=== PATIENT | male | born 1955 | race Caucasian/White ===

== ENCOUNTER 2017-01-03 21:49 | Inpatient (IN) | payer MEDICARE, OTHER, MEDICAID ==
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
[2017-01-04] MEDS ORDERED: Furosemide 20 MG/2 ML VIAL IVPUSH ONE ×3 (02:18→09:31)
[2017-01-04] MEDS ORDERED: LORazepam 2 MG/ML MDV IVPUSH ONE (02:43)
[2017-01-04] MEDS ORDERED: Lidocaine 2% Jelly 10 ML Urojet MUCMEM ONE (03:51)
[2017-01-04] MEDS ORDERED: Acetaminophen/oxyCODONE 325-5 MG Tab PO PRN ×2 (04:07→14:47)
[2017-01-04] MEDS ORDERED: Sodium Chloride 0.9% 250 ML ONE (05:12)
[2017-01-04] MEDS ORDERED: hydrALAZINE 20 MG/ML SDV IVPUSH PRN (06:26)
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
--- NOTE | 2017-01-04 09:15 | CT ---
CT abdomen and pelvis Technique: Multiple axial sections were obtained from above the kidneys inferiorly through the pubic symphysis. Intravenous and oral contrast was not utilized. Study has been performed as a ureteral stone protocol. Comparison: Previous CT abdomen and pelvis exam performed as a stone protocol dated 09/11/15. Findings: Visualized lung bases show nothing acute. Noncontrast appearance of the liver and spleen appears within normal limits. Adrenal glands show no nodule. Pancreas is within normal limits. Gallbladder shows no calcified gallstones. Mild atherosclerotic calcifications seen within the aorta. No retroperitoneal adenopathy is seen. Small normal-appearing lymph nodes are seen within the retroperitoneum which are stable from prior exam. Increased density seen within the bladder. Difficult to exclude a small amount of blood or high density sediment. Bladder wall is also thickened presumably due to change from bladder outlet obstruction. Bladder does not appear significantly dilated. No pelvic mass or adenopathy is seen. Increased density noted within the anterior abdominal wall fat compatible with change from previous subcutaneous injections. Appendix is seen and appears normal in size. Previous lumbar spine surgery is seen. Mild degenerative change also present within the spine. Small intrathecal catheter is seen within the spine believed to be disconnected. Kidneys show no abnormal calcifications. No ureteral stone or ureteral dilatation is seen. Impression: 1. Increased density within the bladder either due to small amount of blood or high density sediment. Bladder wall is mildly thickened. 2. Previous lumbar spine surgery which appears stable from prior study. Small intrathecal catheter is seen which appears to be disconnected. These findings are stable from prior exam. 3. Other incidental findings. No renal calculi, hydronephrosis or ureteral stone is seen. Agree with preliminary report issued by [employer] (preliminary report dictated on 01/04/17, 12:15 AM Central Time) Diagnostic code #2
[2017-01-04] MEDS ORDERED: Furosemide 20 MG/2 ML VIAL ONE (09:35)
[2017-01-04] MEDS: Famotidine 20 MG Tab PO SCH ×2 (09:41→20:43)
[2017-01-04] MEDS: Sodium Chloride 0.9% 1,000 ML IV SCH ×2 (09:44→19:25)
[2017-01-04] MEDS ORDERED: Oxybutynin 5 MG Tab PO PRN (10:51)
[2017-01-04] MEDS ORDERED: Magnesium Sulfate/Water 2 GM in Premix Bag 1 BAG IV ONE (10:53)
[2017-01-04] MEDS ORDERED: Metoprolol Succinate 50 MG Tab.ER PO SCH (11:00)
[2017-01-04] MEDS: Nicotine 14 MG/24 Hr Patch TRDERM SCH (11:15)
[2017-01-04] MEDS: Polyethylene Glycol 3350 Powder 17 GM Packet PO SCH (11:18)
[2017-01-04] MEDS: Lisinopril 20 MG Tab PO SCH (11:19)
[2017-01-04] MEDS: amLODIPine 5 MG Tab PO SCH (11:19)
[2017-01-04] MEDS ORDERED: Metoprolol Succinate 50 MG Tab.ER PO ONE (12:45)
[2017-01-04] MEDS ORDERED: CIPROFLOXACIN HCL 500 MG PO SCH (13:00)
[2017-01-04] MEDS ORDERED: Levofloxacin/Dextrose 5%-Water 750 MG in Premix Bag 1 BAG IV ONE (13:49)
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
[2017-01-04] MEDS: Levofloxacin/Dextrose 5%-Water 750 MG in Premix Bag 1 BAG IV SCH (15:37)
[2017-01-04] MEDS: Ferrous Sulfate 325 MG Tab PO SCH (20:43)
[2017-01-05] MEDS: Sodium Chloride 0.9% 1,000 ML IV SCH (05:30)
[2017-01-05] MEDS: Nicotine 14 MG/24 Hr Patch TRDERM SCH (08:21)
[2017-01-05] MEDS: amLODIPine 5 MG Tab PO SCH (08:23)
[2017-01-05] MEDS: Famotidine 20 MG Tab PO SCH (08:23)
[2017-01-05] MEDS: Ferrous Sulfate 325 MG Tab PO SCH (08:23)
[2017-01-05] MEDS: Lisinopril 20 MG Tab PO SCH (08:23)
[2017-01-05] MEDS: Polyethylene Glycol 3350 Powder 17 GM Packet PO SCH (08:25)
[2017-01-05] MEDS ORDERED: Metoprolol Succinate 50 MG Tab.ER PO SCH (09:00)
[2017-01-05] MEDS ORDERED: cloNIDine 0.1 MG Tab PO SCH (09:00)
[2017-01-05] MEDS ORDERED: Allopurinol 300 MG Tab PO SCH (10:51)
--- NOTE | 2017-01-05 15:09 | PCM.DCSUM1 ---
Discharge Summary - Hospital Course Free Text/Narrative:: Florencio is a 61yo male admitted through the ER with acute hematuria, large clots and urinary retention. Initially it was thought that he had rectal bleeding but further investigation reveals this to be urethral in nature and not rectal. He was unable to void in the ED. Andino cath was placed with becky hematuria. Andino was irrigated x 2 with large clots. UA was obtained but unable to be run as it was too bloody. Patient had lumbar back surgery 2 weeks ago, had andino catheter inserted at that time, without difficulty. Andino was removed without difficulty and he was voiding without difficulty after removal. He has had no problems with voiding, dysuria, urinary retention since that time. He has hx of prostate cancer with TURP one year ago in [facility]. He saw Dr. Jerome, Urologist yesterday for a checkup. He had no interventions but was told his PSA was elevated and "the doctor was concerned about that. Patient was admitted for anemia and hematuria. He was transfused one unit PRBC with improvement in hgb. Repeat UA was obtained the following morning with AUTI noted. He was started on Levaquin IV. Call was placed to Urology who recommended keep andino cath in place for at least 24 hours then dc. Urine became clear, without gross hematuria. The following day, catheter was discontinued. Patient was able to void on his own without evidence of hematuria or clots. He will be discharged on levaquin oral abx and with follow up with Urology for further eval and likely cystoscopy based on Dr. Crisostomo's recommendations over the telephone. PT /OT worked with patient, as well as social work who found him to be in need of many services. He will resume PT/OT, home and community based referral placed. Discussed [facility] placement with SW who discussed with patient. He may consider this option in the future. He will have f/up with his PCP, ONUR Low within 1 week of discharge for recheck. - Discharge Data Discharge Date: 01/05/17 (admit date 01/04/17) Discharge Disposition: Home, Self-Care 01 Condition: Good - Discharge Diagnosis/Problem(s) (1) Hematuria SNOMED Code(s): 73266741 ICD Code: R31.9 - HEMATURIA, UNSPECIFIED Status: Acute Priority: High (2) Anemia SNOMED Code(s): 154806946 ICD Code: D64.9 - ANEMIA, UNSPECIFIED Status: Acute Priority: High Qualifiers: Anemia type: unspecified type Qualified Code(s): D64.9 - Anemia, unspecified (3) UTI (urinary tract infection) SNOMED Code(s): 59001659 ICD Code: N39.0 - URINARY TRACT INFECTION, SITE NOT SPECIFIED Status: Acute Priority: High Qualifiers: Urinary tract infection type: acute cystitis Hematuria presence: with hematuria Qualified Code(s): N30.01 - Acute cystitis with hematuria (4) Status post lumbar surgery SNOMED Code(s): 092235084, 847204864 ICD Code: Z98.890 - OTHER SPECIFIED POSTPROCEDURAL STATES Status: Acute Priority: High Problem Details: s/p lumbar surgery 2 wks ago - Patient Summary/Data Operative Procedure(s) Performed: None Complications: None Consults: Consultations 01/04/17 06:24 Consult to Case Management [CONS] Routine Consult to Associate Professor Of Biblical Studies [CONS] Routine 01/04/17 09:08 Consult to Occupational Therapy [OT Evaluation and Treatment] [CONS] Routine Consult to Physical Therapy [PT Evaluation and Treatment] [CONS] Routine Labs Pending at D/C: None Recommended Follow-up Testing/Procedures: Follow up with Urology as soon as next appointment is available Follow up with ONUR Lara in 5-7 days for recheck Return to ER or clinic if unable to void or if blood noted in urine, fever, abdominal pain, other concerns Planned Operative Procedure(s) after DC: Likely cystoscopy with Urology at follow up per Dr. Loving recommendations Hospital Course: As above - Patient Instructions Diet: Heart Healthy Diet, Drink 8-10+ Glasses/Day Activity: As Tolerated Showering/Bathing: May Shower Notify Provider of: Fever, Increased Pain, Nausea and/or Vomiting - Discharge Plan Prescriptions/Med Rec: Levofloxacin [Levaquin] 500 mg PO DAILY #14 tablet Home Medications: Home Meds Allopurinol [Zyloprim] 150 mg PO MOWEFR 08/17/15 [History] Lisinopril 20 mg PO DAILY 08/17/15 [History] Oxybutynin 5 mg PO BID PRN MDD overactive bladder 08/17/15 [History] metFORMIN [Glucophage] 1,000 mg PO BID 08/17/15 [History] Ascorbate Calcium [Vitamin C] 500 mg PO BID 01/04/17 [History] Aspirin [Adult Low Dose Aspirin EC] 81 mg PO DAILY 01/04/17 [History] Calcium Carbonate/Vitamin D3 [Calcium 500-Vit D3 200 Caplet] 1 tab PO BID [History] Diazepam [Valium] 5 mg PO QID PRN 01/04/17 [History] Ferrous Sulfate 325 mg PO BID 01/04/17 [History] Hydrocodone/Acetaminophen [[place] 5-325] 1 - 2 tab PO Q4H PRN 01/04/17 [History] Indomethacin [Indocin] 25 mg PO DAILY PRN 01/04/17 [History] Leuprolide [Lupron Depot 4-Month] 30 mg SQ ASDIRECTED 01/04/17 [History] Metoprolol Succinate 100 mg PO DAILY 01/04/17 [History] Nicotine [Habitrol] 14 mg TRDERM DAILY 01/04/17 [History] Polyethylene Glycol 3350 [MiraLAX] 17 gm PO DAILY 01/04/17 [History] Sennosides/Docusate Sodium [Senna-Docusate Sodium] 1 tab PO BID 01/04/17 [ History] amLODIPine [Norvasc] 5 mg PO DAILY 01/04/17 [History] cloNIDine [Catapres] 0.1 mg PO DAILY 01/04/17 [History] Levofloxacin [Levaquin] 500 mg PO DAILY #14 tablet 01/05/17 [Rx] Patient Handouts: Anemia, Nonspecific, Blood Transfusion, Care After, Easy-to- Read, Hematuria, Adult Forms: ED Department Discharge Referrals: Charu Quintana NP [Primary Care Provider] - Greg Crisostomo MD [Consulting Physician] - 01/22/17 1:30 pm (See Dr Crisostomo at [facility] in [place] on January 22 at 1:30 Central time.) - Discharge Summary/Plan Comment DC Time >30 min.: Yes (40 min) - General Info Date of Service: 01/05/17 Admission Dx/Problem (Free Text: Admission Diagnosis/Problem Admission Diagnosis/Problem Anemia Florencio is seen late morning, doing well. Denies complaints of pain, discomfort. Afebrile. Andino dc'd this am, voided without difficulty. Functional Status: Reports: pain controlled, tolerating diet, ambulating, urinating. Denies: new symptoms - Review of Systems General: Reports: No Symptoms HEENT: Reports: no symptoms Pulmonary: Reports: no symptoms Cardiovascular: Reports: No Symptoms Gastrointestinal: Reports: No symptoms Genitourinary: Reports: other (andino cath dc'd this morning, voiding independently, clear yellow urine) Musculoskeletal: Reports: no symptoms Skin: Reports: no symptoms Neurological: Reports: No Symptoms Psychiatric: Reports: no symptoms - Patient Data Vitals - Most Recent: Last Vital Signs Temp 98.8 F 01/05/17 02:57 Pulse 80 01/05/17 08:24 Resp 12 01/05/17 02:57 BP 145/86 H 01/05/17 08:24 Pulse Ox 93 L 01/05/17 02:57 Weight - Most Recent: 252 lb 9.6 oz I&O - Last 24 hours: Intake & Output 01/05/17 01/05/17 01/05/17 06:59 14:59 22:59 Intake Total 2686 120 Output Total 2000 Balance 686 120 Lab Results - Last 24 hrs: Laboratory Results - last 24 hr 01/05/17 01/05/17 Range/Units 09:02 09:02 WBC 6.36 (4.23-9.07) K/mm3 RBC 3.38 L (4.63-6.08) M/mm3 Hgb 10.9 L (13.7-17.5) gm/L Hct 32.6 L (40.1-51.0) % MCV 96.4 H (79.0-92.2) fl MCH 32.2 (25.7-32.2) pg MCHC 33.4 (32.2-35.5) g/dl RDW Std Deviation 47.8 H (35.1-43.9) fL Plt Count 481 H (163-337) K/mm3 MPV 9.7 (9.4-12.3) fl Neut % (Auto) 65.8 (34.0-67.9) % Lymph % (Auto) 11.8 L (21.8-53.1) % Lee % (Auto) 9.3 (5.3-12.2) % Eos % (Auto) 11.5 H (0.8-7.0) Baso % (Auto) 1.3 H (0.1-1.2) % Neut # (Auto) 4.19 (1.78-5.38) K/mm3 Lymph # (Auto) 0.75 L (1.32-3.57) K/mm3 Lee # (Auto) 0.59 (0.30-0.82) K/mm3 Eos # (Auto) 0.73 H (0.04-0.54) K/mm3 Baso # (Auto) 0.08 (0.01-0.08) K/mm3 Sodium 140 (136-145) mEq/L Potassium 4.1 (3.5-5.1) mEq/L Chloride 106 (98-107) mEq/L Carbon Dioxide 23 (21-32) mEq/L Anion Gap 15.1 H (5-15) BUN 8 (7-18) mg/dL Creatinine 0.7 (0.7-1.3) mg/dL Est Cr Clr Drug Dosing 135.80 mL/min Estimated GFR (MDRD) > 60 (>60) mL/min BUN/Creatinine Ratio 11.4 L (14-18) Glucose 114 H (74-106) mg/dL Calcium 8.8 (8.5-10.1) mg/dL Magnesium 1.6 L (1.8-2.4) mg/dl C-Reactive Protein 3.2 H* (<1.0) mg/dL GREG Results - Last 24 hrs: Microbiology 01/04/17 10:01 Urine Culture - Preliminary Urine, Bladder NO GROWTH AFTER 1 DAY Med Orders - Current: Current Medications Allopurinol (Zyloprim) 150 mg PO MOWEFR [facility] Last Admin: 01/05/17 13:22 Dose: 150 mg Amlodipine Besylate (Norvasc) 5 mg PO DAILY [facility] Last Admin: 01/05/17 08:23 Dose: 5 mg Clonidine HCl (Catapres) 0.1 mg PO DAILY [facility] Last Admin: 01/05/17 08:24 Dose: 0.1 mg Famotidine (Pepcid) 20 mg PO BID [facility] Last Admin: 01/05/17 08:23 Dose: 20 mg Ferrous Sulfate (Ferrous Sulfate) 325 mg PO BID [facility] Last Admin: 01/05/17 08:23 Dose: 325 mg Hydralazine HCl (Apresoline) 20 mg IVPUSH Q4H PRN PRN Reason: sb/p >160 Levofloxacin/Dextrose 750 mg/ (Premix) 150 mls @ 100 mls/hr IV Q24H [facility] Last Admin: 01/04/17 15:37 Dose: 100 mls/hr Lisinopril (Prinivil) 20 mg PO DAILY [facility] Last Admin: 01/05/17 08:23 Dose: 20 mg Metoprolol Succinate (Toprol Xl) 100 mg PO DAILY [facility] Last Admin: 01/05/17 08:24 Dose: 100 mg Miscellaneous Information (Remove Patch) 0 ea TRDERM DAILY [facility] Last Admin: 01/05/17 08:49 Dose: 1 ea Nicotine (Habitrol) 14 mg TRDERM DAILY [facility] Last Admin: 01/05/17 08:21 Dose: 14 mg Oxybutynin Chloride (Oxybutynin) 5 mg PO BID PRN PRN Reason: OVERACTIVE BLADDER Last Admin: 01/04/17 11:15 Dose: 5 mg Oxycodone/Acetaminophen (Percocet 325-5 Mg) 2 tab PO Q6H PRN PRN Reason: Pain Last Admin: 01/04/17 20:43 Dose: 2 tab Polyethylene Glycol (Miralax) 17 gm PO DAILY [facility] Last Admin: 01/05/17 08:25 Dose: 17 gm Discontinued Medications Furosemide (Lasix) 20 mg IVPUSH ONETIME ONE Stop: 01/04/17 02:19 Last Admin: 01/04/17 02:26 Dose: 20 mg Furosemide (Lasix) 20 mg IVPUSH ONETIME ONE Stop: 01/04/17 07:01 Last Admin: 01/04/17 09:40 Dose: 20 mg Furosemide (Lasix) 20 mg IVPUSH NOW ONE Stop: 01/04/17 09:32 Last Admin: 01/04/17 09:46 Dose: Not Given Furosemide (Lasix) Confirm Administered Dose 20 mg .ROUTE .STK-MED ONE Stop: 01/04/17 09:36 Last Admin: 01/04/17 09:46 Dose: Not Given Sodium Chloride (Normal Saline) Confirm Administered Dose 250 mls @ as directed .ROUTE .STK-MED ONE Stop: 01/04/17 05:13 Last Admin: 01/04/17 05:40 Dose: 250 ml Sodium Chloride (Normal Saline) 1,000 mls @ 100 mls/hr IV ASDIRECTED [facility] Last Admin: 01/05/17 05:30 Dose: 100 mls/hr Magnesium Sulfate 2 gm/ Premix 50 mls @ 25 mls/hr IV ONETIME ONE Stop: 01/04/17 12:52 Last Admin: 01/04/17 11:14 Dose: 25 mls/hr Levofloxacin/Dextrose 750 mg/ (Premix) 150 mls @ 100 mls/hr IV ONETIME ONE Stop: 01/04/17 15:18 Last Admin: 01/04/17 14:21 Dose: Not Given Lidocaine HCl (Xylocaine 2% Jelly) 10 ml MUCMEM ONETIME ONE Stop: 01/04/17 03:52 Last Admin: 01/04/17 21:20 Dose: Not Given Lorazepam (Ativan) 0.5 mg IVPUSH ONETIME ONE Stop: 01/04/17 02:44 Last Admin: 01/04/17 02:49 Dose: 0.5 mg Metoprolol Succinate (Toprol Xl) 100 mg PO DAILY [facility] Last Admin: 01/04/17 12:04 Dose: Not Given Metoprolol Succinate (Toprol Xl) 50 mg PO ONETIME ONE Stop: 01/04/17 12:46 Last Admin: 01/04/17 12:20 Dose: 50 mg Oxycodone/Acetaminophen (Percocet 325-5 Mg) 2 tab PO Q6H PRN PRN Reason: Pain Last Admin: 01/04/17 04:50 Dose: 2 tab Ciprofloxacin Hcl (500 Mg) 0 each PO QID [facility] Last Admin: 01/04/17 12:09 Dose: Not Given - Exam Quality Assessment: Reports: DVT prophylaxis (Teds ordered- patient is refusing ; chemical dvt prophylaxis is contraindicated due to hematuria/anemia. SCD's ordered) General: Reports: alert, oriented, cooperative, no acute distress HEENT: Reports: Pupils equal, Pupils reactive, EOMI, Mucous membr. moist/pink Neck: Reports: supple Lungs: Reports: Clear to auscultation, Normal respiratory effort Cardiovascular: Reports: Regular Rate, Regular Rhythm Abdomen: Reports: bowel sounds present, soft, no tenderness, no distension (Male) Exam: Deferred Rectal (Males) Exam: Deferred Extremities: Reports: no calf tenderness Skin: Reports: warm, dry, intact Neurological: Reports: no new focal deficit Psy/Mental Status: Reports: alert, normal affect, normal mood *Q Meaningful Use (DIS) - VTE *Q VTE Criteria *Q: - Stroke *Q Stroke Criteria *Q: - AMI *Q AMI Criteria *Q:
[2017-01-05 15:18] VITALS: BP 123/80
[2017-01-05] MEDS: Levofloxacin/Dextrose 5%-Water 750 MG in Premix Bag 1 BAG IV SCH (15:26)
== END 2017-01-05 17:23 | disposition home or self-care (01) | DRG 812 ==
LOC: JD.ED 21:49 → JD.MS 01-04 02:16 → OBSVTOIN 01-04 02:16 → JD.MS 01-04 04:01
PROVIDERS: ADMIT Internal Medicine Cardiovascular Disease; ATTEND Internal Medicine Cardiovascular Disease
PROC: 30233N1 Transfusion of Nonautologous Red Blood Cells into Peripheral Vein, Percutaneous Approach (ICD-10-PCS; principal; 2017-01-04)
DX: D64.9 Anemia, unspecified (principal); N39.0 Urinary tract infection, site not specified; T81.4XXA Infection following a procedure, initial encounter; R31.9 Hematuria, unspecified; Z98.890 Other specified postprocedural states; Z85.46 Personal history of malignant neoplasm of prostate; I10 Essential (primary) hypertension; K21.9 Gastro-esophageal reflux disease without esophagitis; E11.9 Type 2 diabetes mellitus without complications; C61 Malignant neoplasm of prostate; Z79.84 Long term (current) use of oral hypoglycemic drugs; G89.29 Other chronic pain; M54.9 Dorsalgia, unspecified; Z79.899 Other long term (current) drug therapy; Z87.891 Personal history of nicotine dependence
CPT/HCPCS: 36415; 36430; 51700; 51702; 74176; 74176-26; 80048; 80053; 81001; 83690; 83735; 85025; 85610; 86140; 86850; 86900; 86901; 86922; 87086; 96374; 96375; 97116-GP; 97161-GP; 97166-GO; 97535-GO; 99232; 99239; 99284; 99285-25; A9270-GY; J1956; J2060; J3475; J7040; J7050; P9016

== ENCOUNTER 2017-03-16 17:09 | Emergency (ER) | payer MEDICARE, OTHER, MEDICAID ==
[2017-03-16 17:21] VITALS: BP 154/77
--- NOTE | 2017-03-16 18:16 | EDM.PDOC ---
ED HPI GENERAL MEDICAL PROBLEM - General Chief Complaint: Back Pain or Injury Stated Complaint: Back pain Time Seen by Provider: 03/16/17 17:40 Source of Information: Reports: Patient, RN Notes Reviewed History Limitations: Reports: No Limitations - History of Present Illness INITIAL COMMENTS - FREE TEXT/NARRATIVE: 61 year old male presents to the ED with complaints of left sided back and flank pain. He had a laminectomy of the lumbar spine with Dr. Delgado on . He has fallen twice since the surgery. After the first fall he had x-rays done and was told they were normal. He then fell again 1 week ago. He reports landing on his buttocks. He's had persistent left sided pain since the fall. He called his surgeon and they recommended he come to the ED if symptoms worsen. He reports a "grabbing" and tightening sensation to his low back. He denies numbness, tingling, weakness, paresthesias, saddle anesthesia, or loss of bowel/ bladder function. He uses a walker at home and is ambulating with steady gait per his baseline. He also has pain to his left flank. He reports hematuria earlier this week as well. He has a history of prostate cancer and has chronic difficulty starting his stream. He reports urinary frequency at night time. Lower Back Pain Score (Numeric/FACES): 4 - Related Data Allergies Allergy/AdvReac Type Severity Reaction Status Date / Time No Known Allergies Allergy Verified 09/19/16 22:16 Home Meds: Home Meds Allopurinol [Zyloprim] 150 mg PO MOWEFR 08/17/15 [History] Lisinopril 20 mg PO DAILY 08/17/15 [History] Oxybutynin 5 mg PO BID PRN MDD overactive bladder 08/17/15 [History] metFORMIN [Glucophage] 1,000 mg PO BID 08/17/15 [History] Ascorbate Calcium [Vitamin C] 500 mg PO BID 01/04/17 [History] Aspirin [Adult Low Dose Aspirin EC] 81 mg PO DAILY 01/04/17 [History] Calcium Carbonate/Vitamin D3 [Calcium 500-Vit D3 200 Caplet] 1 tab PO BID [History] Diazepam [Valium] 5 mg PO QID PRN 01/04/17 [History] Ferrous Sulfate 325 mg PO BID 01/04/17 [History] Hydrocodone/Acetaminophen [[place] 5-325] 1 - 2 tab PO Q4H PRN 01/04/17 [History] Indomethacin [Indocin] 25 mg PO DAILY PRN 01/04/17 [History] Leuprolide [Lupron Depot 4-Month] 30 mg SQ ASDIRECTED 01/04/17 [History] Metoprolol Succinate 100 mg PO DAILY 01/04/17 [History] Nicotine [Habitrol] 14 mg TRDERM DAILY 01/04/17 [History] Polyethylene Glycol 3350 [MiraLAX] 17 gm PO DAILY 01/04/17 [History] Sennosides/Docusate Sodium [Senna-Docusate Sodium] 1 tab PO BID 01/04/17 [ History] amLODIPine [Norvasc] 5 mg PO DAILY 01/04/17 [History] cloNIDine [Catapres] 0.1 mg PO DAILY 01/04/17 [History] Levofloxacin [Levaquin] 500 mg PO DAILY #14 tablet 01/05/17 [Rx] Past Medical History HEENT History: Reports: Impaired Vision Cardiovascular History: Reports: Hypertension Gastrointestinal History: Reports: GERD Genitourinary History: Reports: Other (See Below) Other Genitourinary History: prostate cancer Musculoskeletal History: Reports: Back Pain, Chronic, Fracture Neurological History: Reports: Brain Injury, Head Trauma Psychiatric History: Reports: None Endocrine/Metabolic History: Reports: Diabetes, Type II Hematologic History: Reports: None Immunologic History: Reports: None Oncologic (Cancer) History: Reports: Prostate Dermatologic History: Reports: None - Infectious Disease History Infectious Disease History: Reports: None - Past Surgical History Cardiovascular Surgical History: Reports: None Respiratory Surgical History: Reports: None GI Surgical History: Reports: Colonoscopy Male Surgical History: Reports: TURP-Transurethral Resection of Prostate Neurological Surgical History: Reports: Lumbar Spine Other Neurological Surgeries/Procedures: 12/2016 lumbar spine surgery Musculoskeletal Surgical History: Reports: Knee Replacement, Other (See Below) Other Musculoskeletal Surgeries/Procedures:: bilateral knee replacements Social & Family History - Family History Family Medical History: Unobtainable - Tobacco Use Smoking Status *Q: Current Every Day Smoker Years of Tobacco use: 25 Packs/Tins Daily: 0.5 Used Tobacco, but Quit: No Second Hand Smoke Exposure: No - Caffeine Use Caffeine Use: Reports: Soda - Alcohol Use Days Per Week of Alcohol Use: 4 Number of Drinks Per Day: 3 Total Drinks Per Week: 12 - Recreational Drug Use Recreational Drug Use: No - Living Situation & Occupation Living situation: Reports: Single Occupation: Disabled ED ROS GENERAL - Review of Systems Review Of Systems: See Below Constitutional: Reports: No Symptoms. Denies: Fever, Chills Respiratory: Reports: No Symptoms. Denies: Shortness of Breath Cardiovascular: Reports: No Symptoms. Denies: Chest Pain GI/Abdominal: Reports: No Symptoms. Denies: Abdominal Pain, Nausea, Vomiting : Reports: Flank Pain, Frequency, Hematuria Musculoskeletal: Reports: Back Pain, Muscle Pain Neurological: Reports: No Symptoms. Denies: Numbness, Paresthesia, Tingling, Difficulty Walking, Weakness ED EXAM,LOWER BACK PAIN/INJURY - Physical Exam Exam: See Below Exam Limited By: No Limitations General Appearance: Alert, WD/WN, No Apparent Distress Respiratory/Chest: No Respiratory Distress, Lungs Clear, Normal Breath Sounds Cardiovascular: Regular Rate, Rhythm GI/Abdominal: Normal Bowel Sounds, Soft, Non-Tender Back Exam: Normal Inspection, Full Range of Motion, CVA Tenderness (L), Muscle Spasm, Paraspinal Tenderness (left side ). No: CVA Tenderness (R), Vertebral Tenderness Neurological: Alert, Normal Mood/Affect, Normal Dorsiflexion, Normal Plantar Flexion, Normal Gait (with walker), No Motor/Sensory Deficits Skin Exam: Warm, Dry, Intact Course - Vital Signs Last Recorded V/S: Last Vital Signs Temp 97.5 F 03/16/17 17:16 Pulse 77 03/16/17 17:16 Resp 16 03/16/17 17:16 BP 154/77 H 03/16/17 17:16 Pulse Ox 97 03/16/17 17:16 - Orders/Labs/Meds Orders: Active Orders 24 hr Category Date Time Status Abdomen Pelvis wo Cont [CT] Stat Exams 03/16/17 19:01 Taken Labs: Laboratory Tests 03/16/17 Range/Units 18:25 Urine Color Yellow (Yellow) Urine Appearance Clear (Clear) Urine pH 6.0 (5.0-8.0) Ur Specific [place] 1.020 (1.005-1.030) Urine Protein 1+ H (Negative) Urine Glucose (UA) Negative (Negative) Urine Ketones Negative (Negative) Urine Occult Blood 2+ H (Negative) Urine Nitrite Negative (Negative) Urine Bilirubin Negative (Negative) Urine Urobilinogen 0.2 (0.2-1.0) Ur Leukocyte Esterase Negative (Negative) Urine RBC 20-30 H (0-5) /hpf Urine WBC 0-5 (0-5) /hpf Ur Epithelial Cells 0-5 (0-5) /hpf Urine Bacteria Occasional (FEW) /hpf Urine Mucus Not seen (FEW) /hpf - Re-Assessments/Exams Free Text/Narrative Re-Assessment/Exam: 03/16/17 19:01 Patient has 2+ blood and 20-30 RBCs on UA. No infection. CT of lumbar spine reviewed with Dr. Orellana. Awaiting radiologist read. There appears to be a possible kidney stone, however will need proper abdomen/pelvis CT to further evaluate. 03/16/17 19:08 CT of lumbar spine read by Dr. Christina, impression: 1. extensive lumbar spine surgery with degenerative change. Previous epidural electrode is seen. 2. Nothing acute appreciated. 03/16/171999 CT of abdomen/pelvis without contrast is negative for hydronephrosis or kidney stone. Patient will be discharged home. He is to f /u with his PCP next week. He has pain medication at home and declined any additional prescriptions. Educated on return precautions. Discharge instructions as documented. Departure - Departure Time of Disposition: 20:10 Disposition: Home, Self-Care 01 Condition: Good Clinical Impression: Hematuria Chronic back pain Qualifiers: Back pain location: low back pain Back pain laterality: left Sciatica presence : without sciatica Qualified Code(s): M54.5 - Low back pain - Discharge Information Instructions: Hematuria, Adult Referrals: Charu Quintana [employer] [Primary Care Provider] - Forms: ED Department Discharge Additional Instructions: Continue your current medications as prescribed Return to ER with any new or worsening symptoms Follow-up with your primary care provider next week for recheck - My Orders Last 24 Hours: My Active Orders 03/16/17 19:01 Abdomen Pelvis wo Cont [CT] Stat - Assessment/Plan Last 24 Hours: My Active Orders 03/16/17 19:01 Abdomen Pelvis wo Cont [CT] Stat
--- NOTE | 2017-03-16 18:57 | CT ---
CT lumbar spine Technique: Multiple axial sections were obtained from above the T11-T12 disc inferiorly to the L5-S1 disc. Reconstructed sagittal and coronal images were reviewed. Comparison: Previous MRI lumbar spine study of 02/17/16. Findings: Epidural electrode is identified within the central canal. The termination end is not seen on this exam and is above T11. Trans-pedicle screws are seen from L2-L5. Lucent defects within S1 compatible with previous screw placements with screws that have been removed. Posterior laminectomies are seen throughout the lumbar spine. Orthopedic hardware causes significant artifact and makes evaluation difficult. There is posterior spurring noted to the left of midline at L3-L4 indenting the left anterior thecal sac. Vacuum phenomena noted within the sacroiliac joints. Scattered degenerative change is seen. Nothing acute is appreciated. Impression: 1. Extensive lumbar spine surgery with degenerative change. Previous epidural electrode is seen. 2. Nothing acute is appreciated. Diagnostic code #3
--- NOTE | 2017-03-18 17:53 | CT ---
CT abdomen and pelvis Technique: Multiple axial sections were obtained from the top of the liver inferiorly through the pubic symphysis. Intravenous and oral contrast was not utilized. Study was performed as a ureteral stone protocol. Findings: Visualized lung bases show nothing acute. Noncontrast appearance of the liver and spleen appear within normal limits. No calcified gallstones are seen. Small soft tissue nodule is identified off the spleen compatible with incidental accessory splenic tissue. Adrenal glands show no nodule. Pancreas shows some fatty infiltration. Aorta shows no aneurysmal dilatation. No retroperitoneal adenopathy is seen. Appendix is seen and appears normal. No pelvic mass or adenopathy is seen. Bladder wall appears somewhat thickened. No ureteral dilatation or ureteral stone is seen. No renal calculi are identified. Cyst is identified within the mid to lower left kidney measuring approximately 1.2 cm. Degenerative change is noted throughout the spine with evidence of extensive prior surgery. No bowel dilatation is seen. Mild increased stool is noted within the colon. No free fluid or inflammatory change is seen. Impression: 1. Bladder wall thickening. Differential includes cystitis as well as bladder outlet obstruction. 2. No renal calculi, ureteral dilatation or ureteral stone is seen. 3. Other incidental findings as noted above. Diagnostic code #3 Agree with preliminary report issued by [employer] ([facility] preliminary report dictated on 03/16/17, 8:56 PM Central Time)
== END 2017-03-16 20:30 | disposition home or self-care (01) ==
LOC: JD.ED 17:09
DX: M54.5 Low back pain (principal); G89.29 Other chronic pain; R31.9 Hematuria, unspecified; F17.210 Nicotine dependence, cigarettes, uncomplicated; I10 Essential (primary) hypertension; K21.9 Gastro-esophageal reflux disease without esophagitis; E11.9 Type 2 diabetes mellitus without complications; Z98.890 Other specified postprocedural states; Z96.659 Presence of unspecified artificial knee joint; Z79.84 Long term (current) use of oral hypoglycemic drugs; Z79.899 Other long term (current) drug therapy
CPT/HCPCS: 72131; 72131-26; 74176; 74176-26; 81001; 99284; 99284-25

== ENCOUNTER 2017-07-11 19:17 | Emergency (ER) | payer MEDICARE, OTHER, MEDICAID ==
[2017-07-11 19:38] VITALS: BP 116/82
--- NOTE | 2017-07-11 19:41 | EDM.PDOC ---
ED HPI GENERAL MEDICAL PROBLEM - General Chief Complaint: Genitourinary Problem Stated Complaint: PEEingf BLOOD/SHOULDER PAIN Time Seen by Provider: 07/11/17 19:41 Source of Information: Reports: Patient History Limitations: Reports: No Limitations - History of Present Illness INITIAL COMMENTS - FREE TEXT/NARRATIVE: 62-year-old male presents to the ED with gross hematuria for about 20 days . There is blood with every voiding but over the last few days his become much worse and he has inability to void even though he has a constant feeling of need to void at times. Patient had previous prostatectomy and has been told that his PSAs thus far are negative. He did have chemotherapy and radiotherapy to the prostate bed after postoperatively. Dr. Tipton did the initial surgery. He is currently being followed by . Recently the urine is burning a dysuria with voiding. Some component of urgency and frequency. He has a feeling that he is not emptying his bladder completely. He states at times there is blood clots within his urine. Sometimes has to push very hard to expel urine and clot. He has not apparently seen a urologist for a couple of months. No cystoscopy hasn't been done to his knowledge for at least 2-3 months. Therefore the source of the bleeding remains unclear whether it's post radiation injury to the bladder versus bleeding in the prostatic fossa. He has no fever or chills. He does have pain between his shoulder blades but he states it's been there for a long period of time. Patient has chronic back pain with radicular pain to the left knee. Has chronic pain syndrome. Still receiving Lupron injection every 4 months. He is on indomethacin and aspirin daily.Also found out later that he is recievuing Rimsol-50--bladder infusions every Sunday for the last 8 weeks, which can induce a chemical cystitis and dysuria . Last infusion Jun 24 ? Onset: Gradual (Over the last several months he said blood with every void. It is started to burn and with a sense of urgency and frequency the last week or more. No fever or chills.) Duration: Week(s):, Chronic (Hematuria) Location: Reports: Other (Urinary bladder) Quality: Reports: Burning, Other Severity: Moderate (Urgency with frequency) Improves with: Reports: None Worsens with: Reports: None Context: Denies: Activity, Exercise, Lifting, Sick Contact, Trauma Associated Symptoms: Reports: No Other Symptoms, Other (His pain between his shoulder blades which is chronic. Chronic low back pain.) Treatments WHEEL FITTER: Reports: Other (see below) (None.) Upper Back Pain Score (Numeric/FACES): 4 - Related Data Allergies Allergy/AdvReac Type Severity Reaction Status Date / Time No Known Allergies Allergy Verified 07/11/17 19:34 Home Meds: Home Meds Allopurinol [Zyloprim] 150 mg PO MOWEFR 08/17/15 [History] Lisinopril 20 mg PO DAILY 08/17/15 [History] Oxybutynin 5 mg PO BID PRN MDD overactive bladder 08/17/15 [History] metFORMIN [Glucophage] 1,000 mg PO BID 08/17/15 [History] Ascorbate Calcium [Vitamin C] 500 mg PO BID 01/04/17 [History] Aspirin [Adult Low Dose Aspirin EC] 81 mg PO DAILY 01/04/17 [History] Calcium Carbonate/Vitamin D3 [Calcium 500-Vit D3 200 Caplet] 1 tab PO BID [History] Diazepam [Valium] 5 mg PO QID PRN 01/04/17 [History] Ferrous Sulfate 325 mg PO BID 01/04/17 [History] Hydrocodone/Acetaminophen [[place] 5-325] 1 - 2 tab PO Q4H PRN 01/04/17 [History] Indomethacin [Indocin] 25 mg PO DAILY PRN 01/04/17 [History] Leuprolide [Lupron Depot 4-Month] 30 mg SQ ASDIRECTED 01/04/17 [History] Metoprolol Succinate 100 mg PO DAILY 01/04/17 [History] Nicotine [Habitrol] 14 mg TRDERM DAILY 01/04/17 [History] Polyethylene Glycol 3350 [MiraLAX] 17 gm PO DAILY 01/04/17 [History] Sennosides/Docusate Sodium [Senna-Docusate Sodium] 1 tab PO BID 01/04/17 [ History] amLODIPine [Norvasc] 5 mg PO DAILY 01/04/17 [History] cloNIDine [Catapres] 0.1 mg PO DAILY 01/04/17 [History] Levofloxacin [Levaquin] 500 mg PO DAILY #14 tablet 01/05/17 [Rx] Past Medical History HEENT History: Reports: Impaired Vision Cardiovascular History: Reports: Hypertension Gastrointestinal History: Reports: GERD Genitourinary History: Reports: Other (See Below) (Currently receiving Rimsol- 50 bladder irrigations once weekly for the last 8 weeks.) Other Genitourinary History: prostate cancer Musculoskeletal History: Reports: Back Pain, Chronic, Fracture Neurological History: Reports: Brain Injury, Head Trauma Psychiatric History: Reports: None Endocrine/Metabolic History: Reports: Diabetes, Type II Hematologic History: Reports: None Immunologic History: Reports: None Oncologic (Cancer) History: Reports: Prostate (Have total prostatectomy carried out since May [address] Dumont at [facility] in [place]. This was followed by radiotherapy and chemotherapy.) Dermatologic History: Reports: None - Infectious Disease History Infectious Disease History: Reports: None - Past Surgical History Cardiovascular Surgical History: Reports: None Respiratory Surgical History: Reports: None GI Surgical History: Reports: Colonoscopy Male Surgical History: Reports: TURP-Transurethral Resection of Prostate Neurological Surgical History: Reports: Lumbar Spine Other Neurological Surgeries/Procedures: 12/2016 lumbar spine surgery Musculoskeletal Surgical History: Reports: Knee Replacement, Other (See Below) Other Musculoskeletal Surgeries/Procedures:: bilateral knee replacements Social & Family History - Family History Family Medical History: Unobtainable - Tobacco Use Smoking Status *Q: Never Smoker Years of Tobacco use: 25 Packs/Tins Daily: 0.5 Used Tobacco, but Quit: No Second Hand Smoke Exposure: No - Caffeine Use Caffeine Use: Reports: Soda - Alcohol Use Days Per Week of Alcohol Use: 4 Number of Drinks Per Day: 3 Total Drinks Per Week: 12 - Recreational Drug Use Recreational Drug Use: No - Living Situation & Occupation Living situation: Reports: Single Occupation: Disabled ED ROS GENERAL - Review of Systems Review Of Systems: See Below Constitutional: Reports: Weakness, Fatigue. Denies: Fever, Chills, Decreased Appetite, Weight Loss HEENT: Reports: No Symptoms Respiratory: Reports: No Symptoms Cardiovascular: Reports: No Symptoms Endocrine: Reports: Fatigue, High Glucose (Has diabetes is well-controlled with current use of oral hypoglycemic agents.) GI/Abdominal: Reports: Other (Suprapubic pressure pain and discomfort at times.) . Denies: Abdominal Pain : Reports: Frequency, Hematuria (Gross hematuria for several months. With clots at times), Urgency Musculoskeletal: Reports: Neck Pain, Back Pain, Other Skin: Reports: No Symptoms (Pain between the shoulder blades mid thoracic spine) Neurological: Reports: Other (Radicular pain from) Psychiatric: Reports: No Symptoms Hematologic/Lymphatic: Reports: No Symptoms Immunologic: Reports: No Symptoms ED EXAM, RENAL/ - Physical Exam Exam: See Below Exam Limited By: No Limitations General Appearance: Alert, WD/WN, No Apparent Distress Eye Exam: Bilateral Eye: Normal Inspection, Other (Blepharal margins are mildly pallid.) Throat/Mouth: Normal Inspection, Normal Lips, Normal Oropharynx Respiratory/Chest: No Respiratory Distress, Lungs Clear, Normal Breath Sounds, No Accessory Muscle Use Cardiovascular: No Edema, No Gallop, No Murmur, No Rub, Tachycardia (Resting tachycardia of 1 12/m.) GI/Abdominal: Normal Bowel Sounds, Soft, Non-Tender, No Organomegaly, No Abnormal Bruit, No Mass, Pelvis Stable Back Exam: Decreased Range of Motion, Other (Well healed midline surgical scar.) Extremities: Other Neurological: Alert (Has had bilateral knee replacements. Left knee has and a small effusion.), Oriented, CN II-XII Intact, Normal Cognition Psychiatric: Normal Affect, Normal Mood Skin Exam: Warm, Dry, Intact, Normal Color, No Rash Course - Vital Signs Last Recorded V/S: Last Vital Signs Temp 36.9 C 07/11/17 19:34 Pulse 112 H 07/11/17 19:34 Resp BP 116/82 07/11/17 19:34 Pulse Ox 97 07/11/17 19:34 - Orders/Labs/Meds Orders: Active Orders 24 hr Category Date Time Status Bladder Scan [RC] ONETIME Care 07/11/17 19:53 Active Andino Catheter Insertion [Insert Urinary Catheter] [OM. Care 07/11/17 22:15 Ordered PC] Q24H Peripheral IV Care [RC] . DIRECTED Care 07/11/17 22:09 Active Urinary Catheter Assessment [RC] ASDIRECTED Care 07/11/17 22:09 Active CULTURE URINE [RM] Stat Lab 07/11/17 20:30 Received Sodium Chloride 0.9% [Normal Saline] 1,000 ml Med 07/11/17 23:07 Ordered IV ONETIME Sodium Chloride 0.9% [Saline Flush] Med 07/11/17 22:09 Active 10 ml FLUSH ASDIRECTED PRN Peripheral IV Insertion Adult [OM.PC] Stat Oth 07/11/17 22:09 Ordered Medication Orders Sodium Chloride (Normal Saline) 1,000 mls @ 200 mls/hr IV ONETIME ONE Stop: 07/12/17 04:06 Last Admin: 07/11/17 23:19 Dose: 200 mls/hr Sodium Chloride (Saline Flush) 10 ml FLUSH ASDIRECTED PRN PRN Reason: Keep Vein Open Last Admin: 07/11/17 22:21 Dose: 10 ml Labs: Laboratory Tests 07/11/17 07/11/17 07/11/17 Range/Units 20:30 22:05 22:05 WBC 9.18 H (4.23-9.07) K/mm3 RBC 3.63 L (4.63-6.08) M/mm3 Hgb 12.1 L (13.7-17.5) gm/L Hct 35.6 L (40.1-51.0) % MCV 98.1 H (79.0-92.2) fl MCH 33.3 H (25.7-32.2) pg MCHC 34.0 (32.2-35.5) g/dl RDW Std Deviation 45.2 H (35.1-43.9) fL Plt Count 303 (163-337) K/mm3 MPV 9.8 (9.4-12.3) fl Neutrophils % (Manual) 78 H (40-60) % Band Neutrophils % 0 (0-10) % Lymphocytes % (Manual) 10 L (20-40) % Atypical Lymphs % 0 % Monocytes % (Manual) 9 (2-10) % Eosinophils % (Manual) 3 (0.8-7.0) % Basophils % (Manual) 0 L (0.2-1.2) Platelet Estimate Adequate Plt Morphology Comment Normal RBC Morph Comment Normal PT (8.0-13.0) SECONDS INR APTT (22-36) SECONDS Sodium 136 (136-145) mEq/L Potassium 3.9 (3.5-5.1) mEq/L Chloride 98 (98-107) mEq/L Carbon Dioxide 27 (21-32) mEq/L Anion Gap 14.9 (5-15) BUN 15 (7-18) mg/dL Creatinine 1.0 (0.7-1.3) mg/dL Est Cr Clr Drug Dosing 93.89 mL/min Estimated GFR (MDRD) > 60 (>60) mL/min BUN/Creatinine Ratio 15.0 (14-18) Glucose 251 H (74-106) mg/dL Calcium 8.8 (8.5-10.1) mg/dL Total Bilirubin 0.4 (0.2-1.0) mg/dL AST 38 H (15-37) U/L ALT 33 (16-63) U/L Alkaline Phosphatase 191 H (46-116) U/L C-Reactive Protein 4.5 H* (<1.0) mg/dL Total Protein 6.6 (6.4-8.2) g/dl Albumin 3.0 L (3.4-5.0) g/dl Globulin 3.6 gm/dL Albumin/Globulin Ratio 0.8 L (1-2) Prostate Specific Ag (0.1-4.0) ng/mL Urine Color Red H (Yellow) Urine Appearance Turbid H (Clear) Urine pH 6.0 (5.0-8.0) Ur Specific [place] 1.020 (1.005-1.030) Urine Protein 3+ H (Negative) Urine Glucose (UA) Negative (Negative) Urine Ketones Negative (Negative) Urine Occult Blood 3+ H (Negative) Urine Nitrite Negative (Negative) Urine Bilirubin 1+ H (Negative) Urine Urobilinogen 0.2 (0.2-1.0) Ur Leukocyte Esterase Trace H (Negative) Urine RBC Too numerous to cnt H (0-5) /hpf Urine WBC 0-5 (0-5) /hpf Ur Epithelial Cells Not seen (0-5) /hpf Urine Bacteria Rare (FEW) /hpf Urine Mucus Not seen (FEW) /hpf 07/11/17 07/11/17 Range/Units 22:05 22:05 WBC (4.23-9.07) K/mm3 RBC (4.63-6.08) M/mm3 Hgb (13.7-17.5) gm/L Hct (40.1-51.0) % MCV (79.0-92.2) fl MCH (25.7-32.2) pg MCHC (32.2-35.5) g/dl RDW Std Deviation (35.1-43.9) fL Plt Count (163-337) K/mm3 MPV (9.4-12.3) fl Neutrophils % (Manual) (40-60) % Band Neutrophils % (0-10) % Lymphocytes % (Manual) (20-40) % Atypical Lymphs % % Monocytes % (Manual) (2-10) % Eosinophils % (Manual) (0.8-7.0) % Basophils % (Manual) (0.2-1.2) Platelet Estimate Plt Morphology Comment RBC Morph Comment PT 10.7 (8.0-13.0) SECONDS INR 0.98 APTT 19 L (22-36) SECONDS Sodium (136-145) mEq/L Potassium (3.5-5.1) mEq/L Chloride (98-107) mEq/L Carbon Dioxide (21-32) mEq/L Anion Gap (5-15) BUN (7-18) mg/dL Creatinine (0.7-1.3) mg/dL Est Cr Clr Drug Dosing mL/min Estimated GFR (MDRD) (>60) mL/min BUN/Creatinine Ratio (14-18) Glucose (74-106) mg/dL Calcium (8.5-10.1) mg/dL Total Bilirubin (0.2-1.0) mg/dL AST (15-37) U/L ALT (16-63) U/L Alkaline Phosphatase (46-116) U/L C-Reactive Protein (<1.0) mg/dL Total Protein (6.4-8.2) g/dl Albumin (3.4-5.0) g/dl Globulin gm/dL Albumin/Globulin Ratio (1-2) Prostate Specific Ag 11.7 H (0.1-4.0) ng/mL Urine Color (Yellow) Urine Appearance (Clear) Urine pH (5.0-8.0) Ur Specific [place] (1.005-1.030) Urine Protein (Negative) Urine Glucose (UA) (Negative) Urine Ketones (Negative) Urine Occult Blood (Negative) Urine Nitrite (Negative) Urine Bilirubin (Negative) Urine Urobilinogen (0.2-1.0) Ur Leukocyte Esterase (Negative) Urine RBC (0-5) /hpf Urine WBC (0-5) /hpf Ur Epithelial Cells (0-5) /hpf Urine Bacteria (FEW) /hpf Urine Mucus (FEW) /hpf Meds: Medications Generic Name Dose Route Start Last Admin Trade Name Freq PRN Reason Stop Dose Admin Sodium Chloride 1,000 mls @ 200 mls/hr 07/11/17 23:07 07/11/17 23:19 Normal Saline IV 07/12/17 04:06 200 mls/hr ONETIME ONE Administration Sodium Chloride 10 ml 07/11/17 22:09 07/11/17 22:21 Saline Flush FLUSH 10 ml ASDIRECTED PRN Administration Keep Vein Open Discontinued Medications Generic Name Dose Route Start Last Admin Trade Name Dora PRN Reason Stop Dose Admin Levofloxacin/Dextrose 500 mg/ 100 mls @ 100 mls/hr 07/11/17 22:11 07/11/17 22 :21 Premix IV 07/11/17 23:10 100 mls/hr ONETIME ONE Administration Lidocaine HCl Confirm 07/11/17 22:50 Xylocaine 2% Jelly Administered 07/11/17 22:51 Dose 10 ml .ROUTE .[facility] ONE - Radiology Interpretation Free Text/Narrative:: 62-year-old male presents to the ED with history of gross hematuria for better than a month or more. He's had previous prostate surgery for cancer about a year ago. His PSA values apparently have stayed within the normal range. He did have chemotherapy and radiotherapy to the prostatic fossa postoperatively. The source of bleeding is not been sorted out by urology. Questioning whether it's coming from his urinary bladder or urethra. Bleeding is daily and often contains clot suggesting lower urinary tract involvement. He comes tonight because of burning dysuria and a component of frequency suggesting that he may have thickened infection as well. He has a strong sense that he doesn't empty his bladder completely. Plan urinalysis. We'll have a post residual bladder scan done as well. Will need urology follow-up with cystoscopy to sort out the source of his continuous bleeding per urethra. - Re-Assessments/Exams Free Text/Narrative Re-Assessment/Exam: 07/11/17 20:43 Was able to void 20 mils of obviously very bloody urine. Bladder scan reveals 120 mils of urine within the bladder indicating moderate retention. Since he has no prostate this is most likely neurogenic in origin. He has had previous L-spine surgery in December of this year. He is also on oxybutynin for bladder spasms. This may be contributing to bladder dysfunction and incomplete emptying. He's also had radiation to the prostatic fossa and bladder after surgery on his prostate. The source of bleeding which is been going on for a couple of months needs to be at identified and carefully cauterized. He indicates that his PSA values apparently have been normal. Urology consult will be indicated. I will await the urinalysis to see if there is an infective process involved by history the burning with voiding suggest an infective process. 07/11/17 21:45: Urine shows too numerous to count red blood cells and 0-5 WBCs with trace leukocyte esterase. His dysuria suggest there is an infective component. He has the urge to void but is unable to do so. That his past is dark blood. Will therefore place a 3-way Andino catheter for boot irrigation. He is going to need cystoscopy to identify source of bleeding and therefore he wishes to be transferred to [facility] in [place]. I will give him a dose of Levaquin 500 mg IV until we see the results of urine culture. Labs will be done as well. I will make arrangements for transfer. 07/11/17 22:55 nurses report unable to get a large 3-way Andino catheter into the bladder because of a urethral stricture approximately 2 cm into the penis. 18-gauge Andino catheter placed in irrigation done the old-fashioned way with in and out saline.Labs are back. White count is 9.18 with differential pending. Hemoglobin is 12.1 with hematocrit of 35.6. Platelets are normal at 303,000. PT is 10.7 INR 0.98 PTT is 19 oh within normal limits. Serum sodium is 136 potassium 3.9. Chloride 98 bicarbonate 27. Anion gap normal at 14.9. BUN is 15 creatinine is 1.0. EGFR is greater than 60. Glucose is 251. Calcium 8.8 bili 0.4 AST 38. ALT 33. Alkaline phosphatase mildly elevated at 191. This is somewhat concerning for possible metastatic bone disease. C-reactive protein is elevated at 4.5. Total protein is normal at 6.6 albumin fraction slightly low at 3.0. The urine was 3+ protein 3+ occult blood trace leukocyte esterase and too numerous to count red cells urine WBCs 0-5. Rare bacteria mentioned. Culture ordered. 07/11/17 23:[address] Stephens--hospitalist at [facility] in [facility] and he has accepted care. Patient to be transported per ground ambulance. [address] Departure - Departure Time of Disposition: 23:26 Disposition: DC/Tfer to Acute Hospital 02 Condition: Fair Clinical Impression: Gross hematuria, Urinary retention with incomplete bladder emptying, Dysuria- frequency syndrome, Prostate cancer Uncontrolled type 2 diabetes mellitus Qualifiers: Diabetes mellitus complication status: with neurologic complications - Discharge Information Referrals: Charu Quintana, HEADRIG SAWYER [Primary Care Provider] - Forms: ED Department Discharge Additional Instructions: Patient transferred to [facility] in [facility] for urology consultation. He has been seen by Dr. Carmen and Dr Patel in the past. Dr Tipton did his prostatectomy. It is the patient's understanding that his PSA values have been normal postop. Currently receiving intravesical chemotherapy Rimso-50. Transferred due to severe hemorrhagic cystitis with dysuria and mild urinary retention. Potential multifactorial etiology of gross hematuria. - My Orders Last 24 Hours: My Active Orders 07/11/17 19:53 Bladder Scan [RC] ONETIME 07/11/17 20:30 CULTURE URINE [RM] Stat 07/11/17 22:09 Peripheral IV Care [RC] . DIRECTED Urinary Catheter Assessment [RC] ASDIRECTED Sodium Chloride 0.9% [Saline Flush] 10 ml FLUSH ASDIRECTED PRN Peripheral IV Insertion Adult [OM.PC] Stat 07/11/17 22:15 Andino Catheter Insertion [Insert Urinary Catheter] [OM.PC] Q24H 07/11/17 23:07 Sodium Chloride 0.9% [Normal Saline] 1,000 ml IV ONETIME - Assessment/Plan Last 24 Hours: My Active Orders 07/11/17 19:53 Bladder Scan [RC] ONETIME 07/11/17 20:30 CULTURE URINE [RM] Stat 07/11/17 22:09 Peripheral IV Care [RC] . DIRECTED Urinary Catheter Assessment [RC] ASDIRECTED Sodium Chloride 0.9% [Saline Flush] 10 ml FLUSH ASDIRECTED PRN Peripheral IV Insertion Adult [OM.PC] Stat 07/11/17 22:15 Andino Catheter Insertion [Insert Urinary Catheter] [OM.PC] Q24H 07/11/17 23:07 Sodium Chloride 0.9% [Normal Saline] 1,000 ml IV ONETIME
[2017-07-11] MEDS ORDERED: Sodium Chloride 0.9% 10 ML Syringe FLUSH PRN (22:09)
[2017-07-11] MEDS ORDERED: Levofloxacin/Dextrose 5%-Water 500 MG in Premix Bag 1 BAG IV ONE (22:11)
[2017-07-11] MEDS ORDERED: Lidocaine 2% Jelly 10 ML Urojet ONE (22:50)
[2017-07-11] MEDS ORDERED: Sodium Chloride 0.9% 1,000 ML IV ONE (23:07)
[2017-07-11] MEDS ORDERED: Lidocaine 2% Jelly 10 ML Urojet MUCMEM ONE (23:41)
== END 2017-07-11 23:35 ==
LOC: JD.ED 19:17
DX: N39.8 Other specified disorders of urinary system (principal); R31.0 Gross hematuria; C61 Malignant neoplasm of prostate; I10 Essential (primary) hypertension; K21.9 Gastro-esophageal reflux disease without esophagitis; E11.49 Type 2 diabetes mellitus with other diabetic neurological complication; Z87.820 Personal history of traumatic brain injury; Z79.899 Other long term (current) drug therapy; Z79.84 Long term (current) use of oral hypoglycemic drugs; Z90.79 Acquired absence of other genital organ(s)
CPT/HCPCS: 36415; 51700; 80053; 81001; 84153; 85025; 85610; 85730; 86140; 87086; 96365; 99284; J1956; J7040; J7050; 51702; 99285

== ENCOUNTER 2017-07-18 01:35 | Emergency (ER) | payer MEDICARE, OTHER, MEDICAID ==
[2017-07-18] MEDS ORDERED: Lactated Ringers 500 ML IV ONE (03:25)
[2017-07-18] MEDS ORDERED: Lactated Ringers 1,000 ML IV SCH (03:30)
[2017-07-18 04:06] VITALS: BP 154/78
--- NOTE | 2017-07-18 04:20 | EDM.PDOC ---
<Allen Mosqueda - Last Filed: 07/18/17 05:11> ED HPI GENERAL MEDICAL PROBLEM - General Chief Complaint: Genitourinary Problem Stated Complaint: [facility] Time Seen by Provider: 07/18/17 01:40 - History of Present Illness INITIAL COMMENTS - FREE TEXT/NARRATIVE: 62-year-old male presents emergency room brought in by EMS with frequency with urination hematuria low back pain. He also complains of arm pain. The patient was recently discharged from the hospital 2 days ago now. The patient was at [facility] in [place] for significant hematuria. This seems to be much better. The patient's last significant burning and frequency and back pain he ambulates with a walker and has developed some arm discomfort associated with this. Patient has dizziness this is a long standing problem does not seem to be getting better he's been seen by audiology for this. Patient denies any chest pain chest pressure breathing difficulties however he does have a little bit of a cough this is a long-standing ongoing cough mostly nonproductive. We have some old records from [facility] and his most recent admission he is currently taking Levaquin. Left Lower Arm Pain Score (Numeric/FACES): 12 - Related Data Allergies Allergy/AdvReac Type Severity Reaction Status Date / Time No Known Allergies Allergy Verified 07/18/17 01:48 Home Meds: Home Meds Allopurinol [Zyloprim] 150 mg PO MOWEFR 08/17/15 [History] Lisinopril 20 mg PO DAILY 08/17/15 [History] Oxybutynin 5 mg PO BID PRN MDD overactive bladder 08/17/15 [History] metFORMIN [Glucophage] 1,000 mg PO BID 08/17/15 [History] Ascorbate Calcium [Vitamin C] 500 mg PO BID 01/04/17 [History] Aspirin [Adult Low Dose Aspirin EC] 81 mg PO DAILY 01/04/17 [History] Calcium Carbonate/Vitamin D3 [Calcium 500-Vit D3 200 Caplet] 1 tab PO BID [History] Diazepam [Valium] 5 mg PO QID PRN 01/04/17 [History] Ferrous Sulfate 325 mg PO BID 01/04/17 [History] Hydrocodone/Acetaminophen [[place] 5-325] 1 - 2 tab PO Q4H PRN 01/04/17 [History] Indomethacin [Indocin] 25 mg PO DAILY PRN 01/04/17 [History] Leuprolide [Lupron Depot 4-Month] 30 mg SQ ASDIRECTED 01/04/17 [History] Metoprolol Succinate 100 mg PO DAILY 01/04/17 [History] Nicotine [Habitrol] 14 mg TRDERM DAILY 01/04/17 [History] Polyethylene Glycol 3350 [MiraLAX] 17 gm PO DAILY 01/04/17 [History] Sennosides/Docusate Sodium [Senna-Docusate Sodium] 1 tab PO BID 01/04/17 [ History] amLODIPine [Norvasc] 5 mg PO DAILY 01/04/17 [History] cloNIDine [Catapres] 0.1 mg PO DAILY 01/04/17 [History] Levofloxacin [Levaquin] 500 mg PO DAILY #14 tablet 01/05/17 [Rx] Phenazopyridine HCl [Pyridium] 200 mg PO Q8H #6 tablet 07/18/17 [Rx] Past Medical History HEENT History: Reports: Impaired Vision Cardiovascular History: Reports: Hypertension Gastrointestinal History: Reports: GERD Genitourinary History: Reports: Other (See Below) Other Genitourinary History: prostate cancer Musculoskeletal History: Reports: Back Pain, Chronic, Fracture Neurological History: Reports: Brain Injury, Head Trauma Psychiatric History: Reports: None Endocrine/Metabolic History: Reports: Diabetes, Type II Hematologic History: Reports: None Immunologic History: Reports: None Oncologic (Cancer) History: Reports: Prostate Dermatologic History: Reports: None - Infectious Disease History Infectious Disease History: Reports: None - Past Surgical History Cardiovascular Surgical History: Reports: None Respiratory Surgical History: Reports: None GI Surgical History: Reports: Colonoscopy Male Surgical History: Reports: TURP-Transurethral Resection of Prostate Neurological Surgical History: Reports: Lumbar Spine Other Neurological Surgeries/Procedures: 12/2016 lumbar spine surgery Musculoskeletal Surgical History: Reports: Knee Replacement, Other (See Below) Other Musculoskeletal Surgeries/Procedures:: bilateral knee replacements Social & Family History - Family History Family Medical History: Unobtainable - Tobacco Use Smoking Status *Q: Current Every Day Smoker Years of Tobacco use: 45 Packs/Tins Daily: 0.2 Used Tobacco, but Quit: No Second Hand Smoke Exposure: No - Caffeine Use Caffeine Use: Reports: Coffee, Soda - Alcohol Use Days Per Week of Alcohol Use: 4 Number of Drinks Per Day: 3 Total Drinks Per Week: 12 - Recreational Drug Use Recreational Drug Use: No - Living Situation & Occupation Living situation: Reports: Single Occupation: Disabled ED ROS GENERAL - Review of Systems Review Of Systems: See Below Constitutional: Reports: No Symptoms. Denies: Fever, Chills HEENT: Reports: No Symptoms Respiratory: Reports: Cough. Denies: Shortness of Breath, Sputum, Hemoptysis Cardiovascular: Reports: No Symptoms. Denies: Chest Pain, Palpitations Endocrine: Reports: No Symptoms GI/Abdominal: Reports: No Symptoms : Reports: Dysuria, Frequency, Hematuria, Urgency. Denies: Flank Pain Neurological: Reports: No Symptoms Immunologic: Reports: No Symptoms Course - Vital Signs Last Recorded V/S: Last Vital Signs Temp 35.9 C 07/18/17 04:06 Pulse 108 H 07/18/17 04:06 Resp 18 07/18/17 04:06 BP 154/78 H 07/18/17 04:06 Pulse Ox 96 07/18/17 04:06 - Orders/Labs/Meds Labs: Laboratory Tests 07/18/17 07/18/17 07/18/17 Range/Units 02:10 02:10 02:10 WBC 9.48 H (4.23-9.07) K/mm3 RBC 3.30 L (4.63-6.08) M/mm3 Hgb 10.6 L (13.7-17.5) gm/L Hct 32.1 L (40.1-51.0) % MCV 97.3 H (79.0-92.2) fl MCH 32.1 (25.7-32.2) pg MCHC 33.0 (32.2-35.5) g/dl RDW Std Deviation 43.3 (35.1-43.9) fL Plt Count 446 H (163-337) K/mm3 MPV 9.6 (9.4-12.3) fl Neutrophils % (Manual) 86 H (40-60) % Band Neutrophils % 0 (0-10) % Lymphocytes % (Manual) 5 L (20-40) % Atypical Lymphs % 2 % Monocytes % (Manual) 6 (2-10) % Eosinophils % (Manual) 1 (0.8-7.0) % Basophils % (Manual) 0 L (0.2-1.2) Platelet Estimate Increased Plt Morphology Comment Normal RBC Morph Comment Normal PT 10.9 (8.0-13.0) SECONDS INR 1.00 APTT 31 (22-36) SECONDS Sodium 136 (136-145) mEq/L Potassium 3.6 (3.5-5.1) mEq/L Chloride 98 (98-107) mEq/L Carbon Dioxide 26 (21-32) mEq/L Anion Gap 15.6 H (5-15) BUN 8 (7-18) mg/dL Creatinine 0.8 (0.7-1.3) mg/dL Est Cr Clr Drug Dosing 79.03 mL/min Estimated GFR (MDRD) > 60 (>60) mL/min BUN/Creatinine Ratio 10.0 L (14-18) Glucose 199 H (74-106) mg/dL Lactic Acid (0.4-2.0) mmol/L Calcium 9.4 (8.5-10.1) mg/dL Total Bilirubin 0.3 (0.2-1.0) mg/dL AST 30 (15-37) U/L ALT 36 (16-63) U/L Alkaline Phosphatase 234 H (46-116) U/L C-Reactive Protein 18.0 H* (<1.0) mg/dL Total Protein 7.1 (6.4-8.2) g/dl Albumin 2.6 L (3.4-5.0) g/dl Globulin 4.5 gm/dL Albumin/Globulin Ratio 0.6 L (1-2) Urine Color (Yellow) Urine Appearance (Clear) Urine pH (5.0-8.0) Ur Specific [place] (1.005-1.030) Urine Protein (Negative) Urine Glucose (UA) (Negative) Urine Ketones (Negative) Urine Occult Blood (Negative) Urine Nitrite (Negative) Urine Bilirubin (Negative) Urine Urobilinogen (0.2-1.0) Ur Leukocyte Esterase (Negative) Urine RBC (0-5) /hpf Urine WBC (0-5) /hpf Ur Epithelial Cells (0-5) /hpf Urine Bacteria (FEW) /hpf Hyaline Casts (0-5) /lpf Urine Mucus (FEW) /hpf 07/18/17 07/18/17 Range/Units 02:10 02:25 WBC (4.23-9.07) K/mm3 RBC (4.63-6.08) M/mm3 Hgb (13.7-17.5) gm/L Hct (40.1-51.0) % MCV (79.0-92.2) fl MCH (25.7-32.2) pg MCHC (32.2-35.5) g/dl RDW Std Deviation (35.1-43.9) fL Plt Count (163-337) K/mm3 MPV (9.4-12.3) fl Neutrophils % (Manual) (40-60) % Band Neutrophils % (0-10) % Lymphocytes % (Manual) (20-40) % Atypical Lymphs % % Monocytes % (Manual) (2-10) % Eosinophils % (Manual) (0.8-7.0) % Basophils % (Manual) (0.2-1.2) Platelet Estimate Plt Morphology Comment RBC Morph Comment PT (8.0-13.0) SECONDS INR APTT (22-36) SECONDS Sodium (136-145) mEq/L Potassium (3.5-5.1) mEq/L Chloride (98-107) mEq/L Carbon Dioxide (21-32) mEq/L Anion Gap (5-15) BUN (7-18) mg/dL Creatinine (0.7-1.3) mg/dL Est Cr Clr Drug Dosing mL/min Estimated GFR (MDRD) (>60) mL/min BUN/Creatinine Ratio (14-18) Glucose (74-106) mg/dL Lactic Acid 2.0 (0.4-2.0) mmol/L Calcium (8.5-10.1) mg/dL Total Bilirubin (0.2-1.0) mg/dL AST (15-37) U/L ALT (16-63) U/L Alkaline Phosphatase (46-116) U/L C-Reactive Protein (<1.0) mg/dL Total Protein (6.4-8.2) g/dl Albumin (3.4-5.0) g/dl Globulin gm/dL Albumin/Globulin Ratio (1-2) Urine Color Katerina H (Yellow) Urine Appearance Slt cloudy H (Clear) Urine pH 6.0 (5.0-8.0) Ur Specific [place] > or = 1.030 (1.005-1.030) Urine Protein 3+ H (Negative) Urine Glucose (UA) Negative (Negative) Urine Ketones Trace H (Negative) Urine Occult Blood 3+ H (Negative) Urine Nitrite Negative (Negative) Urine Bilirubin Negative (Negative) Urine Urobilinogen 0.2 (0.2-1.0) Ur Leukocyte Esterase Negative (Negative) Urine RBC >100 H (0-5) /hpf Urine WBC 10-20 H (0-5) /hpf Ur Epithelial Cells 0-5 (0-5) /hpf Urine Bacteria Rare (FEW) /hpf Hyaline Casts 0-5 (0-5) /lpf Urine Mucus Many H (FEW) /hpf Meds: Medications Discontinued Medications Generic Name Dose Route Start Last Admin Trade Name Sarathq PRN Reason Stop Dose Admin Lactated Ringer's 500 mls @ 999 mls/hr 07/18/17 03:25 07/18/17 03:29 Ringers, Lactated IV 07/18/17 03:55 999 mls/hr .BOLUS ONE Administration Lactated Ringer's 1,000 mls @ 125 mls/hr 07/18/17 03:30 Ringers, Lactated IV ASDIRECTED [facility] Phenazopyridine HCl 190 mg 07/18/17 04:45 07/18/17 04:45 Urinary Pain Relief PO 190 mg TIDPC MEL Administration - Re-Assessments/Exams Free Text/Narrative Re-Assessment/Exam: 07/18/17 04:47 Chest x-rays unrevealing for any acute changes he might have some mild atelectasis is basis. Case discussed with Dr. Crisostomo, the patient's urologist who thinks the patient ultimately needs to have a bladder resection entirely. In the meantime we'll start the patient on Pyridium the patient is to follow-up with his urologist on . The patient received 500 mL bolus here his pulse went from 121-99. Also of note is when he voided after this his urine was much clear we did discuss with the patient the importance of staying well hydrated. At this point we are trying to figure out a way to get him home EMS brought him in he did not bring his walker and he is walker dependent because of his bad knees. Departure - Departure Time of Disposition: 04:49 Disposition: Home, Self-Care 01 Clinical Impression: Dysuria, Arm pain, Low back pain, Hematuria - Discharge Information Prescriptions: Phenazopyridine HCl [Pyridium] 200 mg PO Q8H #6 tablet Instructions: Dysuria, Back Pain, Adult, [id number] Referrals: Charu Quintana, [facility] [Primary Care Provider] - Forms: ED Department Discharge Additional Instructions: Return to the emergency room with any questions problems worsening symptoms. He been started on Pyridium take 200 mg 3 times a day. On when you visit your urologist discuss perhaps taking this longer. You are taking Levaquin this is an antibiotic continue this. A urine culture has been set up on your urine in case the Levaquin is not covering it. <Tito Orellana - Last Filed: 07/20/17 17:44> ED ROS GENERAL - Review of Systems Review Of Systems: See Below ED EXAM, GENERAL - Physical Exam Exam: See Below Departure - Departure Time of Disposition: 08:00
[2017-07-18] MEDS ORDERED: Phenazopyridine 95 MG Tab PO SCH (04:45)
--- NOTE | 2017-07-18 14:47 | CR ---
Chest: Two views of the chest were obtained. Comparison: Previous chest x-ray of 08/11/16. Heart size and mediastinum are within normal limits. Lungs are clear. Previous lumbar spine surgery is noted. Mild degenerative change is seen within the spine. Impression: 1. Nothing acute is seen on two-view chest x-ray. No significant change is seen from prior study. Diagnostic code #1
== END 2017-07-18 08:10 | disposition home or self-care (01) ==
LOC: JD.ED 01:35
DX: R31.9 Hematuria, unspecified (principal); R30.0 Dysuria; M54.5 Low back pain; M79.602 Pain in left arm; E11.9 Type 2 diabetes mellitus without complications; I10 Essential (primary) hypertension; K21.9 Gastro-esophageal reflux disease without esophagitis; F17.210 Nicotine dependence, cigarettes, uncomplicated; Z79.82 Long term (current) use of aspirin; Z79.84 Long term (current) use of oral hypoglycemic drugs; Z79.2 Long term (current) use of antibiotics; Z79.899 Other long term (current) drug therapy
CPT/HCPCS: 36415; 51798; 71020; 80053; 81001; 83605; 85025; 85610; 85730; 86140; 87040; 87086; 93005; 99285; A9270; J7120; 99283

== ENCOUNTER 2017-07-24 23:55 | Emergency (ER) | payer MEDICARE, OTHER, MEDICAID ==
--- NOTE | 2017-07-25 01:00 | EDM.PDOC ---
<García Cochran - Last Filed: 07/25/17 14:51> ED HPI GENERAL MEDICAL PROBLEM - General Chief Complaint: Genitourinary Problem Stated Complaint: [facility] Time Seen by Provider: 07/25/17 00:50 - Related Data Allergies Allergy/AdvReac Type Severity Reaction Status Date / Time No Known Allergies Allergy Verified 07/29/17 00:51 Home Meds: Home Meds Allopurinol [Zyloprim] 150 mg PO MOWEFR 08/17/15 [History] Oxybutynin 5 mg PO BID PRN MDD overactive bladder 08/17/15 [History] metFORMIN [Glucophage] 1,000 mg PO BID 08/17/15 [History] Ascorbate Calcium [Vitamin C] 500 mg PO BID 01/04/17 [History] Aspirin [Adult Low Dose Aspirin EC] 81 mg PO DAILY 01/04/17 [History] Calcium Carbonate/Vitamin D3 [Calcium 500-Vit D3 200 Caplet] 1 tab PO BID [History] Ferrous Sulfate 325 mg PO BID 01/04/17 [History] Polyethylene Glycol 3350 [MiraLAX] 17 gm PO DAILY 01/04/17 [History] Sennosides/Docusate Sodium [Senna-Docusate Sodium] 1 tab PO BID 01/04/17 [ History] amLODIPine [Norvasc] 5 mg PO DAILY 01/04/17 [History] cloNIDine [Catapres] 0.1 mg TOP DAILY 01/04/17 [History] Phenazopyridine HCl [Pyridium] 200 mg PO Q8H #6 tablet 07/18/17 [Rx] Benzonatate 200 mg PO TID PRN 07/28/17 [History] Cyclobenzaprine [Flexeril] 5 mg PO TID 07/28/17 [History] Losartan [Cozaar] 50 mg PO DAILY 07/28/17 [History] Metoprolol Succinate [Toprol XL] 100 mg PO DAILY 07/28/17 [History] Mirtazapine 15 mg PO BEDTIME 07/28/17 [History] Tamsulosin [Flomax] 0.4 mg PO DAILY 07/28/17 [History] Ferrous Sulfate 1 mg PO DAILY 07/29/17 [History] Indomethacin [Indocin] 25 mg PO DAILY PRN 07/29/17 [History] Nicotine [Nicoderm CQ] 1 TRDERM DAILY 07/29/17 [History] Non-Formulary Medication [NF Drug] 07/29/17 [History] Triamcinolone Acetonide [Kenalog-40] 40 mg INJECT ONETIME 07/29/17 [History] Course - Vital Signs Last Recorded V/S: Last Vital Signs Temp 36.4 C 07/25/17 15:19 Pulse 86 07/25/17 15:19 Resp 18 07/25/17 15:19 BP 128/75 07/25/17 15:19 Pulse Ox 99 07/25/17 15:19 - Orders/Labs/Meds Labs: Laboratory Tests 07/25/17 07/25/17 07/25/17 Range/Units 07:20 07:30 07:30 WBC 8.46 (4.23-9.07) K/mm3 RBC 3.01 L (4.63-6.08) M/mm3 Hgb 9.6 L (13.7-17.5) gm/L Hct 29.5 L (40.1-51.0) % MCV 98.0 H (79.0-92.2) fl MCH 31.9 (25.7-32.2) pg MCHC 32.5 (32.2-35.5) g/dl RDW Std Deviation 44.2 H (35.1-43.9) fL Plt Count 454 H (163-337) K/mm3 MPV 8.9 L (9.4-12.3) fl Neutrophils % (Manual) 75 H (40-60) % Band Neutrophils % 1 (0-10) % Lymphocytes % (Manual) 14 L (20-40) % Atypical Lymphs % 0 % Monocytes % (Manual) 5 (2-10) % Eosinophils % (Manual) 5 (0.8-7.0) % Basophils % (Manual) 0 L (0.2-1.2) Platelet Estimate See note Polychromasia 1+ slight Anisocytosis 1+ slight RBC Morph Comment Not Reportable Sodium 138 (136-145) mEq/L Potassium 3.8 (3.5-5.1) mEq/L Chloride 101 (98-107) mEq/L Carbon Dioxide 28 (21-32) mEq/L Anion Gap 12.8 (5-15) BUN 10 (7-18) mg/dL Creatinine 0.7 (0.7-1.3) mg/dL Est Cr Clr Drug Dosing 134.13 mL/min Estimated GFR (MDRD) > 60 (>60) mL/min BUN/Creatinine Ratio 14.3 (14-18) Glucose 140 H (74-106) mg/dL Calcium 8.6 (8.5-10.1) mg/dL Total Bilirubin 0.3 (0.2-1.0) mg/dL AST 19 (15-37) U/L ALT 18 (16-63) U/L Alkaline Phosphatase 205 H (46-116) U/L C-Reactive Protein 10.3 H* (<1.0) mg/dL Total Protein 6.6 (6.4-8.2) g/dl Albumin 2.6 L (3.4-5.0) g/dl Globulin 4.0 gm/dL Albumin/Globulin Ratio 0.7 L (1-2) Urine Color Red H (Yellow) Urine Appearance Turbid H (Clear) Urine pH 6.0 (5.0-8.0) Ur Specific [place] 1.010 (1.005-1.030) Urine Protein 3+ H (Negative) Urine Glucose (UA) Negative (Negative) Urine Ketones Trace H (Negative) Urine Occult Blood 3+ H (Negative) Urine Nitrite Positive H (Negative) Urine Bilirubin 2+ H (Negative) Urine Urobilinogen 1.0 (0.2-1.0) Ur Leukocyte Esterase 3+ H (Negative) Urine RBC Too numerous to cnt H (0-5) /hpf Urine WBC 10-20 H (0-5) /hpf Ur Epithelial Cells Not seen (0-5) /hpf Urine Bacteria Not seen (FEW) /hpf Urine Mucus Not seen (FEW) /hpf Meds: Medications Discontinued Medications Generic Name Dose Route Start Last Admin Trade Name Freq PRN Reason Stop Dose Admin Clonazepam 2 mg 07/25/17 02:55 07/25/17 03:23 Klonopin PO 07/25/17 02:56 2 mg ONETIME ONE Administration Oxycodone/Acetaminophen 2 tab 07/25/17 02:08 07/25/17 02:12 Percocet 325-5 Mg PO 07/25/17 02:09 2 tab ONETIME ONE Administration Oxycodone/Acetaminophen 2 tab 07/25/17 12:01 07/25/17 12:56 Percocet 325-5 Mg PO 07/25/17 12:02 2 tab ONETIME ONE Administration Sodium Chloride 10 ml 07/25/17 14:47 07/25/17 15:25 Saline Flush FLUSH 10 ml ASDIRECTED PRN Administration Keep Vein Open - Re-Assessments/Exams Free Text/Narrative Re-Assessment/Exam: 07/25/17 14:52 I took over for Dr Orellana. Dr Orellana did order some labs. His Hgb was low at 9.6. Last week he was 10.6. His glucose was 140. His alk phos was elevated at 205. His CRP was elevated at 10.3. His UA shows a UTI. His is on levaquin. I will order a culture. The patient is still having bleeding. Dr Orellana tried to get him transferred to [facility] early this morning but they would not accept him. They advised he go to [facility]. His primary care provider Charu Quintana is trying to set that up. The patient has been having bleeding after radiation in May for prostate cancer. He was transferred to [facility] for this a couple of times. He is still having bleeding so I called [facility] again and they still would not take him. They recommended he go to [facility]. I called Charu Quintana and she is trying to set that up. I called [facility] and talked with Dr Carpenter the urologist video presentation operator and he would not accept the patient something emergently needed to be done at [facility] in [place] and then have the urologist call him and then they will talk about transferring. I called back to [facility] in [place] and they still would not accept him. The patient continued to bleed and had some clots that needed to be irrigated. He has more bladder spasms and I ordered some more percocet. That helped last night. I called [facility] in [place] and Dr Choi agreed to see the patient. He is the urologist video presentation operator. I also talked with my hospitalist here and she did not feel comfortable taking care of him here for the night. Dr Choi said to transfer him in the morning because he is not going to do any procedure until tomorrow. I called [facility] back and Dr Huerta the hospitalist accepted the patient. He will be going by ambulance. Departure - Departure Time of Disposition: 15:05 Disposition: DC/Tfer to Acute Hospital 02 Condition: Fair Clinical Impression: UTI, Urinary tract infectious disease, Prostate cancer Hematuria Qualifiers: Hematuria type: gross Qualified Code(s): R31.0 - Gross hematuria Problem with Sierra catheter Qualifiers: Encounter type: initial encounter Qualified Code(s): T83.9XXA - Unspecified complication of genitourinary prosthetic device, implant and graft, initial encounter Anemia Qualifiers: Anemia type: unspecified type Qualified Code(s): D64.9 - Anemia, unspecified - Discharge Information Referrals: Charu Quintana NP [Primary Care Provider] - Forms: ED Department Discharge <Tito Orellana - Last Filed: 07/31/17 07:07> ED HPI GENERAL MEDICAL PROBLEM - General Source of Information: Reports: Patient History Limitations: Reports: No Limitations - History of Present Illness INITIAL COMMENTS - FREE TEXT/NARRATIVE: 62-year-old male attends the ED due to bladder spasms expelling blood around his Sierra catheter site. He did soaking his underwear. 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 Said persistent intermittent bleeding per urethra for several weeks now. But now Berry on several occasions to have his bladder irrigated of clots. 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 This was apparently dilated and a three-way Sierra catheter is currently in place. He presented to the ED yesterday and had bladder irrigation performed and felt improved and was discharged home. He states tonight once again is experiencing severe spasms and urine bag is complaining is completely full of dark bloody urine. When he sat up blood shot out of the penis around the Sierra catheter about 18 inches up onto his abdomen and onto the sheets. Onset: Other (Chronic problem intermittent occlusion of catheter due to persistent bleeding from bladder wall.) Duration: Week(s): Location: Reports: Abdomen (Suprapubic pressure discomfort) Quality: Reports: Ache, Pressure Severity: Moderate (Intermittent severe bladder spasms.) Improves with: Reports: None Worsens with: Reports: None Context: Reports: Other (Has said history of prostate cancer treated with primary high beam radiation which we believed caused radiation-induced cystitis which is causing chronic bleeding per urethra.). Denies: Activity, Exercise, Lifting, Sick Contact, Trauma Treatments ICE GUARD SKATING RINK: Reports: Other (see below) (Takes oxybutynin 5 mg twice a day when necessary for bladder spasms.) Past Medical History HEENT History: Reports: Impaired Vision Cardiovascular History: Reports: Hypertension Gastrointestinal History: Reports: GERD Genitourinary History: Reports: Other (See Below) Other Genitourinary History: prostate cancer Musculoskeletal History: Reports: Back Pain, Chronic, Fracture, Gout Neurological History: Reports: Brain Injury Psychiatric History: Reports: None Endocrine/Metabolic History: Reports: Diabetes, Type II Hematologic History: Reports: None Immunologic History: Reports: None Oncologic (Cancer) History: Reports: Prostate Dermatologic History: Reports: None - Infectious Disease History Infectious Disease History: Reports: None - Past Surgical History Respiratory Surgical History: Reports: None GI Surgical History: Reports: Colonoscopy Male Surgical History: Reports: TURP-Transurethral Resection of Prostate Neurological Surgical History: Reports: Lumbar Spine Musculoskeletal Surgical History: Reports: Knee Replacement, ORIF, Other (See Below) Social & Family History - Family History Family Medical History: Unobtainable - Tobacco Use Smoking Status *Q: Never Smoker Years of Tobacco use: 45 Packs/Tins Daily: 0.2 Used Tobacco, but Quit: No Second Hand Smoke Exposure: No - Caffeine Use Caffeine Use: Reports: Coffee - Alcohol Use Days Per Week of Alcohol Use: 4 Number of Drinks Per Day: 3 Total Drinks Per Week: 12 - Recreational Drug Use Recreational Drug Use: No - Living Situation & Occupation Living situation: Reports: , Alone Occupation: Unemployed ED [facility] - Review of Systems Review Of Systems: See Below Constitutional: Reports: Malaise, Weakness, Fatigue, Other (Sleep is often interrupted due to the bladder spasms. Feels he didn't sleep at all last night.) . Denies: Fever, Chills, Weight Loss HEENT: Reports: No Symptoms Respiratory: Reports: No Symptoms Cardiovascular: Reports: Blood Pressure Problem, Other (Currently has a mild cough and dry throat.) Endocrine: Reports: Fatigue (Controlled with medications) GI/Abdominal: Reports: Abdominal Pain (Intermittent suprapubic abdominal pain due to bladder spasms.), Decreased Appetite : Reports: Hematuria (. recurrence hematuria with occlusion of catheter by clot. ), Other (Currently has a 3-way Sierra catheter in place intermittent severe bladder spasms.) Musculoskeletal: Reports: Back Pain, Joint Pain (Chronically. Knees and hips.) Skin: Reports: No Symptoms Neurological: Reports: Difficulty Walking, Weakness Psychiatric: Reports: No Symptoms ED EXAM, RENAL/ - Physical Exam Exam: See Below Exam Limited By: No Limitations General Appearance: Alert, WD/WN, No Apparent Distress, Other (Color is good.) Eye Exam: Bilateral Eye: Normal Inspection (No pallor of the conjunctiva) Throat/Mouth: Normal Inspection, Normal Lips, Normal Oropharynx Head: Atraumatic, Normocephalic Neck: Normal Inspection, Supple, Non-Tender, Full Range of Motion. No: Lymphadenopathy (L), Lymphadenopathy (R) Respiratory/Chest: No Respiratory Distress, Lungs Clear, Normal Breath Sounds, Chest Non-Tender Cardiovascular: Normal Peripheral Pulses, Regular Rate, Rhythm, No Edema, No Gallop, No Murmur, Tachycardia (Resting tachycardia of 10 6/m I think due to pain response.) GI/Abdominal: Abnormal Bowel Sounds (Hypoactive bowel sounds.), Other (When I sat him up blood shot out of the penis up onto the abdomen about 18 inches. This was around the three-way Sierra catheter the abdominal wall is firm to palpation with no obvious organomegaly palpable. I believe I can palpate his urinary bladder 5 cm above the pubic symphysis. There is also tender to touch.) Back Exam: Decreased Range of Motion, Other (Previous spine surgery.) Extremities: Pedal Edema, Other (Evidence of arthritic changes in knees and hips.). No: Normal Range of Motion Neurological: Alert, Oriented (1+ bilaterally.), CN II-XII Intact, Normal Cognition. No: Normal Gait Psychiatric: Normal Affect, Anxious Skin Exam: Warm (Mildly anxious due to the persistent bleeding from his bladder. ), Dry, Intact, Normal Color, No Rash Course - Orders/Labs/Meds Labs: Laboratory Tests 07/25/17 07/25/17 07/25/17 Range/Units 07:20 07:30 07:30 WBC 8.46 (4.23-9.07) K/mm3 RBC 3.01 L (4.63-6.08) M/mm3 Hgb 9.6 L (13.7-17.5) gm/L Hct 29.5 L (40.1-51.0) % MCV 98.0 H (79.0-92.2) fl MCH 31.9 (25.7-32.2) pg MCHC 32.5 (32.2-35.5) g/dl RDW Std Deviation 44.2 H (35.1-43.9) fL Plt Count 454 H (163-337) K/mm3 MPV 8.9 L (9.4-12.3) fl Neutrophils % (Manual) 75 H (40-60) % Band Neutrophils % 1 (0-10) % Lymphocytes % (Manual) 14 L (20-40) % Atypical Lymphs % 0 % Monocytes % (Manual) 5 (2-10) % Eosinophils % (Manual) 5 (0.8-7.0) % Basophils % (Manual) 0 L (0.2-1.2) Platelet Estimate See note Polychromasia 1+ slight Anisocytosis 1+ slight RBC Morph Comment Not Reportable Sodium 138 (136-145) mEq/L Potassium 3.8 (3.5-5.1) mEq/L Chloride 101 (98-107) mEq/L Carbon Dioxide 28 (21-32) mEq/L Anion Gap 12.8 (5-15) BUN 10 (7-18) mg/dL Creatinine 0.7 (0.7-1.3) mg/dL Est Cr Clr Drug Dosing 134.13 mL/min Estimated GFR (MDRD) > 60 (>60) mL/min BUN/Creatinine Ratio 14.3 (14-18) Glucose 140 H (74-106) mg/dL Calcium 8.6 (8.5-10.1) mg/dL Total Bilirubin 0.3 (0.2-1.0) mg/dL AST 19 (15-37) U/L ALT 18 (16-63) U/L Alkaline Phosphatase 205 H (46-116) U/L C-Reactive Protein 10.3 H* (<1.0) mg/dL Total Protein 6.6 (6.4-8.2) g/dl Albumin 2.6 L (3.4-5.0) g/dl Globulin 4.0 gm/dL Albumin/Globulin Ratio 0.7 L (1-2) Urine Color Red H (Yellow) Urine Appearance Turbid H (Clear) Urine pH 6.0 (5.0-8.0) Ur Specific [place] 1.010 (1.005-1.030) Urine Protein 3+ H (Negative) Urine Glucose (UA) Negative (Negative) Urine Ketones Trace H (Negative) Urine Occult Blood 3+ H (Negative) Urine Nitrite Positive H (Negative) Urine Bilirubin 2+ H (Negative) Urine Urobilinogen 1.0 (0.2-1.0) Ur Leukocyte Esterase 3+ H (Negative) Urine RBC Too numerous to cnt H (0-5) /hpf Urine WBC 10-20 H (0-5) /hpf Ur Epithelial Cells Not seen (0-5) /hpf Urine Bacteria Not seen (FEW) /hpf Urine Mucus Not seen (FEW) /hpf Meds: Medications Discontinued Medications Generic Name Dose Route Start Last Admin Trade Name Freq PRN Reason Stop Dose Admin Clonazepam 2 mg 07/25/17 02:55 07/25/17 03:23 Klonopin PO 07/25/17 02:56 2 mg ONETIME ONE Administration Oxycodone/Acetaminophen 2 tab 07/25/17 02:08 07/25/17 02:12 Percocet 325-5 Mg PO 07/25/17 02:09 2 tab ONETIME ONE Administration Oxycodone/Acetaminophen 2 tab 07/25/17 12:01 07/25/17 12:56 Percocet 325-5 Mg PO 07/25/17 12:02 2 tab ONETIME ONE Administration Sodium Chloride 10 ml 07/25/17 14:47 07/25/17 15:25 Saline Flush FLUSH 10 ml ASDIRECTED PRN Administration Keep Vein Open - Radiology Interpretation Free Text/Narrative:: 62-year-old male presents to the ED once again with suspect occluded three-way Sierra catheter from blood clots. 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 He's had prostate cancer treated with high beam radiation over a year and a half ago. Is currently being worked up to make sure that there is no metastatic disc disease. The only treatment being offered to him would be to go to [facility] to have a total cystectomy prostatectomy and an ileo-conduit formation in order to stop the persistent bleeding from the bladder. There really is no other options for him. Tonight he feels increased bladder spasms and blood coming around the catheter particularly when he sits up or gets a spasm. The urine drainage bag does contain cranberry urine. No clots are noted in in the bag. The tubing is brownish in color near not able to visualize clots. Ultrasound performed reveals a 75-80 mils of urine in the bladder a lot of thickness of the bladder wall appreciated likely due to clot. Plan since he has a three-way Sierra catheter in place we will put up a BOOT irrigation for continuous bladder irrigation to wash out the clots as much as possible. - Re-Assessments/Exams Free Text/Narrative Re-Assessment/Exam: 07/25/17 02:09 patient is having increased pain since bladder irrigation has been performed. Is requesting analgesia. Given 2 Percocet 5/25 milligram tablets by mouth. 07/25/17 02:56 first 3 L of irrigation of been completed and urine remains fairly bloody. Also having a second liter to run a little bit slower. No clots came out but obviously the catheter is functioning now. Getting quite a bit of bladder spasms. Percocet is starting to work. I would've preferred of the boot irrigation for over the next 3 hours ago liter an hour and see how he does. I will give him Klonopin 2 mg by mouth to help sleep. 07/25/17 06:58 CBI or continuous bladder irrigation is been running about 1 L an hour and is quite bloody stool. I therefore spoke with Dr. Mackenzie kaplan on-call urologist to his seen Florencio in the past and he indicates that the catheter itself may be one of the major irritants but the patient was insistent upon having reinserted. His recommendation was take the Sierra catheter out and see if the bleeding stopped. Also could offer him or be suppositories from her skilled pharmacy which would help a lot with his bladder spasms. However long- term it was certainly expressed that he is to go to the [facility] to have his bladder and prostate removed. I'm not sure that he is a candidate with evidence of metastatic spread to the pubic ramus with an elevated CRP and alk phosphatase.. It seems that no one has [facility] and made arrangements for consultation at the [facility] and also is very unclear as to how the patient would travel to that institution. He is currently sleeping very soundly after receiving the Klonopin 2 mg by mouth. 11/08/17 06:45: Spoke to 1 call system at [facility] in [place] with Dr. Patel and also video presentation operator hospitalist Dr. Seth and after consultation with each other and ourselves they decided they did not have anything to offer this patient. Dr. Patel strongly feels the only option for this patient is to have his bladder prostate completely removed surgically at the [facility]. Unfortunately his primary care physician has to make this referral whom is Mckenna Quintana. Jesse who is Dr. Ptael`s nurse states he would certainly help facilitate [facility] visit and apparently the patient already has a [facility] registration number. Jesse can be reached at . The [facility] number I have for intake is . Possibility of taking the catheter out and seeing if the bleeding resolves. Using old be suppositories to see if bladder spasms would be better controlled. These are options until the patient can get down to the [facility]. I think a major barrier is also going to be trying to find transportation for this fellow to get to the [facility] for definitive management. At this time his catheter is functioning it may well plug up again with clot and he may have to return to the ED over the next several days to have his catheter irrigated until he can get down to the [facility]. Is likely going to take several days to facilitate this process. Care will be turned over to Dr. Tom at change of shift and he will try and get a hold of Mckenna Quintana when she comes into clinic this morning so that we can decide on a disposition for this patient.
[2017-07-25] MEDS ORDERED: Acetaminophen/oxyCODONE 325-5 MG Tab PO ONE ×2 (02:08→12:01)
[2017-07-25] MEDS ORDERED: ClonazePAM 0.5 MG Tab PO ONE (02:55)
[2017-07-25] MEDS ORDERED: Sodium Chloride 0.9% 10 ML Syringe FLUSH PRN (14:47)
[2017-07-25 15:26] VITALS: BP 128/75
== END 2017-07-25 15:19 ==
LOC: JD.ED 23:55
DX: T83.9XXA Unspecified complication of genitourinary prosthetic device, implant and graft, initial encounter (principal); N39.0 Urinary tract infection, site not specified; R31.0 Gross hematuria; D64.9 Anemia, unspecified; C61 Malignant neoplasm of prostate; I10 Essential (primary) hypertension; K21.9 Gastro-esophageal reflux disease without esophagitis; E11.9 Type 2 diabetes mellitus without complications; Z79.82 Long term (current) use of aspirin; Z79.2 Long term (current) use of antibiotics; Z79.84 Long term (current) use of oral hypoglycemic drugs; Z79.899 Other long term (current) drug therapy; Z98.890 Other specified postprocedural states
CPT/HCPCS: 36415; 51700; 51702; 80053; 81001; 85025; 86140; 87086; 87088; 87186; 99283; 99285; A9270; J7050; 99284

== ENCOUNTER 2017-07-28 21:33 | Inpatient (IN) | payer MEDICARE, OTHER, MEDICAID ==
--- NOTE | 2017-07-28 22:33 | EDM.PDOC ---
ED HPI GENERAL MEDICAL PROBLEM - General Chief Complaint: Genitourinary Problem Stated Complaint: AMBULANCE Time Seen by Provider: 07/28/17 22:00 Source of Information: Reports: Patient History Limitations: Reports: No Limitations - History of Present Illness INITIAL COMMENTS - FREE TEXT/NARRATIVE: This is a 62-year-old male. He was in [facility] this last week and just released from [place] due to chronic hematuria. He is kind of uncertain as to what the cause is and his urologist it [place] can do nothing for him at this time. He was in the hospital last week and he had catheter irrigation and it seemed to clear up the bleeding but as soon as they stopped the irrigation then the bleeding seems to return. He does have a history of prostate cancer and supposedly they burn some blood vessels too much. He is being referred to the [facility] by his family physician but this has not occurred at this time. The bleeding seemed to get worse today so he comes to the ER for evaluation. He is certainly set up with the system and being bounced around for his hematuria but this been going on for more than 6 months now. I explained to him that we can irrigate his catheter and we can check to make sure he is not getting into trouble with his blood count but he needs to go to [facility] and it's his family doctor this going to have to make that arrangement that we cannot. He's had no fever no chills no nausea vomiting no cough or congestion Perineal Area Pain Score (Numeric/FACES): 5 - Related Data Allergies Allergy/AdvReac Type Severity Reaction Status Date / Time No Known Allergies Allergy Verified 07/29/17 00:51 Home Meds: Home Meds Allopurinol [Zyloprim] 150 mg PO MOWEFR 08/17/15 [History] Oxybutynin 5 mg PO BID PRN MDD overactive bladder 08/17/15 [History] metFORMIN [Glucophage] 1,000 mg PO BID 08/17/15 [History] Ascorbate Calcium [Vitamin C] 500 mg PO BID 01/04/17 [History] Aspirin [Adult Low Dose Aspirin EC] 81 mg PO DAILY 01/04/17 [History] Calcium Carbonate/Vitamin D3 [Calcium 500-Vit D3 200 Caplet] 1 tab PO BID [History] Ferrous Sulfate 325 mg PO BID 01/04/17 [History] Polyethylene Glycol 3350 [MiraLAX] 17 gm PO DAILY 01/04/17 [History] Sennosides/Docusate Sodium [Senna-Docusate Sodium] 1 tab PO BID 01/04/17 [ History] amLODIPine [Norvasc] 5 mg PO DAILY 01/04/17 [History] cloNIDine [Catapres] 0.1 mg PO DAILY 01/04/17 [History] Phenazopyridine HCl [Pyridium] 200 mg PO Q8H #6 tablet 07/18/17 [Rx] Benzonatate 200 mg PO TID PRN 07/28/17 [History] Cyclobenzaprine [Flexeril] 5 mg PO TID 07/28/17 [History] Losartan [Cozaar] 50 mg PO DAILY 07/28/17 [History] Metoprolol Succinate [Toprol XL] 100 mg PO DAILY 07/28/17 [History] Mirtazapine 15 mg PO BEDTIME 07/28/17 [History] Tamsulosin [Flomax] 0.4 mg PO DAILY 07/28/17 [History] Past Medical History HEENT History: Reports: Impaired Vision Cardiovascular History: Reports: Hypertension Gastrointestinal History: Reports: GERD Genitourinary History: Reports: Other (See Below) Other Genitourinary History: prostate cancer Musculoskeletal History: Reports: Back Pain, Chronic, Fracture, Gout Neurological History: Reports: Brain Injury Psychiatric History: Reports: None Endocrine/Metabolic History: Reports: Diabetes, Type II Hematologic History: Reports: None Immunologic History: Reports: None Oncologic (Cancer) History: Reports: Prostate Dermatologic History: Reports: None - Infectious Disease History Infectious Disease History: Reports: None - Past Surgical History Respiratory Surgical History: Reports: None GI Surgical History: Reports: Colonoscopy Male Surgical History: Reports: TURP-Transurethral Resection of Prostate Neurological Surgical History: Reports: Lumbar Spine Musculoskeletal Surgical History: Reports: Knee Replacement, ORIF, Other (See Below) Social & Family History - Family History Family Medical History: Unobtainable - Tobacco Use Smoking Status *Q: Never Smoker Years of Tobacco use: 45 Packs/Tins Daily: 0.2 Used Tobacco, but Quit: No Second Hand Smoke Exposure: No - Caffeine Use Caffeine Use: Reports: Tea - Alcohol Use Days Per Week of Alcohol Use: 4 Number of Drinks Per Day: 3 Total Drinks Per Week: 12 - Recreational Drug Use Recreational Drug Use: No - Living Situation & Occupation Living situation: Reports: , Alone Occupation: Unemployed ED ROS GENERAL - Review of Systems Review Of Systems: See Below Constitutional: Denies: Fever, Chills HEENT: Reports: No Symptoms Respiratory: Reports: No Symptoms Cardiovascular: Reports: No Symptoms Endocrine: Reports: No Symptoms GI/Abdominal: Reports: Abdominal Pain, Other (Lower abdominal soreness over his bladder) : Reports: Hematuria, Other (Chronic [place] catheter) Musculoskeletal: Reports: No Symptoms Skin: Reports: No Symptoms Neurological: Reports: No Symptoms Psychiatric: Reports: No Symptoms Hematologic/Lymphatic: Reports: No Symptoms ED EXAM, RENAL/ - Physical Exam Exam: See Below Exam Limited By: No Limitations General Appearance: Alert, WD/WN, No Apparent Distress Eye Exam: Bilateral Eye: Normal Inspection Ears: Normal External Exam Nose: Normal Inspection Throat/Mouth: Normal Inspection, Normal Lips, Normal Voice Head: Normocephalic Neck: Supple Respiratory/Chest: No Respiratory Distress, Lungs Clear, Normal Breath Sounds Cardiovascular: Regular Rate, Rhythm, No Murmur GI/Abdominal: Soft, Other (Enlarged abdomen mild suprapubic soreness on palpation no masses noted no rebound no tenderness) Back Exam: Full Range of Motion Extremities: Normal Inspection, Normal Range of Motion, Non-Tender Neurological: Alert, Oriented Psychiatric: Normal Affect, Normal Mood Skin Exam: Warm, Dry Course - Vital Signs Last Recorded V/S: Last Vital Signs Temp 97.5 F 07/28/17 21:36 Pulse 105 H 07/28/17 21:36 Resp 16 07/28/17 21:36 BP 140/82 07/28/17 21:36 Pulse Ox 95 07/28/17 21:36 - Orders/Labs/Meds Orders: Active Orders 24 hr Category Date Time Status Communication Order [RC] STAT Care 07/28/17 22:29 Active Labs: Laboratory Tests 07/28/17 07/28/17 07/28/17 Range/Units 23:16 23:16 23:16 WBC 7.72 (4.23-9.07) K/mm3 RBC 2.93 L (4.63-6.08) M/mm3 Hgb 9.3 L (13.7-17.5) gm/L Hct 28.0 L (40.1-51.0) % MCV 95.6 H (79.0-92.2) fl MCH 31.7 (25.7-32.2) pg MCHC 33.2 (32.2-35.5) g/dl RDW Std Deviation 42.1 (35.1-43.9) fL Plt Count 446 H (163-337) K/mm3 MPV 9.4 (9.4-12.3) fl Neut % (Auto) 75.2 H (34.0-67.9) % Lymph % (Auto) 8.0 L (21.8-53.1) % [place] % (Auto) 9.5 (5.3-12.2) % Eos % (Auto) 5.4 (0.8-7.0) Baso % (Auto) 0.9 (0.1-1.2) % Neut # (Auto) 5.80 H (1.78-5.38) K/mm3 Lymph # (Auto) 0.62 L (1.32-3.57) K/mm3 [place] # (Auto) 0.73 (0.30-0.82) K/mm3 Eos # (Auto) 0.42 (0.04-0.54) K/mm3 Baso # (Auto) 0.07 (0.01-0.08) K/mm3 Manual Slide Review Abnormal smear Sodium 135 L (136-145) mEq/L Potassium 3.7 (3.5-5.1) mEq/L Chloride 100 (98-107) mEq/L Carbon Dioxide 27 (21-32) mEq/L Anion Gap 11.7 (5-15) BUN 11 (7-18) mg/dL Creatinine 0.8 (0.7-1.3) mg/dL Est Cr Clr Drug Dosing 117.36 mL/min Estimated GFR (MDRD) > 60 (>60) mL/min BUN/Creatinine Ratio 13.8 L (14-18) Glucose 259 H (74-106) mg/dL Calcium 9.3 (8.5-10.1) mg/dL Total Bilirubin 0.3 (0.2-1.0) mg/dL AST 23 (15-37) U/L ALT 18 (16-63) U/L Alkaline Phosphatase 190 H (46-116) U/L Total Protein 6.9 (6.4-8.2) g/dl Albumin 2.5 L (3.4-5.0) g/dl Globulin 4.4 gm/dL Albumin/Globulin Ratio 0.6 L (1-2) Prostate Specific Ag 13.2 H (0.1-4.0) ng/mL - Re-Assessments/Exams Free Text/Narrative Re-Assessment/Exam: 07/29/17 02:14 I spoke to the patient. The lab results suggest some anemia he is PSA is also elevated. I spoke to Dr. Virgen and he'll admit the patient for further evaluation and treatment as well as bladder irrigation. The patient needs to go to [facility] and this needs to be arranged by his family physician which I understand correctly she is doing presently. In the meantime we will monitor his gross hematuria to make sure he doesn't get into trouble. Departure - Departure Time of Disposition: 02:15 Disposition: Refer to Observation Condition: Fair Clinical Impression: Prostate cancer, Gross hematuria, Anemia due to chronic blood loss - Discharge Information ED Communication - ED Communication Date/Time Date: 07/29/17 Time Called: 02:16 - Discussed Case With (1) Discussed Case With (1): Admitting Provider Person/s Notified (1): Bala Virgen (He will admitted to observation) - My Orders Last 24 Hours: My Active Orders 07/28/17 22:29 Communication Order [RC] STAT - Assessment/Plan Last 24 Hours: My Active Orders 07/28/17 22:29 Communication Order [RC] STAT
[2017-07-29] MEDS ORDERED: HYDROmorphone 0.5 MG/0.5 ML Syringe IVPUSH PRN (02:47)
[2017-07-29] MEDS: Sodium Chloride 0.9% 1,000 ML IV SCH ×3 (03:05→21:25)
[2017-07-29] MEDS: Benzonatate 100 MG Cap PO PRN ×3 (03:06→18:34)
[2017-07-29] MEDS: guaiFENesin/Dextromethorphan 100-10 MG/5 ML Soln 5 ML Cup PO PRN ×3 (03:06→21:25)
--- NOTE | 2017-07-29 06:22 | PCM.HP ---
H&P History of Present Illness - General Date of Service: 07/29/17 Admit Problem/Dx: Admission Diagnosis/Problem Admission Diagnosis/Problem Hematuria Source of Information: Patient, Old Records, Provider, RN Notes Reviewed History Limitations: Reports: No Limitations Perineal Area Pain Score (Numeric/FACES): 5 - Related Data Allergies/Adverse Reactions: Allergies Allergy/AdvReac Type Severity Reaction Status Date / Time No Known Allergies Allergy Verified 07/29/17 00:51 Home Medications: Home Meds Allopurinol [Zyloprim] 150 mg PO MOWEFR 08/17/15 [History] Oxybutynin 5 mg PO BID PRN MDD overactive bladder 08/17/15 [History] metFORMIN [Glucophage] 1,000 mg PO BID 08/17/15 [History] Ascorbate Calcium [Vitamin C] 500 mg PO BID 01/04/17 [History] Aspirin [Adult Low Dose Aspirin EC] 81 mg PO DAILY 01/04/17 [History] Calcium Carbonate/Vitamin D3 [Calcium 500-Vit D3 200 Caplet] 1 tab PO BID [History] Ferrous Sulfate 325 mg PO BID 01/04/17 [History] Polyethylene Glycol 3350 [MiraLAX] 17 gm PO DAILY 01/04/17 [History] Sennosides/Docusate Sodium [Senna-Docusate Sodium] 1 tab PO BID 01/04/17 [ History] amLODIPine [Norvasc] 5 mg PO DAILY 01/04/17 [History] cloNIDine [Catapres] 0.1 mg PO DAILY 01/04/17 [History] Phenazopyridine HCl [Pyridium] 200 mg PO Q8H #6 tablet 07/18/17 [Rx] Benzonatate 200 mg PO TID PRN 07/28/17 [History] Cyclobenzaprine [Flexeril] 5 mg PO TID 07/28/17 [History] Losartan [Cozaar] 50 mg PO DAILY 07/28/17 [History] Metoprolol Succinate [Toprol XL] 100 mg PO DAILY 07/28/17 [History] Mirtazapine 15 mg PO BEDTIME 07/28/17 [History] Tamsulosin [Flomax] 0.4 mg PO DAILY 07/28/17 [History] Past Medical History HEENT History: Reports: Impaired Vision Cardiovascular History: Reports: Hypertension Gastrointestinal History: Reports: GERD Genitourinary History: Reports: Other (See Below) Other Genitourinary History: prostate cancer Musculoskeletal History: Reports: Back Pain, Chronic, Fracture, Gout Neurological History: Reports: Brain Injury Psychiatric History: Reports: None Endocrine/Metabolic History: Reports: Diabetes, Type II Hematologic History: Reports: None Immunologic History: Reports: None Oncologic (Cancer) History: Reports: Prostate Dermatologic History: Reports: None - Infectious Disease History Infectious Disease History: Reports: None - Past Surgical History Respiratory Surgical History: Reports: None GI Surgical History: Reports: Colonoscopy Male Surgical History: Reports: TURP-Transurethral Resection of Prostate Neurological Surgical History: Reports: Lumbar Spine Musculoskeletal Surgical History: Reports: Knee Replacement, ORIF, Other (See Below) Social & Family History - Family History Family Medical History: Unobtainable - Tobacco Use Smoking Status *Q: Never Smoker Years of Tobacco use: 45 Packs/Tins Daily: 0.2 Used Tobacco, but Quit: No Second Hand Smoke Exposure: No - Caffeine Use Caffeine Use: Reports: Tea - Alcohol Use Days Per Week of Alcohol Use: 4 Number of Drinks Per Day: 3 Total Drinks Per Week: 12 - Recreational Drug Use Recreational Drug Use: No - Living Situation & Occupation Living situation: Reports: , Alone Occupation: Unemployed H&P Review of Systems - Review of Systems: Review Of Systems: See Below Exam - Exam Exam: See Below - Vital Signs Vital Signs: Last Vital Signs Temp 36.6 C 07/29/17 01:40 Pulse 97 07/29/17 01:40 Resp 18 07/29/17 01:40 BP 143/81 H 07/29/17 01:40 Pulse Ox 97 07/29/17 01:40 Weight: 111.674 kg - Patient Data Result Diagrams: 07/28/17 23:16 07/28/17 23:16 *Q Meaningful Use (ADM) - VTE *Q VTE Criteria *Q: - Stroke *Q Stroke Criteria *Q: - AMI *Q AMI Criteria *Q: Problem List Initiated/Reviewed/Updated: Yes Orders Last 24hrs: Active Orders 24 hr Category Date Time Status Patient Status [ADT] Routine ADT 07/29/17 02:57 Active Bladder Irrigation [RC] INTERMITTENT Care 07/29/17 02:54 Active Up ad [place] [RC] ASDIRECTED Care 07/29/17 02:52 Active Vital Signs [RC] Q6H Care 07/29/17 02:56 Active Regular Diet [DIET] Diet 07/29/17 Breakfast Active BASIC METABOLIC PANEL,BMP [CHEM] Routine Lab 07/29/17 05:53 Received CBC W/O DIFF,HEMOGRAM [HEME] Routine Lab 07/29/17 05:53 Received Benzonatate [Tessalon Perles] Med 07/29/17 02:47 Active 100 mg PO TID PRN Dextromethorphan/guaiFENesin [Robitussin DM] Med 07/29/17 02:49 Active 10 ml PO Q4H PRN HYDROmorphone [Dilaudid] Med 07/29/17 02:47 Active 0.5 mg IVPUSH Q2H PRN Sodium Chloride 0.9% [Normal Saline] 1,000 ml Med 07/29/17 03:00 Active IV ASDIRECTED Code Status [Resuscitation Status] Routine Resus Stat 07/29/17 02:51 Ordered Medication Orders Benzonatate (Tessalon Perles) 100 mg PO TID PRN PRN Reason: Cough Last Admin: 07/29/17 03:06 Dose: 100 mg Guaifenesin/Phenylephrine HCl (Robitussin Dm) 10 ml PO Q4H PRN PRN Reason: Cough Last Admin: 07/29/17 03:06 Dose: 10 ml Hydromorphone HCl (Dilaudid) 0.5 mg IVPUSH Q2H PRN PRN Reason: Pain Last Admin: 07/29/17 03:06 Dose: 0.5 mg Sodium Chloride (Normal Saline) 1,000 mls @ 125 mls/hr IV ASDIRECTED MEL Last Admin: 07/29/17 03:05 Dose: 125 mls/hr
[2017-07-29] MEDS ORDERED: Oxybutynin 5 MG Tab PO PRN (06:25)
[2017-07-29] MEDS ORDERED: PHENAZOPYRIDINE HCL 200 MG PO SCH (06:30)
[2017-07-29] MEDS ORDERED: Bisacodyl 5 MG Tab PO PRN (06:57)
[2017-07-29] MEDS ORDERED: Acetaminophen 325 MG Tab PO PRN (06:57)
[2017-07-29] MEDS ORDERED: Ondansetron 4 MG/2 ML SDV IV PRN (06:57)
[2017-07-29] MEDS ORDERED: Albuterol/Ipratropium 3.0-0.5 MG/3 ML Neb Soln NEB PRN (06:57)
[2017-07-29] MEDS ORDERED: Promethazine 12.5 MG in Sodium Chloride 0.9% 50 ML IV PRN (06:57)
[2017-07-29] MEDS ORDERED: Metoprolol Tartrate 5 MG/5 ML SDV IVPUSH PRN (07:05)
[2017-07-29] MEDS ORDERED: Temazepam 30 MG Cap PO PRN (07:09)
--- NOTE | 2017-07-29 07:27 | PCM.HP ---
H&P History of Present Illness - General Date of Service: 07/29/17 Admit Problem/Dx: Admission Diagnosis/Problem Admission Diagnosis/Problem Hematuria Source of Information: Patient, Old Records, Provider, RN Notes Reviewed History Limitations: Reports: No Limitations - History of Present Illness Initial Comments - Free Text/Narative: This is a 62 yo white male with past medical hx/o Impaired Vision, HTN, GERD, Chronic Back Pain, Gout, Hx/o Brain Injury, and DM2 who comes for worsening hematuria that has been going for more than 6 months now. Patient carries a hx/o prostate cancer s/p TURP. He used to follow Dr. Tipton but now Dr. Crisostomo at [facility]. He was recently hospitalized in [facility] and [place] both in [place]. According to him, he went in to [facility], stayed there for a few days but they could not do much about him so he was transferred to [place]. Over at [place], he was seen and evaluated by Dr. Crisostomo. He underwent some urologic procedures to include bladder irrigation but not cauterization due to recent radiotherapy. He was discharged last week with recommendation's to go to [facility] for further evaluation. Unfortunately, after discharge his bleeding seemed to have returned. It is unclear however if his appointment has been set up for [facility] but he was told this will be arranged through his PCP. Patient lives alone and he has no support system at home. At that time of my interview, he complaints of sore/itchy throat and non- productive cough. He denies any fever or chills. No GI issues but admits to bladder discomfort. Patient is on ASA per home medication list but no other blood thinners. His initial workup in the emergency department shows a CBC remarkable for RBC of 2.93, hemoglobin of 9.3, hematocrit of 28, MCV of 95.6, platelet of 446, neutrophils of 75.2% and lymphocytes of 8%. His chemistry is remarkable for sodium of 135, glucose of 259, alkaline phosphatase of 190, albumin of 2.5, and PSA of 13.2. He is negative for influenza and rapid strep screening. Patient is being admitted for acute on chronic hematuria and acute pharyngitis. He is full code. Perineal Area Pain Score (Numeric/FACES): 5 Neck Pain Score (Numeric/FACES): 4 - Related Data Allergies/Adverse Reactions: Allergies Allergy/AdvReac Type Severity Reaction Status Date / Time No Known Allergies Allergy Verified 07/29/17 00:51 Home Medications: Home Meds Allopurinol [Zyloprim] 150 mg PO MOWEFR 08/17/15 [History] Oxybutynin 5 mg PO BID PRN MDD overactive bladder 08/17/15 [History] metFORMIN [Glucophage] 1,000 mg PO BID 08/17/15 [History] Ascorbate Calcium [Vitamin C] 500 mg PO BID 01/04/17 [History] Aspirin [Adult Low Dose Aspirin EC] 81 mg PO DAILY 01/04/17 [History] Calcium Carbonate/Vitamin D3 [Calcium 500-Vit D3 200 Caplet] 1 tab PO BID [History] Ferrous Sulfate 325 mg PO BID 01/04/17 [History] Polyethylene Glycol 3350 [MiraLAX] 17 gm PO DAILY 01/04/17 [History] Sennosides/Docusate Sodium [Senna-Docusate Sodium] 1 tab PO BID 01/04/17 [ History] amLODIPine [Norvasc] 5 mg PO DAILY 01/04/17 [History] cloNIDine [Catapres] 0.1 mg TOP DAILY 01/04/17 [History] Phenazopyridine HCl [Pyridium] 200 mg PO Q8H #6 tablet 07/18/17 [Rx] Benzonatate 200 mg PO TID PRN 07/28/17 [History] Cyclobenzaprine [Flexeril] 5 mg PO TID 07/28/17 [History] Losartan [Cozaar] 50 mg PO DAILY 07/28/17 [History] Metoprolol Succinate [Toprol XL] 100 mg PO DAILY 07/28/17 [History] Mirtazapine 15 mg PO BEDTIME 07/28/17 [History] Tamsulosin [Flomax] 0.4 mg PO DAILY 07/28/17 [History] Ferrous Sulfate 1 mg PO DAILY 07/29/17 [History] Indomethacin [Indocin] 25 mg PO DAILY PRN 07/29/17 [History] Nicotine [Nicoderm CQ] 1 TRDERM DAILY 07/29/17 [History] Non-Formulary Medication [NF Drug] 07/29/17 [History] Triamcinolone Acetonide [Kenalog-40] 40 mg INJECT ONETIME 07/29/17 [History] Past Medical History HEENT History: Reports: Impaired Vision Cardiovascular History: Reports: Hypertension Gastrointestinal History: Reports: GERD Genitourinary History: Reports: Other (See Below) Other Genitourinary History: prostate cancer Musculoskeletal History: Reports: Back Pain, Chronic, Fracture, Gout Neurological History: Reports: Brain Injury Psychiatric History: Reports: None Endocrine/Metabolic History: Reports: Diabetes, Type II Hematologic History: Reports: None Immunologic History: Reports: None Oncologic (Cancer) History: Reports: Prostate Dermatologic History: Reports: None - Infectious Disease History Infectious Disease History: Reports: None - Past Surgical History Respiratory Surgical History: Reports: None GI Surgical History: Reports: Colonoscopy Male Surgical History: Reports: TURP-Transurethral Resection of Prostate Neurological Surgical History: Reports: Lumbar Spine Musculoskeletal Surgical History: Reports: Knee Replacement, ORIF, Other (See Below) Social & Family History - Family History Family Medical History: Unobtainable - Tobacco Use Smoking Status *Q: Never Smoker Years of Tobacco use: 45 Packs/Tins Daily: 0.2 Used Tobacco, but Quit: No Second Hand Smoke Exposure: No - Caffeine Use Caffeine Use: Reports: Tea - Alcohol Use Days Per Week of Alcohol Use: 4 Number of Drinks Per Day: 3 Total Drinks Per Week: 12 - Recreational Drug Use Recreational Drug Use: No - Living Situation & Occupation Living situation: Reports: , Alone Occupation: Unemployed H&P Review of Systems - Review of Systems: Review Of Systems: See Below General: Denies: Fever, Weakness, Fatigue, Decreased Appetite HEENT: Reports: Sore Throat. Denies: Dysphasia, Ear Pain, Hearing Changes, Post Nasal Drip, Sinus Congestion Pulmonary: Reports: Cough. Denies: Shortness of Breath, Wheezing, Pleuritic Chest Pain, Sputum Cardiovascular: Denies: Chest Pain, Dyspnea on Exertion, Edema Gastrointestinal: Denies: Abdominal Pain, Decreased Appetite, Nausea, Vomiting Genitourinary: Reports: Burning, Hematuria, Other (Bladder Discomfort) Musculoskeletal: Reports: No Symptoms Skin: Reports: No Symptoms Psychiatric: Denies: Depression, Anxiety, Agitation, Hallucinations Neurological: Denies: Confusion, Pre-Existing Deficit, Difficulty Walking, Weakness, Gait Disturbance Hematologic/Lymphatic: Reports: No Symptoms Immunologic: Reports: No Symptoms Exam - Exam Exam: See Below - Vital Signs Vital Signs: Last Vital Signs Temp 36.6 C 07/29/17 01:40 Pulse 97 07/29/17 01:40 Resp 18 07/29/17 01:40 BP 143/81 H 07/29/17 01:40 Pulse Ox 97 07/29/17 01:40 Weight: 111.674 kg - Exam General: Alert, Oriented, Cooperative, Mild Distress, Other (Obese) HEENT: Conjunctiva Clear, EACs Clear, EOMI, Hearing Intact, Mucosa Moist & [place] , Nares Patent, Normal Nasal Septum, Posterior Pharynx Clear, Pupils Equal, Pupils Reactive Neck: Supple, Trachea Midline, +2 Carotid Pulse wo Bruit Lungs: Clear to Auscultation, Normal Respiratory Effort Cardiovascular: Regular Rate, Regular Rhythm GI/Abdominal Exam: Normal Bowel Sounds, Soft, Non-Tender, No Organomegaly, No Distention, No Abnormal Bruit (Male) Exam: Suprapubic Fullness, Other (Indwelling catheter) Rectal (Males) Exam: Deferred Back Exam: Normal Inspection, Decreased Range of Motion Extremities: Normal Inspection, Normal Range of Motion, Non-Tender, No Pedal Edema, Normal Capillary Refill, Other (bilateral knee scar) Peripheral Pulses: 2+: Posterior Tibial (L), Posterior Tibial (R), Dorsalis Pedis (L), Dorsalis Pedis (R) Skin: Warm, Dry, Intact, Other (mottled on bilateral lower extremity) Neuro Extensive - Mental Status: Oriented x3, Normal Cognition, Memory Intact Neuro Extensive - Motor, Sensory, Reflexes: CN II-XII Intact (grossly intact), Abnormal Gait Psychiatric: Alert, Normal Affect, Normal Mood - Patient Data Lab Results Last 24 hrs: Laboratory Results - last 24 hr 07/29/17 07/29/17 Range/Units 05:53 05:53 WBC 6.88 (4.23-9.07) K/mm3 RBC 2.75 L (4.63-6.08) M/mm3 Hgb 8.6 L (13.7-17.5) gm/L Hct 26.3 L (40.1-51.0) % MCV 95.6 H (79.0-92.2) fl MCH 31.3 (25.7-32.2) pg MCHC 32.7 (32.2-35.5) g/dl RDW Std Deviation 41.1 (35.1-43.9) fL Plt Count 418 H (163-337) K/mm3 MPV 9.3 L (9.4-12.3) fl Sodium 137 (136-145) mEq/L Potassium 3.5 (3.5-5.1) mEq/L Chloride 101 (98-107) mEq/L Carbon Dioxide 26 (21-32) mEq/L Anion Gap 13.5 (5-15) BUN 10 (7-18) mg/dL Creatinine 0.7 (0.7-1.3) mg/dL Est Cr Clr Drug Dosing 134.13 mL/min Estimated GFR (MDRD) > 60 (>60) mL/min BUN/Creatinine Ratio 14.3 (14-18) Glucose 191 H (74-106) mg/dL Calcium 8.6 (8.5-10.1) mg/dL Result Diagrams: 07/30/17 05:23 07/30/17 05:23 *Q Meaningful Use (ADM) - VTE *Q VTE Criteria *Q: - Stroke *Q Stroke Criteria *Q: - AMI *Q AMI Criteria *Q: Problem List Initiated/Reviewed/Updated: Yes Orders Last 24hrs: Active Orders 24 hr Category Date Time Status Patient Status [ADT] Routine ADT 07/29/17 02:57 Active Antiembolic Devices [RC] PER UNIT ROUTINE Care 07/29/17 06:59 Active Bladder Irrigation [RC] BID Care 07/29/17 07:01 Active Bladder Irrigation [RC] QSHIFT Care 07/29/17 02:54 Active Height and Weight [RC] DAILY Care 07/29/17 06:57 Active Intake and Output [RC] QSHIFT Care 07/29/17 06:57 Active Oxygen Therapy [RC] PRN Care 07/29/17 06:57 Active Oxygen Therapy [RC] PRN Care 07/29/17 06:59 Active RT Aerosol Therapy [RC] ASDIRECTED Care 07/29/17 06:59 Active Up With Assistance [RC] ASDIRECTED Care 07/29/17 06:57 Active Up ad Anusha [RC] ASDIRECTED Care 07/29/17 02:52 Active Up ad Anusha [RC] ASDIRECTED Care 07/29/17 06:57 Active VTE/DVT Education [RC] PER UNIT ROUTINE Care 07/29/17 06:57 Active VTE/DVT Education [RC] PER UNIT ROUTINE Care 07/29/17 06:59 Active Vital Signs [RC] Q4H Care 07/29/17 06:57 Active Vital Signs [RC] Q4H Care 07/29/17 06:59 Active Vital Signs [RC] Q6H Care 07/29/17 02:56 Active Consult to Case Management [CONS] Routine Cons 07/29/17 07:00 Active Consult to Film Spooler [CONS] Routine Cons 07/29/17 07:00 Active Consult to Spiritual Care [CONS] Routine Cons 07/29/17 07:00 Active OT Evaluation and Treatment [CONS] Routine Cons 07/29/17 07:00 Active PT Evaluation and Treatment [CONS] Routine Cons 07/29/17 07:00 Active Regular Diet [DIET] Diet 07/29/17 Breakfast Active BASIC METABOLIC PANEL,BMP [CHEM] AM Lab 07/30/17 05:11 Ordered BASIC METABOLIC PANEL,BMP [CHEM] AM Lab 07/31/17 05:11 Ordered BASIC METABOLIC PANEL,BMP [CHEM] AM Lab 08/01/17 05:11 Ordered BASIC METABOLIC PANEL,BMP [CHEM] AM Lab 08/02/17 05:11 Ordered BASIC METABOLIC PANEL,BMP [CHEM] AM Lab 08/03/17 05:11 Ordered CBC WITH AUTO DIFF [HEME] AM Lab 07/30/17 05:11 Ordered CBC WITH AUTO DIFF [HEME] AM Lab 07/31/17 05:11 Ordered CBC WITH AUTO DIFF [HEME] AM Lab 08/01/17 05:11 Ordered CBC WITH AUTO DIFF [HEME] AM Lab 08/02/17 05:11 Ordered HEMOGLOBIN/HEMATOCRIT,HH [HEME] Routine Lab 07/29/17 16:00 Ordered INFLUENZA A+B AG SCREEN [RM] Routine Lab 07/29/17 06:39 Received MAGNESIUM [CHEM] AM Lab 07/30/17 05:11 Ordered MAGNESIUM [CHEM] AM Lab 07/31/17 05:11 Ordered MAGNESIUM [CHEM] AM Lab 08/01/17 05:11 Ordered MAGNESIUM [CHEM] AM Lab 08/02/17 05:11 Ordered METH-RESIST S.AUR,MRSA BY PCR [MOLEC] Routine Lab 07/29/17 06:45 Received Rapid Strep w/culture conf [STREP SCRN A RAPID W CULT Lab 07/29/17 06:45 Received CONF] [RM] Routine Acetaminophen [Tylenol] Med 07/29/17 06:57 Active 650 mg PO Q4H PRN Albuterol/Ipratropium [DuoNeb 3.0-0.5 MG/3 ML] Med 07/29/17 06:57 Active 3 ml NEB Q4H PRN Allopurinol [Zyloprim] Med 07/30/17 09:00 Active 150 mg PO MoWeFr@0900 Ascorbic Acid [Vitamin C] Med 07/29/17 09:00 Active 500 mg PO BID Benzocaine [Hurricaine 20% [place]] Med 07/29/17 07:06 Active 15 ml MUCMEM Q4HR PRN Benzocaine/Cetylpyrd/Menthol [Cepacol Sore Throat] Med 07/29/17 07:06 Active 1 lozenge MUCMEM Q4HR PRN Benzonatate [Tessalon Perles] Med 07/29/17 02:47 Active 100 mg PO TID PRN Bisacodyl [Dulcolax] Med 07/29/17 06:57 Active 5 mg PO DAILY PRN Calcium Carbonate/Vitamin D3 Med 07/29/17 09:00 Pending 1 tab PO BID Cyclobenzaprine [Flexeril] Med 07/29/17 09:00 Active 5 mg PO TID Dextromethorphan/guaiFENesin [Robitussin DM] Med 07/29/17 02:49 Active 10 ml PO Q4H PRN Docusate Sodium [Colace] Med 07/29/17 06:57 Active 100 mg PO BID PRN Docusate Sodium/Sennosides [Senna Plus] Med 07/29/17 09:00 Active 1 tab PO BID Ferrous Sulfate Med 07/29/17 09:00 Active 325 mg PO BID HYDROmorphone [Dilaudid] Med 07/29/17 02:47 Active 0.5 mg IVPUSH Q2H PRN LORazepam [Ativan] Med 07/29/17 07:10 Active 0.5 mg IVPUSH Q4H PRN Losartan [Cozaar] Med 07/29/17 09:00 Active 50 mg PO DAILY Magnesium Rep Pharmacy to Dose [Pharmacy to Dose - Med 07/29/17 07:15 Pending Magnesium Replacement] 1 dose .XX ASDIRECTED Metoprolol Succinate [Toprol XL] Med 07/29/17 09:00 Active 100 mg PO DAILY Metoprolol Tartrate [Lopressor] Med 07/29/17 07:05 Active 5 mg IVPUSH Q4H PRN Mirtazapine [Remeron] Med 07/29/17 21:00 Active 15 mg PO BEDTIME Ondansetron [Zofran] Med 07/29/17 06:57 Active 4 mg IV Q6H PRN Oxybutynin Med 07/29/17 06:25 Active 5 mg PO BID PRN Phenazopyridine HCl Med 07/29/17 06:30 Pending 200 mg PO Q8H Polyethylene Glycol 3350 [MiraLAX] Med 07/29/17 09:00 Active 17 gm PO DAILY Potassium Chloride [Klor-Con M20] Med 07/29/17 08:00 Active 20 meq PO Q3H Potassium Rep Pharmacy to Dose [Pharmacy to Dose - Med 07/29/17 07:15 Pending Potassium Replacement] 1 dose .XX ASDIRECTED Promethazine [Phenergan] 12.5 mg Med 07/29/17 06:57 Active Sodium Chloride 0.9% [Normal Saline] 50 ml IV Q6H Sodium Chloride 0.9% [Normal Saline] 1,000 ml Med 07/29/17 03:00 Active IV ASDIRECTED Tamsulosin [Flomax] Med 07/29/17 09:00 Active 0.4 mg PO DAILY Temazepam [Restoril] Med 07/29/17 07:09 Active 30 mg PO BEDTIME PRN amLODIPine [Norvasc] Med 07/29/17 09:00 Active 5 mg PO DAILY cloNIDine [Catapres] Med 07/29/17 09:00 Active 0.1 mg PO DAILY hydrALAZINE [Apresoline] Med 07/29/17 07:05 Active 20 mg IVPUSH Q4H PRN metFORMIN [Glucophage] Med 07/29/17 06:45 Active 1,000 mg PO BIDMEALS oxyCODONE Med 07/29/17 06:57 Active 5 mg PO Q4H PRN Sequential Compression Device [OM.PC] Per Unit Routine Oth 07/29/17 06:58 Ordered Code Status [Resuscitation Status] Routine Resus Stat 07/29/17 02:51 Ordered Medication Orders Acetaminophen (Tylenol) 650 mg PO Q4H PRN PRN Reason: Pain (Mild 1-3)/fever Albuterol/Ipratropium (Duoneb 3.0-0.5 Mg/3 Ml) 3 ml NEB Q4H PRN PRN Reason: Shortness Of Breath/wheezing Allopurinol (Zyloprim) 150 mg PO MoWeFr@0900 [facility] Amlodipine Besylate (Norvasc) 5 mg PO DAILY [facility] Ascorbic Acid (Vitamin C) 500 mg PO BID [facility] Benzocaine (Hurricaine 20% [place]) 15 ml MUCMEM Q4HR PRN PRN Reason: Sore Throat Benzocaine/Menthol (Cepacol Sore Throat) 1 lozenge MUCMEM Q4HR PRN PRN Reason: Sore Throat Benzonatate (Tessalon Perles) 100 mg PO TID PRN PRN Reason: Cough Last Admin: 07/29/17 03:06 Dose: 100 mg Bisacodyl (Dulcolax) 5 mg PO DAILY PRN PRN Reason: Constipation Clonidine HCl (Catapres) 0.1 mg PO DAILY [facility] Cyclobenzaprine HCl (Flexeril) 5 mg PO TID [facility] Docusate Sodium (Colace) 100 mg PO BID PRN PRN Reason: Constipation Ferrous Sulfate (Ferrous Sulfate) 325 mg PO BID [facility] Guaifenesin/Phenylephrine HCl (Robitussin Dm) 10 ml PO Q4H PRN PRN Reason: Cough Last Admin: 07/29/17 03:06 Dose: 10 ml Hydralazine HCl (Apresoline) 20 mg IVPUSH Q4H PRN PRN Reason: Hypertension Hydromorphone HCl (Dilaudid) 0.5 mg IVPUSH Q2H PRN PRN Reason: Pain Last Admin: 07/29/17 03:06 Dose: 0.5 mg Sodium Chloride (Normal Saline) 1,000 mls @ 125 mls/hr IV ASDIRECTED MEL Last Admin: 07/29/17 03:05 Dose: 125 mls/hr Promethazine HCl 12.5 mg/ (Sodium Chloride) 50.5 mls @ 100 mls/hr IV Q6H PRN PRN Reason: Nausea/Vomiting Lorazepam (Ativan) 0.5 mg IVPUSH Q4H PRN PRN Reason: Anxiety Losartan Potassium (Cozaar) 50 mg PO DAILY [facility] Magnesium Sulfate (Pharmacy To Dose - Magnesium Replacement) 1 dose .XX ASDIRECTED [facility] Metformin HCl (Glucophage) 1,000 mg PO BIDMEALS [facility] Metoprolol Succinate (Toprol Xl) 100 mg PO DAILY [facility] Metoprolol Tartrate (Lopressor) 5 mg IVPUSH Q4H PRN PRN Reason: Tachycardia Mirtazapine (Remeron) 15 mg PO BEDTIME [facility] Non-Formulary Medication (Calcium Carbonate/Vitamin D3) 1 tab PO BID [facility] Non-Formulary Medication (Phenazopyridine Hcl) 200 mg PO Q8H [facility] Ondansetron HCl (Zofran) 4 mg IV Q6H PRN PRN Reason: Nausea/Vomiting Oxybutynin Chloride (Oxybutynin) 5 mg PO BID PRN PRN Reason: Other Oxycodone HCl (Oxycodone) 5 mg PO Q4H PRN PRN Reason: Pain (moderate 4-6) Polyethylene Glycol (Miralax) 17 gm PO DAILY [facility] Potassium Chloride (Pharmacy To Dose - Potassium Replacement) 1 dose .XX ASDIRECTED [facility] Potassium Chloride (Klor-Con M20) 20 meq PO Q3H [facility] Stop: 07/29/17 11:01 Senna/Docusate Sodium (Senna Plus) 1 tab PO BID [facility] Tamsulosin HCl (Flomax) 0.4 mg PO DAILY [facility] Temazepam (Restoril) 30 mg PO BEDTIME PRN PRN Reason: Insomnia Assessment/Plan Comment:: Assessment/Plan: Acute: Hemorrhagic Cystitis - Has hematuria, dysuria and cystitis - Likely post radiation; has completed [address] session [address] Peralta - Risk factors: hx/o prostate cancer s/p turp, chronic hematuria - No hx/o cyclophosphamide/ifosphamide use - UA positive for E. faecalis and coli - He had bladder irrigation but not cauterization last week in [place] - He continues to have hematuria with clots - He is only on ASA - He follows Dr. Crisostomo and was told to go to [facility] - Plan: Set up appointment to [facility], Avoid ASA and any anticogs, Monitor H/H and Bladder Irrigation Q shift Complicated Cystitis - Has hematuria with hx/o prostate cancer s/p turp and radiation therapy - UA on 07/25/2017 pos for E, coli and faecalis sensitive - Will start IV Rocephin daily Anemia - Acute on Chronic - 2/2 Hematuria - Hgb this am is 8.6 - He is hemodynamically stable - Follow up H/H this afternoon - Continue oral iron pills Pharyngitis - Likely Viral - He is negative for influenza and rapid strep - He mild erythema but w/o exudate or edema - Q4 PRN Cepacol and Benzocaine spray Chronic: Impaired Vision HTN, Stable DM2, Accu-check AM/HS with ISS GERD, H2B Back Pain, PRN pain meds Gout, Allopurinol and Indomethacin Nicotine Dependence, Nicotine Patch Hx/o Brain Injury Hx/o Prostate cancer S/p TURP and Radiation Therapy Plan: Admit to Med-Surg Routine AM Labs Resume Home Meds except ASA PT/OT consult Bladder Irrigation Q shift Will try to obtain charts from [facility] DVT/GI PPx: H2B and SCDs; anticoags contraindicated due to hematuria SW/CM for d/c planning and to help to set up [facility] appointment Additional orders as above Code status: 1
[2017-07-29] MEDS: Ferrous Sulfate 325 MG Tab PO SCH ×2 (09:03→20:23)
[2017-07-29] MEDS: Ascorbic Acid 500 MG Tab PO SCH ×2 (09:03→20:25)
[2017-07-29] MEDS: metFORMIN 500 MG Tab PO SCH ×3 (09:03→16:49)
[2017-07-29] MEDS: Tamsulosin 0.4 MG Cap.ER PO SCH (09:03)
[2017-07-29] MEDS: Calcium Carbonate/Vitamin D3 1500 MG-200 Units Tab PO SCH ×2 (09:04→20:25)
[2017-07-29] MEDS: Potassium Chloride 20 MEQ Tab.ER PO SCH ×2 (09:04→10:57)
[2017-07-29] MEDS: Polyethylene Glycol 3350 Powder 17 GM Packet PO SCH (09:07)
[2017-07-29] MEDS: Metoprolol Succinate 50 MG Tab.ER PO SCH (09:12)
[2017-07-29] MEDS: Cyclobenzaprine 10 MG Tab PO SCH ×3 (09:13→20:24)
[2017-07-29] MEDS: Losartan 25 MG Tab PO SCH (09:13)
[2017-07-29] MEDS: cloNIDine 0.1 MG Tab PO SCH (09:13)
[2017-07-29] MEDS: amLODIPine 5 MG Tab PO SCH (09:16)
[2017-07-29] MEDS: Benzocaine 20% Oral Spray 59.2 ML Canister MUCMEM PRN ×3 (10:57→20:40)
[2017-07-29] MEDS: Benzocaine/Cetylpyridinium/Menthol Lozenge MUCMEM PRN (10:57)
[2017-07-29] MEDS: oxyCODONE 5 MG Tab PO PRN ×2 (11:33→22:44)
[2017-07-29] MEDS ORDERED: cefTRIAXone 2 GM in Sodium Chloride 0.9% 100 ML IV ONE (12:07)
[2017-07-29] MEDS ORDERED: Indomethacin 25 MG Cap PO PRN (12:09)
[2017-07-29] MEDS: Mirtazapine 15 MG Tab PO SCH (20:24)
[2017-07-29] MEDS ORDERED: 50% Dextrose in Water 50 ML Syringe IVPUSH PRN (22:50)
[2017-07-29] MEDS ORDERED: Insulin Aspart 100 Units/ML 3 ML Pen SUBCUT SCH (23:00)
[2017-07-30] MEDS: Benzocaine 20% Oral Spray 59.2 ML Canister MUCMEM PRN ×3 (00:20→16:07)
[2017-07-30] MEDS: Benzonatate 100 MG Cap PO PRN ×2 (00:38→09:14)
[2017-07-30] MEDS: hydrALAZINE 20 MG/ML SDV IVPUSH PRN (00:39)
[2017-07-30] MEDS: Benzocaine/Cetylpyridinium/Menthol Lozenge MUCMEM PRN ×3 (00:43→22:37)
[2017-07-30] MEDS: Sodium Chloride 0.9% 1,000 ML IV SCH ×3 (04:36→20:56)
[2017-07-30] MEDS: guaiFENesin/Dextromethorphan 100-10 MG/5 ML Soln 5 ML Cup PO PRN ×2 (05:43→12:20)
[2017-07-30] MEDS: Docusate Sodium 100 MG Cap PO PRN (05:43)
--- NOTE | 2017-07-30 07:50 | PCM.PN ---
- General Info Date of Service: 07/30/17 Admission Dx/Problem (Free Text): Admission Diagnosis/Problem Admission Diagnosis/Problem Hematuria Subjective Update: Follow Up Functional Status: Reports: Pain Controlled, Tolerating Diet, Urinating. Denies : New Symptoms - Review of Systems General: Denies: Fever, Weakness, Chills HEENT: Denies: No Symptoms Pulmonary: Denies: Shortness of Breath Cardiovascular: Denies: Chest Pain Gastrointestinal: Denies: Abdominal Pain, Nausea, Vomiting Genitourinary: Reports: Hematuria Musculoskeletal: Reports: No Symptoms Skin: Denies: Cyanosis, Jaundice, Pallor, Diaphoresis, Rash Neurological: Reports: Gait Disturbance. Denies: Confusion, Difficulty Walking , Weakness Psychiatric: Denies: Depression, Anxiety, Agitation, Hallucinations Systems Review Comment:: No significant overnight or acute issues. He slept good and feels pretty good. He still has mild hematuria. His Hgb this am is at 9.0. He is afebrile w/o leukocytosis. He denies any new complaints. - Patient Data Vitals - Most Recent: Last Vital Signs Temp 37.1 C 07/30/17 04:34 Pulse 113 H 07/30/17 04:34 Resp 20 07/30/17 04:34 BP 152/81 H 07/30/17 04:34 Pulse Ox 95 07/30/17 04:34 Weight - Most Recent: 111.674 kg I&O - Last 24 Hours: Intake & Output 07/29/17 07/30/17 07/30/17 22:59 06:59 14:59 Intake Total [id number] [id number] Output Total 7016 60227 Balance 42690 4893 Lab Results Last 24 Hours: Laboratory Results - last 24 hr 07/29/17 07/29/17 07/30/17 Range/Units 06:45 16:10 05:23 WBC 8.25 (4.23-9.07) K/mm3 RBC 2.86 L (4.63-6.08) M/mm3 Hgb 9.2 L 9.0 L (13.7-17.5) gm/L Hct 27.9 L 27.6 L (40.1-51.0) % MCV 96.5 H (79.0-92.2) fl MCH 31.5 (25.7-32.2) pg MCHC 32.6 (32.2-35.5) g/dl RDW Std Deviation 43.0 (35.1-43.9) fL Plt Count 455 H (163-337) K/mm3 MPV 9.7 (9.4-12.3) fl Neut % (Auto) 80.7 H (34.0-67.9) % Lymph % (Auto) 6.4 L (21.8-53.1) % Placer % (Auto) 8.1 (5.3-12.2) % Eos % (Auto) 3.4 (0.8-7.0) Baso % (Auto) 0.4 (0.1-1.2) % Neut # (Auto) 6.66 H (1.78-5.38) K/mm3 Lymph # (Auto) 0.53 L (1.32-3.57) K/mm3 Placer # (Auto) 0.67 (0.30-0.82) K/mm3 Eos # (Auto) 0.28 (0.04-0.54) K/mm3 Baso # (Auto) 0.03 (0.01-0.08) K/mm3 Manual Slide Review Abnormal smear Sodium (136-145) mEq/L Potassium (3.5-5.1) mEq/L Chloride (98-107) mEq/L Carbon Dioxide (21-32) mEq/L Anion Gap (5-15) BUN (7-18) mg/dL Creatinine (0.7-1.3) mg/dL Est Cr Clr Drug Dosing mL/min Estimated GFR (MDRD) (>60) mL/min BUN/Creatinine Ratio (14-18) Glucose (74-106) mg/dL Calcium (8.5-10.1) mg/dL Magnesium (1.8-2.4) mg/dl MRSA (PCR) Negative 07/30/17 Range/Units 05:23 WBC (4.23-9.07) K/mm3 RBC (4.63-6.08) M/mm3 Hgb (13.7-17.5) gm/L Hct (40.1-51.0) % MCV (79.0-92.2) fl MCH (25.7-32.2) pg MCHC (32.2-35.5) g/dl RDW Std Deviation (35.1-43.9) fL Plt Count (163-337) K/mm3 MPV (9.4-12.3) fl Neut % (Auto) (34.0-67.9) % Lymph % (Auto) (21.8-53.1) % Placer % (Auto) (5.3-12.2) % Eos % (Auto) (0.8-7.0) Baso % (Auto) (0.1-1.2) % Neut # (Auto) (1.78-5.38) K/mm3 Lymph # (Auto) (1.32-3.57) K/mm3 Placer # (Auto) (0.30-0.82) K/mm3 Eos # (Auto) (0.04-0.54) K/mm3 Baso # (Auto) (0.01-0.08) K/mm3 Manual Slide Review Sodium 137 (136-145) mEq/L Potassium 3.7 (3.5-5.1) mEq/L Chloride 101 (98-107) mEq/L Carbon Dioxide 25 (21-32) mEq/L Anion Gap 14.7 (5-15) BUN 9 (7-18) mg/dL Creatinine 0.7 (0.7-1.3) mg/dL Est Cr Clr Drug Dosing 134.13 mL/min Estimated GFR (MDRD) > 60 (>60) mL/min BUN/Creatinine Ratio 12.9 L (14-18) Glucose 213 H (74-106) mg/dL Calcium 9.2 (8.5-10.1) mg/dL Magnesium 1.2 L (1.8-2.4) mg/dl MRSA (PCR) Jeramie Results Last 24 Hours: Microbiology 07/29/17 06:45 Quick Strep Confirmation Culture - Final Throat NEGATIVE FOR BETA STREP Group A Streptococcus Rapid Screen - Final NEGATIVE STREP A SCREEN 07/29/17 06:39 Influenza Type A Antigen Screen - Final Nasopharyngeal Swab - Nare, Unspecified NEGATIVE INFLUENZA A VIRUS AG Influenza Type B Antigen Screen - Final NEGATIVE INFLUENZA B VIRUS AG Med Orders - Current: Current Medications Acetaminophen (Tylenol) 650 mg PO Q4H PRN PRN Reason: Pain (Mild 1-3)/fever Albuterol/Ipratropium (Duoneb 3.0-0.5 Mg/3 Ml) 3 ml NEB Q4H PRN PRN Reason: Shortness Of Breath/wheezing Allopurinol (Zyloprim) 150 mg PO MoWeFr@0900 [facility] Amlodipine Besylate (Norvasc) 5 mg PO DAILY [facility] Last Admin: 07/29/17 09:16 Dose: 5 mg Ascorbic Acid (Vitamin C) 500 mg PO BID [facility] Last Admin: 07/29/17 20:25 Dose: 500 mg Benzocaine (Hurricaine 20% [place]) 15 ml MUCMEM Q4HR PRN PRN Reason: Sore Throat Last Admin: 07/30/17 00:20 Dose: 1 dose Benzocaine/Menthol (Cepacol Sore Throat) 1 lozenge MUCMEM Q4HR PRN PRN Reason: Sore Throat Last Admin: 07/30/17 05:43 Dose: 1 lozenge Benzonatate (Tessalon Perles) 200 mg PO TID PRN PRN Reason: Cough Last Admin: 07/30/17 00:38 Dose: 200 mg Bisacodyl (Dulcolax) 5 mg PO DAILY PRN PRN Reason: Constipation Calcium Carbonate (Calcium Carbonate/Vitamin D 1500 Mg-200 Unit) 1 tab PO BID [facility] Last Admin: 07/29/17 20:25 Dose: 1 tab Clonidine HCl (Catapres) 0.1 mg PO DAILY [facility] Last Admin: 07/29/17 09:13 Dose: 0.1 mg Cyclobenzaprine HCl (Flexeril) 5 mg PO TID [facility] Last Admin: 07/29/17 20:24 Dose: 5 mg Dextrose/Water (Dextrose 50% In Water) 50 ml IVPUSH ASDIRECTED PRN PRN Reason: Hypoglycemia Docusate Sodium (Colace) 100 mg PO BID PRN PRN Reason: Constipation Last Admin: 07/30/17 05:43 Dose: 100 mg Famotidine (Pepcid) 20 mg PO BID [facility] Ferrous Sulfate (Ferrous Sulfate) 325 mg PO BID [facility] Last Admin: 07/29/17 20:23 Dose: 325 mg Ferrous Sulfate (Ferrous Sulfate) 325 mg PO DAILY [facility] Guaifenesin/Phenylephrine HCl (Robitussin Dm) 10 ml PO Q4H PRN PRN Reason: Cough Last Admin: 07/30/17 05:43 Dose: 10 ml Hydralazine HCl (Apresoline) 20 mg IVPUSH Q4H PRN PRN Reason: Hypertension Last Admin: 07/30/17 00:39 Dose: 20 mg Hydromorphone HCl (Dilaudid) 0.5 mg IVPUSH Q2H PRN PRN Reason: Pain Last Admin: 07/29/17 03:06 Dose: 0.5 mg Sodium Chloride (Normal Saline) 1,000 mls @ 125 mls/hr IV ASDIRECTED [facility] Last Admin: 07/30/17 04:36 Dose: 125 mls/hr Promethazine HCl 12.5 mg/ (Sodium Chloride) 50.5 mls @ 100 mls/hr IV Q6H PRN PRN Reason: Nausea/Vomiting Ceftriaxone Sodium 1 gm/ (Sodium Chloride) 100 mls @ 200 mls/hr IV Q24H [facility] Indomethacin (Indocin) 25 mg PO DAILY PRN PRN Reason: Pain (moderate 4-6) Insulin Aspart (Novolog) 0 unit SUBCUT [facility] PRN Reason: Protocol Lorazepam (Ativan) 0.5 mg IVPUSH Q4H PRN PRN Reason: Anxiety Losartan Potassium (Cozaar) 50 mg PO DAILY [facility] Last Admin: 07/29/17 09:13 Dose: 50 mg Magnesium Sulfate (Pharmacy To Dose - Magnesium Replacement) 0 dose .XX ASDIRECTED PRN PRN Reason: RX TO WATCH MAG LEVELS Metformin HCl (Glucophage) 1,000 mg PO BIDMEALS [facility] Last Admin: 07/29/17 16:49 Dose: 1,000 mg Metoprolol Succinate (Toprol Xl) 100 mg PO DAILY [facility] Last Admin: 07/29/17 09:12 Dose: 100 mg Metoprolol Tartrate (Lopressor) 5 mg IVPUSH Q4H PRN PRN Reason: Tachycardia Mirtazapine (Remeron) 15 mg PO BEDTIME [facility] Last Admin: 07/29/17 20:24 Dose: 15 mg Ondansetron HCl (Zofran) 4 mg IV Q6H PRN PRN Reason: Nausea/Vomiting Oxybutynin Chloride (Oxybutynin) 5 mg PO BID PRN PRN Reason: Other Last Admin: 07/29/17 11:34 Dose: 5 mg Oxycodone HCl (Oxycodone) 5 mg PO Q4H PRN PRN Reason: Pain (moderate 4-6) Last Admin: 07/29/17 22:44 Dose: 5 mg Polyethylene Glycol (Miralax) 17 gm PO DAILY [facility] Last Admin: 07/29/17 09:07 Dose: Not Given Potassium Chloride (Pharmacy To Dose - Potassium Replacement) 0 dose .XX ASDIRECTED PRN PRN Reason: RX TO WATCH K LEVELS Senna/Docusate Sodium (Senna Plus) 1 tab PO BID [facility] Last Admin: 07/29/17 20:25 Dose: 1 tab Tamsulosin HCl (Flomax) 0.4 mg PO DAILY [facility] Last Admin: 07/29/17 09:03 Dose: 0.4 mg Temazepam (Restoril) 30 mg PO BEDTIME PRN PRN Reason: Insomnia Discontinued Medications Benzonatate (Tessalon Perles) 100 mg PO TID PRN PRN Reason: Cough Last Admin: 07/29/17 11:33 Dose: 100 mg Ceftriaxone Sodium 2 gm/ (Sodium Chloride) 100 mls @ 200 mls/hr IV ONETIME ONE Stop: 07/29/17 12:36 Last Admin: 07/29/17 12:47 Dose: 200 mls/hr Insulin Aspart (Novolog) 0 unit SUBCUT ASDIRECTED MEL PRN Reason: Protocol Non-Formulary Medication (Phenazopyridine Hcl) 200 mg PO Q8H [facility] Potassium Chloride (Klor-Con M20) 20 meq PO Q3H [facility] Stop: 07/29/17 11:01 Last Admin: 07/29/17 10:57 Dose: 20 meq - Exam General: Alert, Oriented, Cooperative, No Acute Distress HEENT: Pupils Equal, Pupils Reactive, EOMI, Mucous Membr. Moist/[place] Neck: Supple, Trachea Midline, No JVD, No Thyromegaly Lungs: Clear to Auscultation, Normal Respiratory Effort Cardiovascular: Regular Rate, Regular Rhythm GI/Abdominal Exam: Normal Bowel Sounds, Soft, Non-Tender, No Organomegaly, No Distention, No Abnormal Bruit, No Mass, Pelvis Stable (Male) Exam: Other (indwelling andino catheter with pinkish colored urine in bag) Back Exam: Normal Inspection, Decreased Range of Motion Extremities: Normal Inspection, Normal Range of Motion, Non-Tender, No Pedal Edema, Normal Capillary Refill Peripheral Pulses: 2+: Dorsalis Pedis (L), Dorsalis Pedis (R) Skin: Warm, Dry, Intact Neurological: No New Focal Deficit Psy/Mental Status: Alert, Normal Affect, Normal Mood - Problem List Review Problem List Initiated/Reviewed/Updated: Yes - My Orders Last 24 Hours: My Active Orders 07/29/17 06:57 Height and Weight [RC] 04 Intake and Output [RC] Q4HR Up With Assistance [RC] ASDIRECTED Up ad [place] [RC] ASDIRECTED VTE/DVT Education [RC] PER UNIT ROUTINE Acetaminophen [Tylenol] 650 mg PO Q4H PRN Albuterol/Ipratropium [DuoNeb 3.0-0.5 MG/3 ML] 3 ml NEB Q4H PRN Bisacodyl [Dulcolax] 5 mg PO DAILY PRN Docusate Sodium [Colace] 100 mg PO BID PRN Ondansetron [Zofran] 4 mg IV Q6H PRN Promethazine [Phenergan] 12.5 mg Sodium Chloride 0.9% [Normal Saline] 50 ml IV Q6H oxyCODONE 5 mg PO Q4H PRN 07/29/17 06:58 Sequential Compression Device [OM.PC] Per Unit Routine 07/29/17 06:59 Antiembolic Devices [RC] 10,22 Vital Signs [RC] Q4HR 07/29/17 07:00 Consult to Case Management [CONS] Routine Consult to Complaint Investigator [CONS] Routine Consult to Spiritual Care [CONS] Routine OT Evaluation and Treatment [CONS] Routine PT Evaluation and Treatment [CONS] Routine 07/29/17 07:01 Bladder Irrigation [RC] Q4HR 07/29/17 07:05 Metoprolol Tartrate [Lopressor] 5 mg IVPUSH Q4H PRN hydrALAZINE [Apresoline] 20 mg IVPUSH Q4H PRN 07/29/17 07:06 Benzocaine [Hurricaine 20% [place]] 15 ml MUCMEM Q4HR PRN Benzocaine/Cetylpyrd/Menthol [Cepacol Sore Throat] 1 lozenge MUCMEM Q4HR PRN 07/29/17 07:09 Temazepam [Restoril] 30 mg PO BEDTIME PRN 07/29/17 07:10 LORazepam [Ativan] 0.5 mg IVPUSH Q4H PRN 07/29/17 07:15 Magnesium Rep Pharmacy to Dose [Pharmacy to Dose - Magnesium Replacement] 0 dose .XX ASDIRECTED PRN Potassium Rep Pharmacy to Dose [Pharmacy to Dose - Potassium Replacement] 0 dose .XX ASDIRECTED PRN 07/29/17 09:00 Ascorbic Acid [Vitamin C] 500 mg PO BID Calcium Carbonate/Vitamin D3 [Calcium Carbonate/Vitamin D 1500 MG-200 Unit] 1 tab PO BID Cyclobenzaprine [Flexeril] 5 mg PO TID Docusate Sodium/Sennosides [Senna Plus] 1 tab PO BID Ferrous Sulfate 325 mg PO BID Losartan [Cozaar] 50 mg PO DAILY Metoprolol Succinate [Toprol XL] 100 mg PO DAILY Polyethylene Glycol 3350 [MiraLAX] 17 gm PO DAILY Tamsulosin [Flomax] 0.4 mg PO DAILY amLODIPine [Norvasc] 5 mg PO DAILY cloNIDine [Catapres] 0.1 mg PO DAILY 07/29/17 12:08 Benzonatate [Tessalon Perles] 200 mg PO TID PRN 07/29/17 12:09 Indomethacin [Indocin] 25 mg PO DAILY PRN 07/29/17 21:00 Mirtazapine [Remeron] 15 mg PO BEDTIME 07/29/17 22:50 Blood Glucose Check, Bedside [RC] Dextrose 50% in Water 50 ml IVPUSH ASDIRECTED PRN 07/29/17 Breakfast Regular Diet [DIET] 07/30/17 07:00 Insulin Aspart [NovoLOG] See Protocol SUBCUT 07/30/17 09:00 Allopurinol [Zyloprim] 150 mg PO MoWeFr@0900 Famotidine [Pepcid] 20 mg PO BID Ferrous Sulfate 325 mg PO DAILY Nicotine [Habitrol] DOSE UNIT RTE FREQ cefTRIAXone [Rocephin] 1 gm Sodium Chloride 0.9% [Normal Saline] 100 ml IV Q24H 07/31/17 05:11 BASIC METABOLIC PANEL,BMP [CHEM] AM CBC WITH AUTO DIFF [HEME] AM MAGNESIUM [CHEM] AM 08/01/17 05:11 BASIC METABOLIC PANEL,BMP [CHEM] AM CBC WITH AUTO DIFF [HEME] AM MAGNESIUM [CHEM] AM 08/02/17 05:11 BASIC METABOLIC PANEL,BMP [CHEM] AM CBC WITH AUTO DIFF [HEME] AM MAGNESIUM [CHEM] AM 08/03/17 05:11 BASIC METABOLIC PANEL,BMP [CHEM] AM - Plan Plan:: Assessment/Plan: Acute: Hemorrhagic Cystitis, Improved - Pinkish colored - Has hematuria, dysuria and hemorrhage - Likely post radiation; has completed [address] Peralta - Risk factors: hx/o prostate cancer s/p turp, chronic hematuria - No hx/o cyclophosphamide/ifosphamide use - UA positive for E. faecalis and coli - He had bladder irrigation but not cauterization last week in [place] - He continues to have hematuria with clots - He is only on ASA - He follows Dr. Crisostomo and was told to go to [facility] - Plan: Set up appointment to [facility], Avoid ASA and any anticogs, Monitor H/H and Bladder Irrigation Q shift Complicated Cystitis - Has hematuria with hx/o prostate cancer s/p trup and radiation therapy - UA on 07/25/2017 pos for E, coli and faecalis sensitive - Continue IV Rocephin daily Anemia, Stable - Acute on Chronic - 2/2 Hematuria - Hgb this am is 8.6--> now 9.0 - He is hemodynamically stable - Follow up H/H this afternoon - Continue oral iron pills Pharyngitis, Improved - Likely Viral - He is negative for influenza and rapid strep - He mild erythema but w/o exudate or edema - Q4 PRN Cepacol and Benzocaine spray Chronic: Impaired Vision HTN, Stable DM2, Accu-check AM/HS with ISS GERD, H2B Back Pain, PRN pain meds Gout, Allopurinol and Indomethacin Nicotine Dependence, Nicotine Patch Hx/o Brain Injury Hx/o Prostate cancer S/p TURP and Radiation Therapy Plan: He is clinically stable Routine AM Labs Continue current treatment Continue PT/OT consult Awaiting charts from [facility] DVT/GI PPx: H2B and SCDs; anticoags contraindicated due to hematuria SW/CM for d/c planning and to help to set up [facility] appointment Additional orders as above Code status: 1 Discussed Vibra placement for him so he can still get bladder irrigation and intravenous antibiotic while waiting for his scheduled appointment in [facility]. Patient receptive and agreed to the discharge care plan. SW/CM will help out in getting this done.
[2017-07-30] MEDS: metFORMIN 500 MG Tab PO SCH ×2 (08:59→17:34)
[2017-07-30] MEDS: Tamsulosin 0.4 MG Cap.ER PO SCH (08:59)
[2017-07-30] MEDS: Calcium Carbonate/Vitamin D3 1500 MG-200 Units Tab PO SCH ×2 (08:59→21:34)
[2017-07-30] MEDS: Losartan 25 MG Tab PO SCH (08:59)
[2017-07-30] MEDS: Cyclobenzaprine 10 MG Tab PO SCH ×3 (09:02→21:35)
[2017-07-30] MEDS: Ferrous Sulfate 325 MG Tab PO SCH ×2 (09:04→20:07)
[2017-07-30] MEDS: Allopurinol 300 MG Tab PO SCH (09:05)
[2017-07-30] MEDS: Ascorbic Acid 500 MG Tab PO SCH ×2 (09:05→21:34)
[2017-07-30] MEDS: Famotidine 20 MG Tab PO SCH ×2 (09:05→21:34)
[2017-07-30] MEDS: Polyethylene Glycol 3350 Powder 17 GM Packet PO SCH ×2 (09:08→09:21)
[2017-07-30] MEDS: cefTRIAXone 1 GM in Sodium Chloride 0.9% 100 ML IV SCH (09:08)
[2017-07-30] MEDS: Metoprolol Succinate 50 MG Tab.ER PO SCH (09:15)
[2017-07-30] MEDS: amLODIPine 5 MG Tab PO SCH (09:15)
[2017-07-30] MEDS: cloNIDine 0.1 MG Tab PO SCH (09:15)
[2017-07-30] MEDS: Insulin Aspart 100 Units/ML 3 ML Pen SUBCUT SCH ×2 (09:30→17:37)
[2017-07-30] MEDS: oxyCODONE 5 MG Tab PO PRN (12:19)
[2017-07-30] MEDS: Magnesium Sulfate/Water 2 GM in Premix Bag 1 BAG IV SCH ×2 (12:20→14:49)
[2017-07-30] MEDS ORDERED: Sodium Chloride 0.9% 1,000 ML IRR PRN (15:34)
[2017-07-30] MEDS: Mirtazapine 15 MG Tab PO SCH (21:35)
[2017-07-31] MEDS: hydrALAZINE 20 MG/ML SDV IVPUSH PRN ×2 (00:02→05:58)
[2017-07-31] MEDS: Sodium Chloride 0.9% 1,000 ML IV SCH ×3 (05:34→20:53)
[2017-07-31] MEDS: metFORMIN 500 MG Tab PO SCH ×2 (06:54→18:11)
[2017-07-31] MEDS: oxyCODONE 5 MG Tab PO PRN (06:54)
[2017-07-31] MEDS: Calcium Carbonate/Vitamin D3 1500 MG-200 Units Tab PO SCH ×2 (08:07→20:42)
[2017-07-31] MEDS: Ascorbic Acid 500 MG Tab PO SCH ×2 (08:08→20:44)
[2017-07-31] MEDS: amLODIPine 5 MG Tab PO SCH (08:09)
[2017-07-31] MEDS: Losartan 25 MG Tab PO SCH (08:14)
[2017-07-31] MEDS: Tamsulosin 0.4 MG Cap.ER PO SCH (08:15)
[2017-07-31] MEDS: cloNIDine 0.1 MG Tab PO SCH ×2 (08:15→20:44)
[2017-07-31] MEDS: Metoprolol Succinate 50 MG Tab.ER PO SCH (08:16)
[2017-07-31] MEDS: Cyclobenzaprine 10 MG Tab PO SCH ×3 (08:17→20:43)
[2017-07-31] MEDS: Ferrous Sulfate 325 MG Tab PO SCH (08:18)
[2017-07-31] MEDS: Benzocaine 20% Oral Spray 59.2 ML Canister MUCMEM PRN (08:19)
[2017-07-31] MEDS: cefTRIAXone 1 GM in Sodium Chloride 0.9% 100 ML IV SCH (08:19)
[2017-07-31] MEDS: Insulin Aspart 100 Units/ML 3 ML Pen SUBCUT SCH ×2 (08:20→18:11)
--- NOTE | 2017-07-31 08:55 | PCM.PN ---
<Italia Gao - Last Filed: 07/31/17 08:45> - General Info Date of Service: 07/31/17 Admission Dx/Problem (Free Text): Admission Diagnosis/Problem Admission Diagnosis/Problem Hematuria Subjective Update: Follow Up Functional Status: Reports: Pain Controlled, Tolerating Diet - Review of Systems General: Reports: No Symptoms HEENT: Reports: No Symptoms Pulmonary: Reports: Cough Cardiovascular: Reports: No Symptoms Gastrointestinal: Reports: No Symptoms Genitourinary: Reports: Burning (Mainly at the tip of the penis, due to catheter ), Hematuria Musculoskeletal: Reports: No Symptoms Skin: Reports: No Symptoms Neurological: Reports: No Symptoms Psychiatric: Reports: No Symptoms - Patient Data Vitals - Most Recent: Last Vital Signs Temp 98.4 F 07/31/17 05:37 Pulse 109 H 07/31/17 08:16 Resp 18 07/31/17 05:37 BP 149/77 H 07/31/17 08:16 Pulse Ox 94 L 07/31/17 05:45 Weight - Most Recent: 114.668 kg I&O - Last 24 Hours: Intake & Output 07/30/17 07/31/17 07/31/17 22:59 06:59 14:59 Intake Total 1905717 2109 Output Total 1868 1253 Balance 2077 -112 Lab Results Last 24 Hours: Laboratory Results - last 24 hr 07/30/17 07/30/17 07/31/17 Range/Units 06:50 16:48 05:37 WBC 7.91 (4.23-9.07) K/mm3 RBC 2.65 L (4.63-6.08) M/mm3 Hgb 8.2 L (13.7-17.5) gm/L Hct 25.4 L (40.1-51.0) % MCV 95.8 H (79.0-92.2) fl MCH 30.9 (25.7-32.2) pg MCHC 32.3 (32.2-35.5) g/dl RDW Std Deviation 42.8 (35.1-43.9) fL Plt Count 437 H (163-337) K/mm3 MPV 9.5 (9.4-12.3) fl Neut % (Auto) 71.7 H (34.0-67.9) % Lymph % (Auto) 9.5 L (21.8-53.1) % [place] % (Auto) 11.3 (5.3-12.2) % Eos % (Auto) 5.1 (0.8-7.0) Baso % (Auto) 0.8 (0.1-1.2) % Neut # (Auto) 5.68 H (1.78-5.38) K/mm3 Lymph # (Auto) 0.75 L (1.32-3.57) K/mm3 [place] # (Auto) 0.89 H (0.30-0.82) K/mm3 Eos # (Auto) 0.40 (0.04-0.54) K/mm3 Baso # (Auto) 0.06 (0.01-0.08) K/mm3 Manual Slide Review Abnormal smear Sodium (136-145) mEq/L Potassium (3.5-5.1) mEq/L Chloride (98-107) mEq/L Carbon Dioxide (21-32) mEq/L Anion Gap (5-15) BUN (7-18) mg/dL Creatinine (0.7-1.3) mg/dL Est Cr Clr Drug Dosing mL/min Estimated GFR (MDRD) (>60) mL/min BUN/Creatinine Ratio (14-18) Glucose (74-106) mg/dL POC Glucose 197 H 200 H (70-105) mg/dL Calcium (8.5-10.1) mg/dL Magnesium (1.8-2.4) mg/dl 07/31/17 07/31/17 Range/Units 05:37 08:00 WBC (4.23-9.07) K/mm3 RBC (4.63-6.08) M/mm3 Hgb (13.7-17.5) gm/L Hct (40.1-51.0) % MCV (79.0-92.2) fl MCH (25.7-32.2) pg MCHC (32.2-35.5) g/dl RDW Std Deviation (35.1-43.9) fL Plt Count (163-337) K/mm3 MPV (9.4-12.3) fl Neut % (Auto) (34.0-67.9) % Lymph % (Auto) (21.8-53.1) % [place] % (Auto) (5.3-12.2) % Eos % (Auto) (0.8-7.0) Baso % (Auto) (0.1-1.2) % Neut # (Auto) (1.78-5.38) K/mm3 Lymph # (Auto) (1.32-3.57) K/mm3 [place] # (Auto) (0.30-0.82) K/mm3 Eos # (Auto) (0.04-0.54) K/mm3 Baso # (Auto) (0.01-0.08) K/mm3 Manual Slide Review Sodium 137 (136-145) mEq/L Potassium 3.2 L (3.5-5.1) mEq/L Chloride 103 (98-107) mEq/L Carbon Dioxide 21 (21-32) mEq/L Anion Gap 16.2 H (5-15) BUN 6 L (7-18) mg/dL Creatinine 0.6 L (0.7-1.3) mg/dL Est Cr Clr Drug Dosing 156.48 mL/min Estimated GFR (MDRD) > 60 (>60) mL/min BUN/Creatinine Ratio 10.0 L (14-18) Glucose 173 H (74-106) mg/dL POC Glucose 176 H (70-105) mg/dL Calcium 8.5 (8.5-10.1) mg/dL Magnesium 1.3 L (1.8-2.4) mg/dl [place] Results Last 24 Hours: Microbiology 07/29/17 06:45 Quick Strep Confirmation Culture - Final Throat NEGATIVE FOR BETA STREP Group A Streptococcus Rapid Screen - Final NEGATIVE STREP A SCREEN Med Orders - Current: Current Medications Acetaminophen (Tylenol) 650 mg PO Q4H PRN PRN Reason: Pain (Mild 1-3)/fever Albuterol/Ipratropium (Duoneb 3.0-0.5 Mg/3 Ml) 3 ml NEB Q4H PRN PRN Reason: Shortness Of Breath/wheezing Last Admin: 07/30/17 23:59 Dose: 3 ml Allopurinol (Zyloprim) 150 mg PO MoWeFr@0900 [facility] Last Admin: 07/30/17 09:05 Dose: 150 mg Amlodipine Besylate (Norvasc) 5 mg PO DAILY [facility] Last Admin: 07/31/17 08:09 Dose: 5 mg Ascorbic Acid (Vitamin C) 500 mg PO BID [facility] Last Admin: 07/31/17 08:08 Dose: 500 mg Benzocaine (Hurricaine 20% [place]) 15 ml MUCMEM Q4HR PRN PRN Reason: Sore Throat Last Admin: 07/31/17 08:19 Dose: 1 dose Benzocaine/Menthol (Cepacol Sore Throat) 1 lozenge MUCMEM Q4HR PRN PRN Reason: Sore Throat Last Admin: 07/30/17 22:37 Dose: 1 lozenge Benzonatate (Tessalon Perles) 200 mg PO TID PRN PRN Reason: Cough Last Admin: 07/30/17 09:14 Dose: 200 mg Bisacodyl (Dulcolax) 5 mg PO DAILY PRN PRN Reason: Constipation Calcium Carbonate (Calcium Carbonate/Vitamin D 1500 Mg-200 Unit) 1 tab PO BID [facility] Last Admin: 07/31/17 08:07 Dose: 1 tab Clonidine HCl (Catapres) 0.1 mg PO DAILY [facility] Last Admin: 07/31/17 08:15 Dose: 0.1 mg Cyclobenzaprine HCl (Flexeril) 5 mg PO TID [facility] Last Admin: 07/31/17 08:17 Dose: 5 mg Dextrose/Water (Dextrose 50% In Water) 50 ml IVPUSH ASDIRECTED PRN PRN Reason: Hypoglycemia Docusate Sodium (Colace) 100 mg PO BID PRN PRN Reason: Constipation Last Admin: 07/30/17 05:43 Dose: 100 mg Famotidine (Pepcid) 20 mg PO BID [facility] Last Admin: 07/30/17 21:34 Dose: 20 mg Ferrous Sulfate (Ferrous Sulfate) 325 mg PO DAILY [facility] Last Admin: 07/31/17 08:18 Dose: 325 mg Guaifenesin/Phenylephrine HCl (Robitussin Dm) 10 ml PO Q4H PRN PRN Reason: Cough Last Admin: 07/30/17 12:20 Dose: 10 ml Hydralazine HCl (Apresoline) 20 mg IVPUSH Q4H PRN PRN Reason: Hypertension Last Admin: 07/31/17 05:58 Dose: 20 mg Hydromorphone HCl (Dilaudid) 0.5 mg IVPUSH Q2H PRN PRN Reason: Pain Last Admin: 07/29/17 03:06 Dose: 0.5 mg Sodium Chloride (Normal Saline) 1,000 mls @ 125 mls/hr IV ASDIRECTED [facility] Last Admin: 07/31/17 05:34 Dose: 125 mls/hr Promethazine HCl 12.5 mg/ (Sodium Chloride) 50.5 mls @ 100 mls/hr IV Q6H PRN PRN Reason: Nausea/Vomiting Ceftriaxone Sodium 1 gm/ (Sodium Chloride) 100 mls @ 200 mls/hr IV Q24H [facility] Last Admin: 07/31/17 08:19 Dose: 200 mls/hr Sodium Chloride (Normal Saline) 1,000 mls @ 166.667 mls/hr IRR Q6H PRN PRN Reason: FOR CONTINUOUS BLADDER IRRIGAT Indomethacin (Indocin) 25 mg PO DAILY PRN PRN Reason: Pain (moderate 4-6) Insulin Aspart (Novolog) 0 unit SUBCUT [facility] PRN Reason: Protocol Last Admin: 07/31/17 08:20 Dose: 1 units Lorazepam (Ativan) 0.5 mg IVPUSH Q4H PRN PRN Reason: Anxiety Losartan Potassium (Cozaar) 50 mg PO DAILY [facility] Last Admin: 07/31/17 08:14 Dose: 50 mg Magnesium Sulfate (Pharmacy To Dose - Magnesium Replacement) 0 dose .XX ASDIRECTED PRN PRN Reason: RX TO WATCH MAG LEVELS Metformin HCl (Glucophage) 1,000 mg PO BIDMEALS [facility] Last Admin: 07/31/17 06:54 Dose: 1,000 mg Metoprolol Succinate (Toprol Xl) 100 mg PO DAILY [facility] Last Admin: 07/31/17 08:16 Dose: 100 mg Metoprolol Tartrate (Lopressor) 5 mg IVPUSH Q4H PRN PRN Reason: Tachycardia Mirtazapine (Remeron) 15 mg PO BEDTIME [facility] Last Admin: 07/30/17 21:35 Dose: 15 mg Ondansetron HCl (Zofran) 4 mg IV Q6H PRN PRN Reason: Nausea/Vomiting Oxybutynin Chloride (Oxybutynin) 5 mg PO BID PRN PRN Reason: Other Last Admin: 07/29/17 11:34 Dose: 5 mg Oxycodone HCl (Oxycodone) 5 mg PO Q4H PRN PRN Reason: Pain (moderate 4-6) Last Admin: 07/31/17 06:54 Dose: 5 mg Polyethylene Glycol (Miralax) 17 gm PO DAILY [facility] Last Admin: 07/30/17 09:21 Dose: Not Given Potassium Chloride (Pharmacy To Dose - Potassium Replacement) 0 dose .XX ASDIRECTED PRN PRN Reason: RX TO WATCH K LEVELS Senna/Docusate Sodium (Senna Plus) 1 tab PO BID [facility] Last Admin: 07/31/17 08:15 Dose: 1 tab Tamsulosin HCl (Flomax) 0.4 mg PO DAILY [facility] Last Admin: 07/31/17 08:15 Dose: 0.4 mg Temazepam (Restoril) 30 mg PO BEDTIME PRN PRN Reason: Insomnia Last Admin: 07/30/17 21:34 Dose: 30 mg Discontinued Medications Benzonatate (Tessalon Perles) 100 mg PO TID PRN PRN Reason: Cough Last Admin: 07/29/17 11:33 Dose: 100 mg Ferrous Sulfate (Ferrous Sulfate) 325 mg PO BID [facility] Last Admin: 07/30/17 09:04 Dose: 325 mg Ceftriaxone Sodium 2 gm/ (Sodium Chloride) 100 mls @ 200 mls/hr IV ONETIME ONE Stop: 07/29/17 12:36 Last Admin: 07/29/17 12:47 Dose: 200 mls/hr Magnesium Sulfate 2 gm/ Premix 50 mls @ 25 mls/hr IV Q2H [facility] Stop: 07/30/17 15:29 Last Admin: 07/30/17 14:49 Dose: 25 mls/hr Insulin Aspart (Novolog) 0 unit SUBCUT ASDIRECTED [facility] PRN Reason: Protocol Non-Formulary Medication (Phenazopyridine Hcl) 200 mg PO Q8H [facility] Potassium Chloride (Klor-Con M20) 20 meq PO Q3H [facility] Stop: 07/29/17 11:01 Last Admin: 07/29/17 10:57 Dose: 20 meq - Exam General: Alert, Oriented, Cooperative, No Acute Distress HEENT: Pupils Equal, Pupils Reactive, EOMI, Mucous Membr. Moist/[place] Neck: Supple Lungs: Clear to Auscultation, Normal Respiratory Effort Cardiovascular: Regular Rate, Regular Rhythm GI/Abdominal Exam: Non-Tender, No Organomegaly, No Abnormal Bruit, No Mass, Rigid (Male) Exam: Deferred Back Exam: Normal Inspection, Full Range of Motion Extremities: Normal Inspection, Normal Range of Motion, Non-Tender, No Pedal Edema, Normal Capillary Refill Skin: Warm, Dry, Intact Neurological: No New Focal Deficit Psy/Mental Status: Alert, Normal Affect, Normal Mood - Assessment Assessment:: Patient is a 62 yo cauc[place] male that was admitted for hematuria. He said he didn't sleep well last night due to his cough, but says the cough is getting better. The patient has no other complaints. Catheter drainage is still producing a light red urine. Physical exam is unremarkable. - Plan Plan:: Assessment/Plan: Acute: Hemorrhagic Cystitis, Improved - Pinkish colored - Has hematuria, dysuria and hemorrhage - Likely post radiation; has completed [address] session [address] Peralta - Risk factors: hx/o prostate cancer s/p turp, chronic hematuria - No hx/o cyclophosphamide/ifosphamide use - UA positive for E. faecalis and coli - He had bladder irrigation but not cauterization last week in [place] - He continues to have hematuria with clots - He is only on ASA - He follows Dr. Crisostomo and was told to go to [facility] - Plan: Set up appointment to [facility], Avoid ASA and any anticogs, Monitor H/H and Bladder Irrigation Q shift Complicated Cystitis - Has hematuria with hx/o prostate cancer s/p trup and radiation therapy - UA on 07/25/2017 pos for E, coli and faecalis sensitive - Continue IV Rocephin daily Anemia, Stable - Acute on Chronic - 2/2 Hematuria - Hgb went from 9.0-->8.2 - He is hemodynamically stable - Follow up H/H this afternoon - Continue oral iron pills Pharyngitis, Improved - Likely Viral - He is negative for influenza and rapid strep - He mild erythema but w/o exudate or edema - Q4 PRN Cepacol and Benzocaine spray Chronic: Impaired Vision HTN, Stable DM2, Accu-check AM/HS with ISS GERD, H2B Back Pain, PRN pain meds Gout, Allopurinol and Indomethacin Nicotine Dependence, Nicotine Patch Hx/o Brain Injury Hx/o Prostate cancer S/p TURP and Radiation Therapy Plan: He is clinically stable Routine AM Labs Continue current treatment Continue PT/OT consult Awaiting charts from [facility] DVT/GI PPx: H2B and SCDs; anticoags contraindicated due to hematuria SW/CM for d/c planning and to help to set up [facility] appointment Additional orders as above Code status: 1 Discussed [facility] placement for him so he can still get bladder irrigation and intravenous antibiotic while waiting for his scheduled appointment in [facility]. Patient receptive and agreed to the discharge care plan. SW/CM will help out in getting this done. <ZoltanjuanChaimcameron T - Last Filed: 07/31/17 21:08> - General Info Subjective Update: Follow Up Functional Status: Reports: Pain Controlled, Tolerating Diet, Urinating. Denies : New Symptoms - Review of Systems General: Reports: Fever, Weakness, Fatigue, Malaise, Chills HEENT: Reports: No Symptoms Pulmonary: Denies: Shortness of Breath Cardiovascular: Denies: Palpitations, Dyspnea on Exertion, Edema, Lightheadedness Gastrointestinal: Denies: Abdominal Pain, Nausea, Vomiting Genitourinary: Reports: Burning, Hematuria. Denies: Flank Pain Musculoskeletal: Reports: No Symptoms Skin: Denies: Cyanosis, Mottled, Pallor, Diaphoresis, Pruritis Neurological: Reports: Gait Disturbance. Denies: Confusion, Difficulty Walking , Weakness Psychiatric: Denies: Depression, Mood Lability, Agitation, Cravings Systems Review Comment:: No significant overnight issues. He is making more clots than usual. His urine in his andino bag is more dark-reddish colored today compared to yesterday. He no no fever and remains w/o leukocytosis. He reports on and off bladder spasm. His Hgb is slightly lower today at 8.2. He has no other new complaints. - Patient Data Vitals - Most Recent: Last Vital Signs Temp 36.4 C 07/31/17 16:37 Pulse 96 07/31/17 16:37 Resp 19 07/31/17 16:37 BP 98/69 07/31/17 16:37 Pulse Ox 96 07/31/17 16:37 I&O - Last 24 Hours: Intake & Output 07/31/17 07/31/17 07/31/17 06:59 14:59 22:59 Intake Total 6763 5800 14922 Output Total 7685 6081 3947 Balance -205 182 2342 Lab Results Last 24 Hours: Laboratory Results - last 24 hr 07/31/17 07/31/17 07/31/17 Range/Units 05:37 05:37 08:00 WBC 7.91 (4.23-9.07) K/mm3 RBC 2.65 L (4.63-6.08) M/mm3 Hgb 8.2 L (13.7-17.5) gm/L Hct 25.4 L (40.1-51.0) % MCV 95.8 H (79.0-92.2) fl MCH 30.9 (25.7-32.2) pg MCHC 32.3 (32.2-35.5) g/dl RDW Std Deviation 42.8 (35.1-43.9) fL Plt Count 437 H (163-337) K/mm3 MPV 9.5 (9.4-12.3) fl Neut % (Auto) 71.7 H (34.0-67.9) % Lymph % (Auto) 9.5 L (21.8-53.1) % [place] % (Auto) 11.3 (5.3-12.2) % Eos % (Auto) 5.1 (0.8-7.0) Baso % (Auto) 0.8 (0.1-1.2) % Neut # (Auto) 5.68 H (1.78-5.38) K/mm3 Lymph # (Auto) 0.75 L (1.32-3.57) K/mm3 [place] # (Auto) 0.89 H (0.30-0.82) K/mm3 Eos # (Auto) 0.40 (0.04-0.54) K/mm3 Baso # (Auto) 0.06 (0.01-0.08) K/mm3 Manual Slide Review Abnormal smear Sodium 137 (136-145) mEq/L Potassium 3.2 L (3.5-5.1) mEq/L Chloride 103 (98-107) mEq/L Carbon Dioxide 21 (21-32) mEq/L Anion Gap 16.2 H (5-15) BUN 6 L (7-18) mg/dL Creatinine 0.6 L (0.7-1.3) mg/dL Est Cr Clr Drug Dosing 156.48 mL/min Estimated GFR (MDRD) > 60 (>60) mL/min BUN/Creatinine Ratio 10.0 L (14-18) Glucose 173 H (74-106) mg/dL POC Glucose 176 H (70-105) mg/dL Calcium 8.5 (8.5-10.1) mg/dL Magnesium 1.3 L (1.8-2.4) mg/dl 07/31/17 Range/Units 17:04 WBC (4.23-9.07) K/mm3 RBC (4.63-6.08) M/mm3 Hgb (13.7-17.5) gm/L Hct (40.1-51.0) % MCV (79.0-92.2) fl MCH (25.7-32.2) pg MCHC (32.2-35.5) g/dl RDW Std Deviation (35.1-43.9) fL Plt Count (163-337) K/mm3 MPV (9.4-12.3) fl Neut % (Auto) (34.0-67.9) % Lymph % (Auto) (21.8-53.1) % [place] % (Auto) (5.3-12.2) % Eos % (Auto) (0.8-7.0) Baso % (Auto) (0.1-1.2) % Neut # (Auto) (1.78-5.38) K/mm3 Lymph # (Auto) (1.32-3.57) K/mm3 [place] # (Auto) (0.30-0.82) K/mm3 Eos # (Auto) (0.04-0.54) K/mm3 Baso # (Auto) (0.01-0.08) K/mm3 Manual Slide Review Sodium (136-145) mEq/L Potassium (3.5-5.1) mEq/L Chloride (98-107) mEq/L Carbon Dioxide (21-32) mEq/L Anion Gap (5-15) BUN (7-18) mg/dL Creatinine (0.7-1.3) mg/dL Est Cr Clr Drug Dosing mL/min Estimated GFR (MDRD) (>60) mL/min BUN/Creatinine Ratio (14-18) Glucose (74-106) mg/dL POC Glucose 267 H (70-105) mg/dL Calcium (8.5-10.1) mg/dL Magnesium (1.8-2.4) mg/dl Med Orders - Current: Current Medications Acetaminophen (Tylenol) 650 mg PO Q4H PRN PRN Reason: Pain (Mild 1-3)/fever Albuterol/Ipratropium (Duoneb 3.0-0.5 Mg/3 Ml) 3 ml NEB Q4H PRN PRN Reason: Shortness Of Breath/wheezing Last Admin: 07/30/17 23:59 Dose: 3 ml Allopurinol (Zyloprim) 150 mg PO MoWeFr@0900 [facility] Last Admin: 07/30/17 09:05 Dose: 150 mg Amlodipine Besylate (Norvasc) 5 mg PO DAILY [facility] Last Admin: 07/31/17 08:09 Dose: 5 mg Ascorbic Acid (Vitamin C) 500 mg PO BID [facility] Last Admin: 07/31/17 08:08 Dose: 500 mg Benzocaine (Hurricaine 20% [place]) 15 ml MUCMEM Q4HR PRN PRN Reason: Sore Throat Last Admin: 07/31/17 08:19 Dose: 1 dose Benzocaine/Menthol (Cepacol Sore Throat) 1 lozenge MUCMEM Q4HR PRN PRN Reason: Sore Throat Last Admin: 07/31/17 13:51 Dose: 1 lozenge Benzonatate (Tessalon Perles) 200 mg PO TID PRN PRN Reason: Cough Last Admin: 07/31/17 15:47 Dose: 200 mg Bisacodyl (Dulcolax) 5 mg PO DAILY PRN PRN Reason: Constipation Calcium Carbonate (Calcium Carbonate/Vitamin D 1500 Mg-200 Unit) 1 tab PO BID [facility] Last Admin: 07/31/17 08:07 Dose: 1 tab Cephalexin (Keflex) 500 mg PO Q12H [facility] Clonidine HCl (Catapres) 0.1 mg PO Q12HR [facility] Cyclobenzaprine HCl (Flexeril) 5 mg PO TID [facility] Last Admin: 07/31/17 18:11 Dose: 5 mg Dextrose/Water (Dextrose 50% In Water) 50 ml IVPUSH ASDIRECTED PRN PRN Reason: Hypoglycemia Docusate Sodium (Colace) 100 mg PO BID PRN PRN Reason: Constipation Last Admin: 07/30/17 05:43 Dose: 100 mg Famotidine (Pepcid) 20 mg PO BID [facility] Last Admin: 07/31/17 09:59 Dose: 20 mg Ferrous Sulfate (Ferrous Sulfate) 325 mg PO DAILY [facility] Last Admin: 07/31/17 08:18 Dose: 325 mg Guaifenesin/Phenylephrine HCl (Robitussin Dm) 10 ml PO Q4H PRN PRN Reason: Cough Last Admin: 07/30/17 12:20 Dose: 10 ml Hydralazine HCl (Apresoline) 20 mg IVPUSH Q4H PRN PRN Reason: Hypertension Last Admin: 07/31/17 05:58 Dose: 20 mg Hydrochlorothiazide (Hydrochlorothiazide) 12.5 mg PO BIDDIURETIC [facility] Last Admin: 07/31/17 13:35 Dose: 12.5 mg Hydromorphone HCl (Dilaudid) 0.5 mg IVPUSH Q2H PRN PRN Reason: Pain Last Admin: 07/29/17 03:06 Dose: 0.5 mg Sodium Chloride (Normal Saline) 1,000 mls @ 125 mls/hr IV ASDIRECTED [facility] Last Admin: 07/31/17 13:37 Dose: 125 mls/hr Promethazine HCl 12.5 mg/ (Sodium Chloride) 50.5 mls @ 100 mls/hr IV Q6H PRN PRN Reason: Nausea/Vomiting Sodium Chloride (Normal Saline) 1,000 mls @ 166.667 mls/hr IRR Q6H PRN PRN Reason: FOR CONTINUOUS BLADDER IRRIGAT Indomethacin (Indocin) 25 mg PO DAILY PRN PRN Reason: Pain (moderate 4-6) Last Admin: 07/31/17 15:47 Dose: 25 mg Insulin Aspart (Novolog) 0 unit SUBCUT [facility] PRN Reason: Protocol Last Admin: 07/31/17 18:11 Dose: 3 units Lorazepam (Ativan) 0.5 mg IVPUSH Q4H PRN PRN Reason: Anxiety Last Admin: 07/31/17 15:47 Dose: 0.5 mg Losartan Potassium (Cozaar) 50 mg PO DAILY [facility] Last Admin: 07/31/17 08:14 Dose: 50 mg Magnesium Sulfate (Pharmacy To Dose - Magnesium Replacement) 0 dose .XX ASDIRECTED PRN PRN Reason: RX TO WATCH MAG LEVELS Metformin HCl (Glucophage) 1,000 mg PO BIDMEALS [facility] Last Admin: 07/31/17 18:11 Dose: 1,000 mg Metoprolol Succinate (Toprol Xl) 100 mg PO DAILY [facility] Last Admin: 07/31/17 08:16 Dose: 100 mg Metoprolol Tartrate (Lopressor) 5 mg IVPUSH Q4H PRN PRN Reason: Tachycardia Mirtazapine (Remeron) 15 mg PO BEDTIME [facility] Last Admin: 07/30/17 21:35 Dose: 15 mg Ondansetron HCl (Zofran) 4 mg IV Q6H PRN PRN Reason: Nausea/Vomiting Oxybutynin Chloride (Oxybutynin) 5 mg PO BID PRN PRN Reason: Other Last Admin: 07/29/17 11:34 Dose: 5 mg Oxycodone HCl (Oxycodone) 5 mg PO Q4H PRN PRN Reason: Pain (moderate 4-6) Last Admin: 07/31/17 06:54 Dose: 5 mg Polyethylene Glycol (Miralax) 17 gm PO DAILY [facility] Last Admin: 07/31/17 10:53 Dose: Not Given Potassium Chloride (Pharmacy To Dose - Potassium Replacement) 0 dose .XX ASDIRECTED PRN PRN Reason: RX TO WATCH K LEVELS Senna/Docusate Sodium (Senna Plus) 1 tab PO BID [facility] Last Admin: 07/31/17 08:15 Dose: 1 tab Tamsulosin HCl (Flomax) 0.4 mg PO DAILY [facility] Last Admin: 07/31/17 08:15 Dose: 0.4 mg Temazepam (Restoril) 30 mg PO BEDTIME PRN PRN Reason: Insomnia Last Admin: 07/30/17 21:34 Dose: 30 mg Discontinued Medications Benzonatate (Tessalon Perles) 100 mg PO TID PRN PRN Reason: Cough Last Admin: 07/29/17 11:33 Dose: 100 mg Clonidine HCl (Catapres) 0.1 mg PO DAILY [facility] Last Admin: 07/31/17 08:15 Dose: 0.1 mg Ferrous Sulfate (Ferrous Sulfate) 325 mg PO BID [facility] Last Admin: 07/30/17 09:04 Dose: 325 mg Ceftriaxone Sodium 2 gm/ (Sodium Chloride) 100 mls @ 200 mls/hr IV ONETIME ONE Stop: 07/29/17 12:36 Last Admin: 07/29/17 12:47 Dose: 200 mls/hr Ceftriaxone Sodium 1 gm/ (Sodium Chloride) 100 mls @ 200 mls/hr IV Q24H [facility] Last Admin: 07/31/17 08:19 Dose: 200 mls/hr Magnesium Sulfate 2 gm/ Premix 50 mls @ 25 mls/hr IV Q2H [facility] Stop: 07/30/17 15:29 Last Admin: 07/30/17 14:49 Dose: 25 mls/hr Magnesium Sulfate 2 gm/ Premix 50 mls @ 25 mls/hr IV Q2H [facility] Stop: 07/31/17 12:59 Last Admin: 07/31/17 13:24 Dose: 25 mls/hr Insulin Aspart (Novolog) 0 unit SUBCUT ASDIRECTED [facility] PRN Reason: Protocol Non-Formulary Medication (Phenazopyridine Hcl) 200 mg PO Q8H [facility] Potassium Chloride (Klor-Con M20) 20 meq PO Q3H [facility] Stop: 07/29/17 11:01 Last Admin: 07/29/17 10:57 Dose: 20 meq Potassium Chloride (Klor-Con M20) 40 meq PO ONETIME ONE Stop: 07/31/17 09:01 Last Admin: 07/31/17 10:00 Dose: 40 meq - Exam General: Alert, Oriented, Cooperative, No Acute Distress HEENT: Pupils Equal, Pupils Reactive, EOMI, Mucous Membr. Moist/[place] Neck: Supple, No Thyromegaly Lungs: Clear to Auscultation, Normal Respiratory Effort Cardiovascular: Regular Rate, Regular Rhythm GI/Abdominal Exam: Non-Tender, No Organomegaly, No Abnormal Bruit, No Mass, Rigid Back Exam: Normal Inspection, Full Range of Motion Extremities: Normal Inspection, Normal Range of Motion, Non-Tender, No Pedal Edema, Normal Capillary Refill Peripheral Pulses: 2+: Dorsalis Pedis (L), Dorsalis Pedis (R) Skin: Warm, Dry, Intact Neurological: No New Focal Deficit Psy/Mental Status: Alert, Normal Affect, Normal Mood - Problem List Review Problem List Initiated/Reviewed/Updated: Yes - My Orders Last 24 Hours: My Active Orders 07/31/17 09:00 Hydrochlorothiazide 12.5 mg PO BIDDIURETIC 07/31/17 20:00 Cephalexin [Keflex] 500 mg PO Q12H 07/31/17 21:00 cloNIDine [Catapres] 0.1 mg PO Q12HR 08/01/17 05:11 BASIC METABOLIC PANEL,BMP [CHEM] AM CBC WITH AUTO DIFF [HEME] AM MAGNESIUM [CHEM] AM 08/02/17 05:11 BASIC METABOLIC PANEL,BMP [CHEM] AM CBC WITH AUTO DIFF [HEME] AM MAGNESIUM [CHEM] AM 08/03/17 05:11 BASIC METABOLIC PANEL,BMP [CHEM] AM - Plan Plan:: Assessment/Plan: Acute: Hemorrhagic Cystitis, Worse - Acute on Chronic - Dark-Reddish colored urine with multiple clots - Has hematuria, dysuria and hemorrhage - Likely post radiation; has completed [address] Peralta - Risk factors: hx/o prostate cancer s/p turp, chronic hematuria - No hx/o cyclophosphamide/ifosphamide use - UA positive for E. faecalis and coli - He had bladder irrigation but not cauterization last week in [place] - He continues to have hematuria with clots - He is only on ASA - He follows Dr. Crisostomo and was told to go to [facility] - Plan: Set up appointment to [facility], Avoid ASA and any anticogs, Monitor H/H and Bladder Irrigation Q shift - He continues to have catheter leak (catheter does not fit him well) and has had multiple blood clots - Now it appears his andino catheter is clogged up; bladder scan > at least 300 ml residual urine - He has been having more bladder discomfort Complicated Cystitis - Has hematuria with hx/o prostate cancer s/p trup and radiation therapy - UA on 07/25/2017 pos for E, coli and faecalis sensitive - Continue IV Rocephin daily Anemia, Stable - Acute on Chronic - 2/2 Hematuria - Hgb went from 9.0--> this am 8.2 - He remains hemodynamically stable - Continue oral iron pills - Monitor Hgb level Pharyngitis, Improved - Likely Viral - He is negative for influenza and rapid strep - He mild erythema but w/o exudate or edema - Q4 PRN Cepacol and Benzocaine spray Electrolyte Abnormality - Hypokalemia - K 3.2 - 2/2 inadequate intake - Replete and monitor - Hypomagnesemia - Mg 1.3 - Appears to be chronic - Continue to replete and monitor Chronic: Impaired Vision HTN, Stable DM2, Accu-check AM/HS with ISS GERD, H2B Back Pain, PRN pain meds Gout, Allopurinol and Indomethacin Nicotine Dependence, Nicotine Patch Hx/o Brain Injury Hx/o Prostate cancer S/p TURP and Radiation Therapy Plan: He remains clinically stable but urological statu,s I believe he is getting worse: more spasm, blood clots, and now andino catheter is clogged up. Routine AM Labs Continue current treatment and PT/OT Reviewed charts from [facility]: Dr. Crisostomo recommends for him tog o to [facility]. He has not had an appointment yet. DVT/GI PPx: H2B and SCDs; anticoags contraindicated due to hematuria SW/CM for d/c planning and to help to set up [facility] appointment Additional orders as above Code status: 1 [facility] refused to take him. We are looking at sending him to step down unit but with his worsening urologic status it might be best to attempt to send him to [facility] at this point. We will try to make phone calls. LOS anticipate > 96 hrs pending placement vs transfer for upper level of care.
[2017-07-31] MEDS ORDERED: Potassium Chloride 20 MEQ Tab.ER PO ONE (09:00)
[2017-07-31] MEDS: Hydrochlorothiazide 12.5 MG Cap PO SCH ×2 (09:59→13:35)
[2017-07-31] MEDS: Famotidine 20 MG Tab PO SCH ×2 (09:59→20:44)
[2017-07-31] MEDS: Magnesium Sulfate/Water 2 GM in Premix Bag 1 BAG IV SCH ×2 (10:01→13:24)
[2017-07-31] MEDS: Benzocaine/Cetylpyridinium/Menthol Lozenge MUCMEM PRN ×2 (10:03→13:51)
[2017-07-31] MEDS: Polyethylene Glycol 3350 Powder 17 GM Packet PO SCH (10:53)
[2017-07-31] MEDS: LORazepam 2 MG/ML MDV IVPUSH PRN (15:47)
[2017-07-31] MEDS: Benzonatate 100 MG Cap PO PRN (15:47)
[2017-07-31] MEDS: Mirtazapine 15 MG Tab PO SCH (20:45)
[2017-07-31] MEDS: Cephalexin 500 MG Cap PO SCH (20:45)
--- NOTE | 2017-07-31 21:35 | PCM.SN ---
- Free Text/Narrative Note: Patient has been having more clots, bladder spasms and now his andino catheter appeared to be clogged up. We called [facility] for possible transfer, spoke to Dr. Leary, on-call urologist. After discussing the case with him, he recommended removing the andion catheter and have patient void on his own. If patient is unable to void, to call Dr. Leary back.
[2017-08-01] MEDS: Sodium Chloride 0.9% 1,000 ML IV SCH ×2 (04:59→16:18)
[2017-08-01] MEDS: Docusate Sodium 100 MG Cap PO PRN (06:23)
[2017-08-01] MEDS: metFORMIN 500 MG Tab PO SCH ×2 (06:24→17:46)
[2017-08-01] MEDS: Hydrochlorothiazide 12.5 MG Cap PO SCH ×2 (06:24→14:12)
[2017-08-01] MEDS: Insulin Aspart 100 Units/ML 3 ML Pen SUBCUT SCH ×2 (06:44→22:37)
--- NOTE | 2017-08-01 08:28 | PCM.PN ---
<Italia Gao - Last Filed: 08/01/17 08:18> - General Info Date of Service: 08/01/17 Admission Dx/Problem (Free Text): Admission Diagnosis/Problem Admission Diagnosis/Problem Hematuria Subjective Update: Follow Up Functional Status: Reports: Pain Controlled, Tolerating Diet, Urinating - Review of Systems General: Reports: Fatigue HEENT: Reports: No Symptoms Pulmonary: Reports: No Symptoms Cardiovascular: Reports: No Symptoms Gastrointestinal: Reports: No Symptoms Genitourinary: Reports: Hematuria Musculoskeletal: Reports: No Symptoms Skin: Reports: No Symptoms Neurological: Reports: Dizziness Psychiatric: Reports: Confusion (Patient is oriented to person and place but not with time) - Patient Data Vitals - Most Recent: Last Vital Signs Temp 97.9 F 08/01/17 02:56 Pulse 87 08/01/17 02:56 Resp 16 08/01/17 02:56 BP 137/74 08/01/17 02:57 Pulse Ox 95 08/01/17 02:56 Weight - Most Recent: 114.078 kg I&O - Last 24 Hours: Intake & Output 07/31/17 08/01/17 08/01/17 22:59 06:59 14:59 Intake Total 34935 2618 Output Total 8825 1775 Balance 1776 843 Lab Results Last 24 Hours: Laboratory Results - last 24 hr 07/31/17 08/01/17 08/01/17 Range/Units 17:04 06:05 06:05 WBC 7.44 (4.23-9.07) K/mm3 RBC 2.42 L (4.63-6.08) M/mm3 Hgb 7.5 L (13.7-17.5) gm/L Hct 23.4 L (40.1-51.0) % MCV 96.7 H (79.0-92.2) fl MCH 31.0 (25.7-32.2) pg MCHC 32.1 L (32.2-35.5) g/dl RDW Std Deviation 43.0 (35.1-43.9) fL Plt Count 434 H (163-337) K/mm3 MPV 9.6 (9.4-12.3) fl Neut % (Auto) 75.7 H (34.0-67.9) % Lymph % (Auto) 8.2 L (21.8-53.1) % [place] % (Auto) 8.5 (5.3-12.2) % Eos % (Auto) 5.4 (0.8-7.0) Baso % (Auto) 0.7 (0.1-1.2) % Neut # (Auto) 5.64 H (1.78-5.38) K/mm3 Lymph # (Auto) 0.61 L (1.32-3.57) K/mm3 [place] # (Auto) 0.63 (0.30-0.82) K/mm3 Eos # (Auto) 0.40 (0.04-0.54) K/mm3 Baso # (Auto) 0.05 (0.01-0.08) K/mm3 Manual Slide Review Abnormal smear Sodium 140 (136-145) mEq/L Potassium 3.3 L (3.5-5.1) mEq/L Chloride 106 (98-107) mEq/L Carbon Dioxide 24 (21-32) mEq/L Anion Gap 13.3 (5-15) BUN 5 L (7-18) mg/dL Creatinine 0.6 L (0.7-1.3) mg/dL Est Cr Clr Drug Dosing 156.48 mL/min Estimated GFR (MDRD) > 60 (>60) mL/min BUN/Creatinine Ratio 8.3 L (14-18) Glucose 143 H (74-106) mg/dL POC Glucose 267 H (70-105) mg/dL Calcium 8.9 (8.5-10.1) mg/dL Magnesium 1.4 L (1.8-2.4) mg/dl Med Orders - Current: Current Medications Acetaminophen (Tylenol) 650 mg PO Q4H PRN PRN Reason: Pain (Mild 1-3)/fever Albuterol/Ipratropium (Duoneb 3.0-0.5 Mg/3 Ml) 3 ml NEB Q4H PRN PRN Reason: Shortness Of Breath/wheezing Last Admin: 07/30/17 23:59 Dose: 3 ml Allopurinol (Zyloprim) 150 mg PO MoWeFr@0900 [facility] Last Admin: 07/30/17 09:05 Dose: 150 mg Amlodipine Besylate (Norvasc) 5 mg PO DAILY [facility] Last Admin: 07/31/17 08:09 Dose: 5 mg Ascorbic Acid (Vitamin C) 500 mg PO BID [facility] Last Admin: 07/31/17 20:44 Dose: 500 mg Benzocaine (Hurricaine 20% [place]) 15 ml MUCMEM Q4HR PRN PRN Reason: Sore Throat Last Admin: 07/31/17 08:19 Dose: 1 dose Benzocaine/Menthol (Cepacol Sore Throat) 1 lozenge MUCMEM Q4HR PRN PRN Reason: Sore Throat Last Admin: 07/31/17 13:51 Dose: 1 lozenge Benzonatate (Tessalon Perles) 200 mg PO TID PRN PRN Reason: Cough Last Admin: 07/31/17 15:47 Dose: 200 mg Bisacodyl (Dulcolax) 5 mg PO DAILY PRN PRN Reason: Constipation Calcium Carbonate (Calcium Carbonate/Vitamin D 1500 Mg-200 Unit) 1 tab PO BID [facility] Last Admin: 07/31/17 20:42 Dose: 1 tab Cephalexin (Keflex) 500 mg PO Q12H [facility] Last Admin: 07/31/17 20:45 Dose: 500 mg Clonidine HCl (Catapres) 0.1 mg PO Q12HR [facility] Last Admin: 07/31/17 20:44 Dose: 0.1 mg Cyclobenzaprine HCl (Flexeril) 5 mg PO TID [facility] Last Admin: 07/31/17 20:43 Dose: 5 mg Dextrose/Water (Dextrose 50% In Water) 50 ml IVPUSH ASDIRECTED PRN PRN Reason: Hypoglycemia Docusate Sodium (Colace) 100 mg PO BID PRN PRN Reason: Constipation Last Admin: 08/01/17 06:23 Dose: 100 mg Famotidine (Pepcid) 20 mg PO BID [facility] Last Admin: 07/31/17 20:44 Dose: 20 mg Ferrous Sulfate (Ferrous Sulfate) 325 mg PO DAILY [facility] Last Admin: 07/31/17 08:18 Dose: 325 mg Guaifenesin/Phenylephrine HCl (Robitussin Dm) 10 ml PO Q4H PRN PRN Reason: Cough Last Admin: 07/30/17 12:20 Dose: 10 ml Hydralazine HCl (Apresoline) 20 mg IVPUSH Q4H PRN PRN Reason: Hypertension Last Admin: 07/31/17 05:58 Dose: 20 mg Hydrochlorothiazide (Hydrochlorothiazide) 12.5 mg PO BIDDIURETIC [facility] Last Admin: 08/01/17 06:24 Dose: 12.5 mg Hydromorphone HCl (Dilaudid) 0.5 mg IVPUSH Q2H PRN PRN Reason: Pain Last Admin: 07/29/17 03:06 Dose: 0.5 mg Sodium Chloride (Normal Saline) 1,000 mls @ 125 mls/hr IV ASDIRECTED [facility] Last Admin: 08/01/17 04:59 Dose: 125 mls/hr Promethazine HCl 12.5 mg/ (Sodium Chloride) 50.5 mls @ 100 mls/hr IV Q6H PRN PRN Reason: Nausea/Vomiting Sodium Chloride (Normal Saline) 1,000 mls @ 166.667 mls/hr IRR Q6H PRN PRN Reason: FOR CONTINUOUS BLADDER IRRIGAT Magnesium Sulfate 2 gm/ Premix 50 mls @ 25 mls/hr IV Q2H [facility] Stop: 08/01/17 14:14 Indomethacin (Indocin) 25 mg PO DAILY PRN PRN Reason: Pain (moderate 4-6) Last Admin: 07/31/17 15:47 Dose: 25 mg Insulin Aspart (Novolog) 0 unit SUBCUT [facility] PRN Reason: Protocol Last Admin: 08/01/17 06:44 Dose: Not Given Lorazepam (Ativan) 0.5 mg IVPUSH Q4H PRN PRN Reason: Anxiety Last Admin: 07/31/17 15:47 Dose: 0.5 mg Losartan Potassium (Cozaar) 50 mg PO DAILY [facility] Last Admin: 07/31/17 08:14 Dose: 50 mg Magnesium Sulfate (Pharmacy To Dose - Magnesium Replacement) 0 dose .XX ASDIRECTED PRN PRN Reason: RX TO WATCH MAG LEVELS Metformin HCl (Glucophage) 1,000 mg PO BIDMEALS [facility] Last Admin: 08/01/17 06:24 Dose: 1,000 mg Metoprolol Succinate (Toprol Xl) 100 mg PO DAILY [facility] Last Admin: 07/31/17 08:16 Dose: 100 mg Metoprolol Tartrate (Lopressor) 5 mg IVPUSH Q4H PRN PRN Reason: Tachycardia Mirtazapine (Remeron) 15 mg PO BEDTIME [facility] Last Admin: 07/31/17 20:45 Dose: 15 mg Ondansetron HCl (Zofran) 4 mg IV Q6H PRN PRN Reason: Nausea/Vomiting Oxybutynin Chloride (Oxybutynin) 5 mg PO BID PRN PRN Reason: Other Last Admin: 07/29/17 11:34 Dose: 5 mg Oxycodone HCl (Oxycodone) 5 mg PO Q4H PRN PRN Reason: Pain (moderate 4-6) Last Admin: 07/31/17 06:54 Dose: 5 mg Polyethylene Glycol (Miralax) 17 gm PO DAILY [facility] Last Admin: 07/31/17 10:53 Dose: Not Given Potassium Chloride (Pharmacy To Dose - Potassium Replacement) 0 dose .XX ASDIRECTED PRN PRN Reason: RX TO WATCH K LEVELS Potassium Chloride (Klor-Con M20) 40 meq PO Q4H [facility] Stop: 08/01/17 12:01 Senna/Docusate Sodium (Senna Plus) 1 tab PO BID [facility] Last Admin: 07/31/17 20:42 Dose: 1 tab Tamsulosin HCl (Flomax) 0.4 mg PO DAILY [facility] Last Admin: 07/31/17 08:15 Dose: 0.4 mg Temazepam (Restoril) 30 mg PO BEDTIME PRN PRN Reason: Insomnia Last Admin: 07/30/17 21:34 Dose: 30 mg Discontinued Medications Benzonatate (Tessalon Perles) 100 mg PO TID PRN PRN Reason: Cough Last Admin: 07/29/17 11:33 Dose: 100 mg Clonidine HCl (Catapres) 0.1 mg PO DAILY [facility] Last Admin: 07/31/17 08:15 Dose: 0.1 mg Ferrous Sulfate (Ferrous Sulfate) 325 mg PO BID [facility] Last Admin: 07/30/17 09:04 Dose: 325 mg Ceftriaxone Sodium 2 gm/ (Sodium Chloride) 100 mls @ 200 mls/hr IV ONETIME ONE Stop: 07/29/17 12:36 Last Admin: 07/29/17 12:47 Dose: 200 mls/hr Ceftriaxone Sodium 1 gm/ (Sodium Chloride) 100 mls @ 200 mls/hr IV Q24H [facility] Last Admin: 07/31/17 08:19 Dose: 200 mls/hr Magnesium Sulfate 2 gm/ Premix 50 mls @ 25 mls/hr IV Q2H [facility] Stop: 07/30/17 15:29 Last Admin: 07/30/17 14:49 Dose: 25 mls/hr Magnesium Sulfate 2 gm/ Premix 50 mls @ 25 mls/hr IV Q2H [facility] Stop: 07/31/17 12:59 Last Admin: 07/31/17 13:24 Dose: 25 mls/hr Insulin Aspart (Novolog) 0 unit SUBCUT ASDIRECTED [facility] PRN Reason: Protocol Non-Formulary Medication (Phenazopyridine Hcl) 200 mg PO Q8H [facility] Potassium Chloride (Klor-Con M20) 20 meq PO Q3H MEL Stop: 07/29/17 11:01 Last Admin: 07/29/17 10:57 Dose: 20 meq Potassium Chloride (Klor-Con M20) 40 meq PO ONETIME ONE Stop: 07/31/17 09:01 Last Admin: 07/31/17 10:00 Dose: 40 meq - Exam General: Cooperative, Lethargic HEENT: Pupils Equal, Pupils Reactive, EOMI Neck: Supple Lungs: Clear to Auscultation, Normal Respiratory Effort Cardiovascular: Regular Rhythm, Tachycardia GI/Abdominal Exam: Normal Bowel Sounds, Soft, Non-Tender, No Organomegaly, No Distention, No Abnormal Bruit, No Mass (Male) Exam: Normal Inspection, Circumcised Skin: Warm, Dry, Intact Neurological: No New Focal Deficit Psy/Mental Status: Normal Affect, Normal Mood - Assessment Assessment:: Patient is a 62 yo caucasion male that was admitted for hematuria. Patient looks more lethargic today. He is oriented to person and place, but not time. His catheter has been removed and he is able to urinate. His urine is still red. He has some pain with suprapubic pressure but no other acute symptoms noted. He expressed wishes to go home today, but will need a re-evaluation of RBC count and hemoglobin to assess possibility of a blood transfusion before that can be arranged - Plan Plan:: Assessment/Plan: Acute: Hemorrhagic Cystitis, Worse - Acute on Chronic - Dark-Reddish colored urine with multiple clots - Has hematuria, dysuria and hemorrhage - Likely post radiation; has completed [address] Peralta - Risk factors: hx/o prostate cancer s/p turp, chronic hematuria - No hx/o cyclophosphamide/ifosphamide use - UA positive for E. faecalis and coli - He had bladder irrigation but not cauterization last week in [place] - He continues to have hematuria with clots - He is only on ASA - He follows Dr. Crisostomo and was told to go to [facility] - Plan: Set up appointment to [facility], Avoid ASA and any anticogs, Monitor H/H and Bladder Irrigation Q shift - He continues to have catheter leak (catheter does not fit him well) and had multiple blood clots - Andino catheter was clogged up; bladder scan > at least 300 ml residual urine at the time - Catheter has been removed and he is voiding on his own - He has been having more bladder discomfort Complicated Cystitis - Has hematuria with hx/o prostate cancer s/p trup and radiation therapy - UA on 07/25/2017 pos for E, coli and faecalis sensitive - Continue IV Rocephin daily Anemia, Stable - Acute on Chronic - 2/2 Hematuria - Hgb went from 8.2--> this a.m. 7.5 - He remains hemodynamically stable - Continue oral iron pills - Monitor Hgb level Pharyngitis, Improved - Likely Viral - He is negative for influenza and rapid strep - He mild erythema but w/o exudate or edema - Q4 PRN Cepacol and Benzocaine spray Electrolyte Abnormality - Hypokalemia - K 3.2 - 2/2 inadequate intake - Replete and monitor - Hypomagnesemia - Mg 1.3 - Appears to be chronic - Continue to replete and monitor Chronic: Impaired Vision HTN, Stable DM2, Accu-check AM/HS with ISS GERD, H2B Back Pain, PRN pain meds Gout, Allopurinol and Indomethacin Nicotine Dependence, Nicotine Patch Hx/o Brain Injury Hx/o Prostate cancer S/p TURP and Radiation Therapy Plan: Recheck hemoglobin and RBC for possible blood transfusion Continue current treatment and PT/OT Reviewed charts from [facility]: Dr. Crisostomo recommends for him tog o to [facility]. He has not had an appointment yet. DVT/GI PPx: H2B and SCDs; anticoags contraindicated due to hematuria SW/CM for d/c planning and to help to set up [facility] appointment Additional orders as above Code status: 1 [facility] refused to take him. We are looking at sending him to step down unit but with his worsening urologic status it might be best to attempt to send him to [facility] at this point. We will try to make phone calls. LOS anticipate > 96 hrs pending placement vs transfer for upper level of care. <Bala Virgen T - Last Filed: 08/02/17 01:12> - General Info Functional Status: Reports: Pain Controlled, Tolerating Diet, Urinating - Review of Systems General: Reports: Fatigue. Denies: Fever, Chills Pulmonary: Denies: Shortness of Breath Cardiovascular: Denies: Chest Pain Gastrointestinal: Denies: Abdominal Pain, Nausea, Vomiting Genitourinary: Reports: Hematuria Musculoskeletal: Reports: No Symptoms Skin: Reports: No Symptoms Psychiatric: Reports: Confusion. Denies: Anxiety, Agitation, Hallucinations Systems Review Comment:: He had a rough night last night. His andino catheter clogged up and he was retaining fairly decent amount of urine and blood clots. However since andino catheter came off, he has been able to void. His Hgb however drop to 7.5 this am. Again, we attempted to ship him out last night but w/o much success. His K and Mg levels remains low. - Patient Data Vitals - Most Recent: Last Vital Signs Temp 37.1 C 08/01/17 21:03 Pulse 96 08/01/17 21:03 Resp 20 08/01/17 21:03 BP 135/71 08/01/17 21:03 Pulse Ox 94 L 08/01/17 21:03 I&O - Last 24 Hours: Intake & Output 08/01/17 08/01/17 08/02/17 14:59 22:59 06:59 Intake Total 180 3925 Output Total 850 Balance 180 3075 Lab Results Last 24 Hours: Laboratory Results - last 24 hr 08/01/17 08/01/17 08/01/17 Range/Units 06:05 06:05 06:05 WBC 7.44 (4.23-9.07) K/mm3 RBC 2.42 L (4.63-6.08) M/mm3 Hgb 7.5 L (13.7-17.5) gm/L Hct 23.4 L (40.1-51.0) % MCV 96.7 H (79.0-92.2) fl MCH 31.0 (25.7-32.2) pg MCHC 32.1 L (32.2-35.5) g/dl RDW Std Deviation 43.0 (35.1-43.9) fL Plt Count 434 H (163-337) K/mm3 MPV 9.6 (9.4-12.3) fl Neut % (Auto) 75.7 H (34.0-67.9) % Lymph % (Auto) 8.2 L (21.8-53.1) % [place] % (Auto) 8.5 (5.3-12.2) % Eos % (Auto) 5.4 (0.8-7.0) Baso % (Auto) 0.7 (0.1-1.2) % Neut # (Auto) 5.64 H (1.78-5.38) K/mm3 Lymph # (Auto) 0.61 L (1.32-3.57) K/mm3 [place] # (Auto) 0.63 (0.30-0.82) K/mm3 Eos # (Auto) 0.40 (0.04-0.54) K/mm3 Baso # (Auto) 0.05 (0.01-0.08) K/mm3 Manual Slide Review Abnormal smear Sodium 140 (136-145) mEq/L Potassium 3.3 L (3.5-5.1) mEq/L Chloride 106 (98-107) mEq/L Carbon Dioxide 24 (21-32) mEq/L Anion Gap 13.3 (5-15) BUN 5 L (7-18) mg/dL Creatinine 0.6 L (0.7-1.3) mg/dL Est Cr Clr Drug Dosing 156.48 mL/min Estimated GFR (MDRD) > 60 (>60) mL/min BUN/Creatinine Ratio 8.3 L (14-18) Glucose 143 H (74-106) mg/dL POC Glucose (70-105) mg/dL Calcium 8.9 (8.5-10.1) mg/dL Magnesium 1.4 L (1.8-2.4) mg/dl Blood Type A POSITIVE Gel Antibody Screen Negative Crossmatch See Detail 08/01/17 08/01/17 08/01/17 Range/Units 06:11 17:24 21:07 WBC (4.23-9.07) K/mm3 RBC (4.63-6.08) M/mm3 Hgb (13.7-17.5) gm/L Hct (40.1-51.0) % MCV (79.0-92.2) fl MCH (25.7-32.2) pg MCHC (32.2-35.5) g/dl RDW Std Deviation (35.1-43.9) fL Plt Count (163-337) K/mm3 MPV (9.4-12.3) fl Neut % (Auto) (34.0-67.9) % Lymph % (Auto) (21.8-53.1) % [place] % (Auto) (5.3-12.2) % Eos % (Auto) (0.8-7.0) Baso % (Auto) (0.1-1.2) % Neut # (Auto) (1.78-5.38) K/mm3 Lymph # (Auto) (1.32-3.57) K/mm3 [place] # (Auto) (0.30-0.82) K/mm3 Eos # (Auto) (0.04-0.54) K/mm3 Baso # (Auto) (0.01-0.08) K/mm3 Manual Slide Review Sodium (136-145) mEq/L Potassium (3.5-5.1) mEq/L Chloride (98-107) mEq/L Carbon Dioxide (21-32) mEq/L Anion Gap (5-15) BUN (7-18) mg/dL Creatinine (0.7-1.3) mg/dL Est Cr Clr Drug Dosing mL/min Estimated GFR (MDRD) (>60) mL/min BUN/Creatinine Ratio (14-18) Glucose (74-106) mg/dL POC Glucose 144 H 167 H 133 H (70-105) mg/dL Calcium (8.5-10.1) mg/dL Magnesium (1.8-2.4) mg/dl Blood Type Gel Antibody Screen Crossmatch Med Orders - Current: Current Medications Acetaminophen (Tylenol) 650 mg PO Q4H PRN PRN Reason: Pain (Mild 1-3)/fever Albuterol/Ipratropium (Duoneb 3.0-0.5 Mg/3 Ml) 3 ml NEB Q4H PRN PRN Reason: Shortness Of Breath/wheezing Last Admin: 11/13/17 23:59 Dose: 3 ml Allopurinol (Zyloprim) 150 mg PO MoWeFr@0900 [facility] Last Admin: 08/01/17 10:07 Dose: 150 mg Amlodipine Besylate (Norvasc) 5 mg PO DAILY [facility] Last Admin: 08/01/17 10:07 Dose: 5 mg Ascorbic Acid (Vitamin C) 500 mg PO BID [facility] Last Admin: 08/01/17 21:01 Dose: 500 mg Benzocaine (Hurricaine 20% [place]) 15 ml MUCMEM Q4HR PRN PRN Reason: Sore Throat Last Admin: 07/31/17 08:19 Dose: 1 dose Benzocaine/Menthol (Cepacol Sore Throat) 1 lozenge MUCMEM Q4HR PRN PRN Reason: Sore Throat Last Admin: 08/02/17 00:01 Dose: 1 lozenge Benzonatate (Tessalon Perles) 200 mg PO TID PRN PRN Reason: Cough Last Admin: 08/02/17 00:50 Dose: 200 mg Bisacodyl (Dulcolax) 5 mg PO DAILY PRN PRN Reason: Constipation Calcium Carbonate (Calcium Carbonate/Vitamin D 1500 Mg-200 Unit) 1 tab PO BID [facility] Last Admin: 08/01/17 20:59 Dose: 1 tab Cephalexin (Keflex) 500 mg PO Q12H [facility] Last Admin: 08/01/17 21:03 Dose: 500 mg Clonidine HCl (Catapres) 0.1 mg PO Q12HR [facility] Last Admin: 08/01/17 21:02 Dose: 0.1 mg Cyclobenzaprine HCl (Flexeril) 5 mg PO TID [facility] Last Admin: 08/01/17 21:00 Dose: 5 mg Dextrose/Water (Dextrose 50% In Water) 50 ml IVPUSH ASDIRECTED PRN PRN Reason: Hypoglycemia Docusate Sodium (Colace) 100 mg PO BID PRN PRN Reason: Constipation Last Admin: 08/01/17 06:23 Dose: 100 mg Famotidine (Pepcid) 20 mg PO BID [facility] Last Admin: 08/01/17 21:02 Dose: 20 mg Ferrous Sulfate (Ferrous Sulfate) 325 mg PO DAILY [facility] Last Admin: 08/01/17 10:06 Dose: 325 mg Guaifenesin/Phenylephrine HCl (Robitussin Dm) 10 ml PO Q4H PRN PRN Reason: Cough Last Admin: 08/01/17 23:42 Dose: 10 ml Hydralazine HCl (Apresoline) 20 mg IVPUSH Q4H PRN PRN Reason: Hypertension Last Admin: 07/31/17 05:58 Dose: 20 mg Hydrochlorothiazide (Hydrochlorothiazide) 12.5 mg PO BIDDIURETIC [facility] Last Admin: 08/01/17 14:12 Dose: 12.5 mg Hydromorphone HCl (Dilaudid) 0.5 mg IVPUSH Q2H PRN PRN Reason: Pain Last Admin: 07/29/17 03:06 Dose: 0.5 mg Sodium Chloride (Normal Saline) 1,000 mls @ 125 mls/hr IV ASDIRECTED [facility] Last Admin: 08/02/17 00:29 Dose: 125 mls/hr Promethazine HCl 12.5 mg/ (Sodium Chloride) 50.5 mls @ 100 mls/hr IV Q6H PRN PRN Reason: Nausea/Vomiting Sodium Chloride (Normal Saline) 1,000 mls @ 166.667 mls/hr IRR Q6H PRN PRN Reason: FOR CONTINUOUS BLADDER IRRIGAT Indomethacin (Indocin) 25 mg PO DAILY PRN PRN Reason: Pain (moderate 4-6) Last Admin: 07/31/17 15:47 Dose: 25 mg Insulin Aspart (Novolog) 0 unit SUBCUT [facility] PRN Reason: Protocol Last Admin: 08/01/17 22:37 Dose: Not Given Lorazepam (Ativan) 0.5 mg IVPUSH Q4H PRN PRN Reason: Anxiety Last Admin: 07/31/17 15:47 Dose: 0.5 mg Losartan Potassium (Cozaar) 50 mg PO DAILY [facility] Last Admin: 08/01/17 10:08 Dose: 50 mg Magnesium Sulfate (Pharmacy To Dose - Magnesium Replacement) 0 dose .XX ASDIRECTED PRN PRN Reason: RX TO WATCH MAG LEVELS Metformin HCl (Glucophage) 1,000 mg PO BIDMEALS [facility] Last Admin: 08/01/17 17:46 Dose: 1,000 mg Metoprolol Succinate (Toprol Xl) 100 mg PO DAILY [facility] Last Admin: 08/01/17 10:06 Dose: 100 mg Metoprolol Tartrate (Lopressor) 5 mg IVPUSH Q4H PRN PRN Reason: Tachycardia Mirtazapine (Remeron) 15 mg PO BEDTIME [facility] Last Admin: 08/01/17 21:04 Dose: 15 mg Ondansetron HCl (Zofran) 4 mg IV Q6H PRN PRN Reason: Nausea/Vomiting Oxybutynin Chloride (Oxybutynin) 5 mg PO BID PRN PRN Reason: Other Last Admin: 07/29/17 11:34 Dose: 5 mg Oxycodone HCl (Oxycodone) 5 mg PO Q4H PRN PRN Reason: Pain (moderate 4-6) Last Admin: 07/31/17 06:54 Dose: 5 mg Polyethylene Glycol (Miralax) 17 gm PO DAILY [facility] Last Admin: 08/01/17 10:11 Dose: Not Given Potassium Chloride (Pharmacy To Dose - Potassium Replacement) 0 dose .XX ASDIRECTED PRN PRN Reason: RX TO WATCH K LEVELS Senna/Docusate Sodium (Senna Plus) 1 tab PO BID [facility] Last Admin: 08/01/17 21:01 Dose: 1 tab Tamsulosin HCl (Flomax) 0.4 mg PO DAILY [facility] Last Admin: 08/01/17 10:12 Dose: 0.4 mg Temazepam (Restoril) 30 mg PO BEDTIME PRN PRN Reason: Insomnia Last Admin: 07/30/17 21:34 Dose: 30 mg Discontinued Medications Benzonatate (Tessalon Perles) 100 mg PO TID PRN PRN Reason: Cough Last Admin: 07/29/17 11:33 Dose: 100 mg Clonidine HCl (Catapres) 0.1 mg PO DAILY [facility] Last Admin: 07/31/17 08:15 Dose: 0.1 mg Ferrous Sulfate (Ferrous Sulfate) 325 mg PO BID [facility] Last Admin: 07/30/17 09:04 Dose: 325 mg Ceftriaxone Sodium 2 gm/ (Sodium Chloride) 100 mls @ 200 mls/hr IV ONETIME ONE Stop: 07/29/17 12:36 Last Admin: 07/29/17 12:47 Dose: 200 mls/hr Ceftriaxone Sodium 1 gm/ (Sodium Chloride) 100 mls @ 200 mls/hr IV Q24H [facility] Last Admin: 07/31/17 08:19 Dose: 200 mls/hr Magnesium Sulfate 2 gm/ Premix 50 mls @ 25 mls/hr IV Q2H [facility] Stop: 07/30/17 15:29 Last Admin: 07/30/17 14:49 Dose: 25 mls/hr Magnesium Sulfate 2 gm/ Premix 50 mls @ 25 mls/hr IV Q2H [facility] Stop: 07/31/17 12:59 Last Admin: 07/31/17 13:24 Dose: 25 mls/hr Magnesium Sulfate 2 gm/ Premix 50 mls @ 25 mls/hr IV Q2H [facility] Stop: 08/01/17 14:14 Last Admin: 08/01/17 16:16 Dose: 50 mls/hr Insulin Aspart (Novolog) 0 unit SUBCUT ASDIRECTED [facility] PRN Reason: Protocol Non-Formulary Medication (Phenazopyridine Hcl) 200 mg PO Q8H [facility] Potassium Chloride (Klor-Con M20) 20 meq PO Q3H [facility] Stop: 07/29/17 11:01 Last Admin: 07/29/17 10:57 Dose: 20 meq Potassium Chloride (Klor-Con M20) 40 meq PO ONETIME ONE Stop: 07/31/17 09:01 Last Admin: 07/31/17 10:00 Dose: 40 meq Potassium Chloride (Klor-Con M20) 40 meq PO Q4H [facility] Stop: 08/01/17 12:01 Last Admin: 08/01/17 14:15 Dose: 40 meq Potassium Chloride (Klor-Con M20) 40 meq PO Q4H [facility] Stop: 08/01/17 14:16 Last Admin: 08/01/17 17:45 Dose: Not Given - Exam General: Alert, Cooperative, Lethargic HEENT: Pupils Equal, Pupils Reactive, EOMI, Mucous Membr. Moist/[place]: Supple, Trachea Midline, No JVD Lungs: Clear to Auscultation, Normal Respiratory Effort Cardiovascular: Regular Rate, Regular Rhythm GI/Abdominal Exam: Normal Bowel Sounds, Soft, Non-Tender, No Organomegaly, No Distention, No Abnormal Bruit, No Mass (Male) Exam: No Hernia, Normal Inspection, Circumcised Back Exam: Normal Inspection, Decreased Range of Motion Extremities: Normal Inspection, Normal Range of Motion, Non-Tender, No Pedal Edema, Normal Capillary Refill Peripheral Pulses: 2+: Dorsalis Pedis (L), Dorsalis Pedis (R) Skin: Warm, Dry, Intact Neurological: No New Focal Deficit Psy/Mental Status: Normal Affect, Normal Mood - Problem List Review Problem List Initiated/Reviewed/Updated: Yes - My Orders Last 24 Hours: My Active Orders 08/01/17 00:45 Bladder Scan [RC] .PRN 08/01/17 08:01 Transfuse RBC [Transfuse Red Blood Cells] [COMM] Routine Transfuse Red Blood Cells [COMM] Routine 08/02/17 05:11 BASIC METABOLIC PANEL,BMP [CHEM] AM CBC WITH AUTO DIFF [HEME] AM MAGNESIUM [CHEM] AM 08/03/17 05:11 BASIC METABOLIC PANEL,BMP [CHEM] AM - Plan Plan:: Assessment/Plan: Acute: Hemorrhagic Cystitis, Unchanged - Acute on Chronic - Dark-Reddish colored urine with multiple clots - Has hematuria, dysuria and hemorrhage - Likely post radiation; has completed [address] Peralta - Risk factors: hx/o prostate cancer s/p turp, chronic hematuria - No hx/o cyclophosphamide/ifosphamide use - UA positive for E. faecalis and coli - He had bladder irrigation but not cauterization last week in [place] - He continues to have hematuria with clots - He is only on ASA - He follows Dr. Crisostomo and was told to go to [facility] - Plan: Set up appointment to [facility], Avoid ASA and any anticogs, Monitor H/H and Bladder Irrigation Q shift - He continues to have catheter leak (catheter does not fit him well) and had multiple blood clots - Andino catheter was clogged up; bladder scan > at least 300 ml residual urine at the time - Catheter has been removed and he is voiding on his own - He has been having more bladder discomfort Complicated Cystitis - Has hematuria with hx/o prostate cancer s/p trup and radiation therapy - UA on 07/25/2017 pos for E. coli and E. faecalis sensitive - Keflex 500 mg po BID Anemia - Acute on Chronic - 2/2 Hematuria - Hgb went from 8.2--> this a.m. 7.5 - He remains hemodynamically stable - Continue oral iron pills; typed and crossed 1 unit of PRBC for transfusion - Monitor Hgb level Pharyngitis, Improved - Likely Viral - He is negative for influenza and rapid strep - He mild erythema but w/o exudate or edema - Q4 PRN Cepacol and Benzocaine spray Electrolyte Abnormality - Hypokalemia - K 3.2--> 3.3 - 2/2 inadequate intake - Continue to replete and monitor - Hypomagnesemia - Mg 1.3--> 1.4 - Appears to be chronic - Continue to replete and monitor Chronic: Impaired Vision HTN, Stable DM2, Accu-check AM/HS with ISS GERD, H2B Back Pain, PRN pain meds Gout, Allopurinol and Indomethacin Nicotine Dependence, Nicotine Patch Hx/o Brain Injury Hx/o Prostate cancer S/p TURP and Radiation Therapy Plan: He is hemodynamically stable Continue current treatment and PT/OT DVT/GI PPx: H2B and SCDs; anticoags contraindicated due to hematuria SW/CM for d/c planning He now has an appointment to [facility] on the 27 of August Additional orders as above Code status: 1 Patient will be discharged tomorrow to travel to [facility] in [place], [place]. He will be evaluated by Dr. Akhtar on Sunday at [address] [place] [address]. His son will be coming up from [place] to take him over to his appointment. Spoke and updated his son, Alan about the discharge care plan. Possible d/c tomorrow
[2017-08-01] MEDS: Potassium Chloride 20 MEQ Tab.ER PO SCH ×2 (10:05→14:15)
[2017-08-01] MEDS: Cephalexin 500 MG Cap PO SCH ×2 (10:05→21:03)
[2017-08-01] MEDS: Metoprolol Succinate 50 MG Tab.ER PO SCH (10:06)
[2017-08-01] MEDS: Ferrous Sulfate 325 MG Tab PO SCH (10:06)
[2017-08-01] MEDS: amLODIPine 5 MG Tab PO SCH (10:07)
[2017-08-01] MEDS: Allopurinol 300 MG Tab PO SCH (10:07)
[2017-08-01] MEDS: Losartan 25 MG Tab PO SCH (10:08)
[2017-08-01] MEDS: cloNIDine 0.1 MG Tab PO SCH ×2 (10:09→21:02)
[2017-08-01] MEDS: Cyclobenzaprine 10 MG Tab PO SCH ×3 (10:10→21:00)
[2017-08-01] MEDS: Ascorbic Acid 500 MG Tab PO SCH ×2 (10:11→21:01)
[2017-08-01] MEDS: Famotidine 20 MG Tab PO SCH ×2 (10:11→21:02)
[2017-08-01] MEDS: Polyethylene Glycol 3350 Powder 17 GM Packet PO SCH (10:11)
[2017-08-01] MEDS: Tamsulosin 0.4 MG Cap.ER PO SCH (10:12)
[2017-08-01] MEDS: Calcium Carbonate/Vitamin D3 1500 MG-200 Units Tab PO SCH ×2 (10:12→20:59)
[2017-08-01] MEDS: Magnesium Sulfate/Water 2 GM in Premix Bag 1 BAG IV SCH ×3 (10:12→16:16)
[2017-08-01] MEDS ORDERED: Potassium Chloride 20 MEQ Tab.ER PO SCH (14:15)
[2017-08-01] MEDS: Mirtazapine 15 MG Tab PO SCH (21:04)
[2017-08-01] MEDS: guaiFENesin/Dextromethorphan 100-10 MG/5 ML Soln 5 ML Cup PO PRN (23:42)
[2017-08-02] MEDS: Benzocaine/Cetylpyridinium/Menthol Lozenge MUCMEM PRN ×2 (00:01→14:11)
[2017-08-02] MEDS: Sodium Chloride 0.9% 1,000 ML IV SCH (00:29)
[2017-08-02] MEDS: Benzonatate 100 MG Cap PO PRN ×2 (00:50→12:30)
[2017-08-02] MEDS: LORazepam 2 MG/ML MDV IVPUSH PRN (01:37)
[2017-08-02] MEDS: Hydrochlorothiazide 12.5 MG Cap PO SCH ×2 (06:37→13:01)
[2017-08-02] MEDS: metFORMIN 500 MG Tab PO SCH (06:37)
[2017-08-02] MEDS: Insulin Aspart 100 Units/ML 3 ML Pen SUBCUT SCH (07:49)
[2017-08-02] MEDS: Cephalexin 500 MG Cap PO SCH (09:10)
[2017-08-02] MEDS: Calcium Carbonate/Vitamin D3 1500 MG-200 Units Tab PO SCH (09:10)
[2017-08-02] MEDS: Cyclobenzaprine 10 MG Tab PO SCH (09:12)
[2017-08-02] MEDS: Ascorbic Acid 500 MG Tab PO SCH (09:12)
[2017-08-02] MEDS: Famotidine 20 MG Tab PO SCH (09:15)
[2017-08-02] MEDS: amLODIPine 5 MG Tab PO SCH (09:15)
[2017-08-02] MEDS: Ferrous Sulfate 325 MG Tab PO SCH (09:16)
[2017-08-02] MEDS: Metoprolol Succinate 50 MG Tab.ER PO SCH (09:16)
[2017-08-02] MEDS: cloNIDine 0.1 MG Tab PO SCH (09:16)
[2017-08-02] MEDS: Tamsulosin 0.4 MG Cap.ER PO SCH (09:18)
[2017-08-02] MEDS: Losartan 25 MG Tab PO SCH (09:18)
[2017-08-02] MEDS: Polyethylene Glycol 3350 Powder 17 GM Packet PO SCH ×2 (09:20→11:02)
[2017-08-02] MEDS: Magnesium Sulfate/Water 2 GM in Premix Bag 1 BAG IV SCH ×3 (09:25→13:01)
--- NOTE | 2017-08-02 11:24 | PCM.DCSUM1 ---
Discharge Summary - Hospital Course Brief History: This is a 62 yo white male with past medical hx/o Impaired Vision , HTN, GERD, Chronic Back Pain, Gout, Hx/o Brain Injury, and DM2 who comes for worsening hematuria that has been going for more than 6 months now. He was admitted for medical management of hemorrhagic cystitis. - Discharge Data Discharge Date: 08/02/17 Discharge Disposition: Home, Self-Care 01 Condition: Good - Discharge Diagnosis/Problem(s) (1) Acute hemorrhagic cystitis SNOMED Code(s): 26456796 ICD Code: N30.01 - ACUTE CYSTITIS WITH HEMATURIA Status: Acute (2) Gross hematuria SNOMED Code(s): 754671201 ICD Code: R31.0 - GROSS HEMATURIA Status: Acute (3) Prostate cancer SNOMED Code(s): 130209525 ICD Code: C61 - MALIGNANT NEOPLASM OF PROSTATE Status: Chronic (4) Anemia SNOMED Code(s): 316694936 ICD Code: D64.9 - ANEMIA, UNSPECIFIED Status: Acute Priority: High Qualifiers: Anemia type: unspecified type Qualified Code(s): D64.9 - Anemia, unspecified (5) UTI (urinary tract infection) SNOMED Code(s): 14207662 ICD Code: N39.0 - URINARY TRACT INFECTION, SITE NOT SPECIFIED Status: Acute Priority: High Qualifiers: Urinary tract infection type: acute cystitis Hematuria presence: with hematuria Qualified Code(s): N30.01 - Acute cystitis with hematuria (6) Urinary retention with incomplete bladder emptying SNOMED Code(s): 695858906 ICD Code: R33.9 - RETENTION OF URINE, UNSPECIFIED Status: Chronic (7) Pharyngitis SNOMED Code(s): 943682155 ICD Code: J02.9 - ACUTE PHARYNGITIS, UNSPECIFIED Status: Acute Qualifiers: Pharyngitis/tonsillitis etiology: unspecified etiology Qualified Code(s): J02.9 - Acute pharyngitis, unspecified - Patient Summary/Data Operative Procedure(s) Performed: None Complications: None Consults: Consultations 07/29/17 07:00 Consult to Case Management [CONS] Routine Consult to Environmental Engineering Assistant [CONS] Routine Consult to Spiritual Care [CONS] Routine OT Evaluation and Treatment [CONS] Routine PT Evaluation and Treatment [CONS] Routine Labs Pending at D/C: None Recommended Follow-up Testing/Procedures: None Planned Operative Procedure(s) after DC: None Hospital Course: Patient was primarily admitted for medical management of his acute on chronic hematuria 2/2 hemorrhagic cystitis. He carried a past medical hx/o prostate cancer s/p TURP and radiation treatment. He was recently discharged from [facility] for similar complaint. Unfortunately, they did not have anything else to offer him. On this admission, we provided him supportive care and bladder irrigation. His hospital course was complicated by increased urinary retention from clogged up andino catheter. However after removing it, he was able to void and empty his bladder without much difficulties. He did receive 1 unit of PRBC due to a drop on his Hgb from hematuria and multiple bladder clots. The rest of his chronic medical illness remained stable during this admission. Patient was stable on discharge. He left the hospital to go to his urology appointment in [place], [place] on Sunday for second opinion. His son, Alan provided transportation. On the day of discharge, he was provided a few under pads and a urinal to use. He was further advised to take routine bathroom breaks to reduce bladder spasm and urinary retention. The patient and son, expressed understanding and in agreement with the plans as discussed above. All questions were answered. - Patient Instructions Diet: Heart Healthy Diet, Usual Diet as Tolerated, Diabetic Diet Activity: As Tolerated Driving: Do Not Drive Showering/Bathing: May Shower Notify Provider of: Fever, Increased Pain, Swelling and Redness, Nausea and/or Vomiting Other/Special Instructions: - Please take all medications as directed. - Recommend you take routine bathroom breaks. - Drive safely and carefully on your way to [facility] in [place], [place]. - If you experience any acute medical emergency, stop and go to the nearest medical facility and seek immediate care - Discharge Plan Prescriptions/Med Rec: Benzocaine/Cetylpyrd/Menthol [Cepacol Sore Throat] 1 lozenge MUCMEM Q4HR PRN # 15 mishel PRN Reason: Sore Throat Magnesium Oxide [Magnesium] 400 mg PO BID #60 tablet oxyCODONE 10 mg PO Q6H PRN #10 tablet PRN Reason: Pain Home Medications: Home Meds Allopurinol [Zyloprim] 150 mg PO MOWEFR 08/17/15 [History] Oxybutynin 5 mg PO BID PRN MDD overactive bladder 08/17/15 [History] metFORMIN [Glucophage] 1,000 mg PO BID 08/17/15 [History] Ascorbate Calcium [Vitamin C] 500 mg PO BID 01/04/17 [History] Calcium Carbonate/Vitamin D3 [Calcium 500-Vit D3 200 Caplet] 1 tab PO BID [History] Polyethylene Glycol 3350 [MiraLAX] 17 gm PO DAILY 01/04/17 [History] Sennosides/Docusate Sodium [Senna-Docusate Sodium] 1 tab PO BID 01/04/17 [ History] amLODIPine [Norvasc] 5 mg PO DAILY 01/04/17 [History] Phenazopyridine HCl [Pyridium] 200 mg PO Q8H #6 tablet 07/18/17 [Rx] Benzonatate 200 mg PO TID PRN 07/28/17 [History] Cyclobenzaprine [Flexeril] 5 mg PO TID 07/28/17 [History] Losartan [Cozaar] 50 mg PO DAILY 07/28/17 [History] Metoprolol Succinate [Toprol XL] 100 mg PO DAILY 07/28/17 [History] Mirtazapine 15 mg PO BEDTIME 07/28/17 [History] Tamsulosin [Flomax] 0.4 mg PO DAILY 07/28/17 [History] Ferrous Sulfate 325 mg PO DAILY 07/29/17 [History] Indomethacin [Indocin] 25 mg PO DAILY PRN 07/29/17 [History] Nicotine [Nicoderm CQ] 1 TRDERM DAILY 07/29/17 [History] Non-Formulary Medication [NF Drug] 07/29/17 [History] Triamcinolone Acetonide [Kenalog-40] 40 mg INJECT ONETIME 07/29/17 [History] Aspirin [Adult Low Dose Aspirin EC] 81 mg PO DAILY #30 08/02/17 [Rx] Benzocaine/Cetylpyrd/Menthol [Cepacol Sore Throat] 1 lozenge MUCMEM Q4HR PRN # 15 mishel 08/02/17 [Rx] Magnesium Oxide [Magnesium] 400 mg PO BID #60 tablet 08/02/17 [Rx] cloNIDine HCl [Catapres] 0.1 mg PO BID 08/02/17 [History] oxyCODONE 10 mg PO Q6H PRN #10 tablet 08/02/17 [Rx] Patient Handouts: Blood Transfusion, [id number], Diabetes and Sick Day Management, Andino Catheter Care, Adult, [id number], Hand Washing, [id number] , Smokeless Tobacco Use, Blood Glucose Monitoring, Adult, Hematuria, Adult Referrals: Allen Deng [Other] - 08/27/17 1:00 pm (Patient is to arrive early for testing (arrive in the morning) for cystogram, lab work and urinalysis. ) Charu Quintana NP [Ordering Only Provider] - 08/06/17 1:30 pm (Please follow up with Charu Quintana on SundayAugust 06 at 1:30 pm. Check in at 1 :15pm) Alize Akhtar MD [Ordering Only Provider] - 08/03/17 1:00 pm (Urology follow-up appointment is in Central Standard Time, 1200 noon Mountain Time.) García Allen MD [Physician] - 10/04/17 1:30 pm (Psychiatrist. [address] [place] [address] Clinic side of hospital, 2nd floor, 2nd desk. Please arrive 30 minutes early for this appointment.) - Discharge Summary/Plan Comment DC Time >30 min.: Yes (45 mins) Discharge Summary/Plan Comment: Discharge to Home - General Info Date of Service: 08/02/17 Admission Dx/Problem (Free Text: Admission Diagnosis/Problem Admission Diagnosis/Problem Hematuria Subjective Update: Follow Up Functional Status: Reports: Pain Controlled, Tolerating Diet, Ambulating, Urinating - Review of Systems General: Denies: Fever, Weakness, Fatigue, Malaise, Chills HEENT: Reports: No Symptoms Pulmonary: Denies: Shortness of Breath Cardiovascular: Denies: Chest Pain Gastrointestinal: Denies: Abdominal Pain, Nausea, Vomiting Genitourinary: Reports: Retention. Denies: Hematuria Musculoskeletal: Reports: No Symptoms Skin: Reports: No Symptoms Neurological: Denies: Confusion, Difficulty Walking, Weakness, Gait Disturbance Psychiatric: Denies: Depression, Anxiety, Agitation, Hallucinations Systems Review Comment: No significant overnight or acute issues. He is doing relatively well. His Hgb is stable at 8.3. His urine this morning is clear w/o clots. He has no new complaints. - Patient Data Vitals - Most Recent: Last Vital Signs Temp 36.6 C 08/02/17 07:46 Pulse 88 08/02/17 09:16 Resp 18 08/02/17 07:46 BP 159/86 H 08/02/17 09:18 Pulse Ox 95 08/02/17 07:46 Weight - Most Recent: 113.353 kg I&O - Last 24 hours: Intake & Output 08/01/17 08/02/17 08/02/17 22:59 06:59 14:59 Intake Total 3925 2100 400 Output Total 850 1900 Balance 3075 200 400 Lab Results - Last 24 hrs: Laboratory Results - last 24 hr 08/01/17 08/01/17 08/01/17 Range/Units 06:05 06:11 17:24 WBC (4.23-9.07) K/mm3 RBC (4.63-6.08) M/mm3 Hgb (13.7-17.5) gm/L Hct (40.1-51.0) % MCV (79.0-92.2) fl MCH (25.7-32.2) pg MCHC (32.2-35.5) g/dl RDW Std Deviation (35.1-43.9) fL Plt Count (163-337) K/mm3 MPV (9.4-12.3) fl Neut % (Auto) (34.0-67.9) % Lymph % (Auto) (21.8-53.1) % [place] % (Auto) (5.3-12.2) % Eos % (Auto) (0.8-7.0) Baso % (Auto) (0.1-1.2) % Neut # (Auto) (1.78-5.38) K/mm3 Lymph # (Auto) (1.32-3.57) K/mm3 [place] # (Auto) (0.30-0.82) K/mm3 Eos # (Auto) (0.04-0.54) K/mm3 Baso # (Auto) (0.01-0.08) K/mm3 Manual Slide Review Sodium (136-145) mEq/L Potassium (3.5-5.1) mEq/L Chloride (98-107) mEq/L Carbon Dioxide (21-32) mEq/L Anion Gap (5-15) BUN (7-18) mg/dL Creatinine (0.7-1.3) mg/dL Est Cr Clr Drug Dosing mL/min Estimated GFR (MDRD) (>60) mL/min BUN/Creatinine Ratio (14-18) Glucose (74-106) mg/dL POC Glucose 144 H 167 H (70-105) mg/dL Calcium (8.5-10.1) mg/dL Magnesium (1.8-2.4) mg/dl Blood Type A POSITIVE Gel Antibody Screen Negative Crossmatch See Detail 08/01/17 08/02/17 08/02/17 Range/Units 21:07 06:29 06:30 WBC 8.01 (4.23-9.07) K/mm3 RBC 2.71 L (4.63-6.08) M/mm3 Hgb 8.3 L (13.7-17.5) gm/L Hct 25.4 L (40.1-51.0) % MCV 93.7 H (79.0-92.2) fl MCH 30.6 (25.7-32.2) pg MCHC 32.7 (32.2-35.5) g/dl RDW Std Deviation 46.1 H (35.1-43.9) fL Plt Count 430 H (163-337) K/mm3 MPV 9.3 L (9.4-12.3) fl Neut % (Auto) 71.7 H (34.0-67.9) % Lymph % (Auto) 10.4 L (21.8-53.1) % [place] % (Auto) 10.2 (5.3-12.2) % Eos % (Auto) 5.6 (0.8-7.0) Baso % (Auto) 0.5 (0.1-1.2) % Neut # (Auto) 5.74 H (1.78-5.38) K/mm3 Lymph # (Auto) 0.83 L (1.32-3.57) K/mm3 [place] # (Auto) 0.82 (0.30-0.82) K/mm3 Eos # (Auto) 0.45 (0.04-0.54) K/mm3 Baso # (Auto) 0.04 (0.01-0.08) K/mm3 Manual Slide Review Abnormal smear Sodium (136-145) mEq/L Potassium (3.5-5.1) mEq/L Chloride (98-107) mEq/L Carbon Dioxide (21-32) mEq/L Anion Gap (5-15) BUN (7-18) mg/dL Creatinine (0.7-1.3) mg/dL Est Cr Clr Drug Dosing mL/min Estimated GFR (MDRD) (>60) mL/min BUN/Creatinine Ratio (14-18) Glucose (74-106) mg/dL POC Glucose 133 H 133 H (70-105) mg/dL Calcium (8.5-10.1) mg/dL Magnesium (1.8-2.4) mg/dl Blood Type Gel Antibody Screen Crossmatch 08/02/17 Range/Units 06:30 WBC (4.23-9.07) K/mm3 RBC (4.63-6.08) M/mm3 Hgb (13.7-17.5) gm/L Hct (40.1-51.0) % MCV (79.0-92.2) fl MCH (25.7-32.2) pg MCHC (32.2-35.5) g/dl RDW Std Deviation (35.1-43.9) fL Plt Count (163-337) K/mm3 MPV (9.4-12.3) fl Neut % (Auto) (34.0-67.9) % Lymph % (Auto) (21.8-53.1) % [place] % (Auto) (5.3-12.2) % Eos % (Auto) (0.8-7.0) Baso % (Auto) (0.1-1.2) % Neut # (Auto) (1.78-5.38) K/mm3 Lymph # (Auto) (1.32-3.57) K/mm3 [place] # (Auto) (0.30-0.82) K/mm3 Eos # (Auto) (0.04-0.54) K/mm3 Baso # (Auto) (0.01-0.08) K/mm3 Manual Slide Review Sodium 139 (136-145) mEq/L Potassium 3.5 (3.5-5.1) mEq/L Chloride 105 (98-107) mEq/L Carbon Dioxide 26 (21-32) mEq/L Anion Gap 11.5 (5-15) BUN 5 L (7-18) mg/dL Creatinine 0.6 L (0.7-1.3) mg/dL Est Cr Clr Drug Dosing 156.48 mL/min Estimated GFR (MDRD) > 60 (>60) mL/min BUN/Creatinine Ratio 8.3 L (14-18) Glucose 136 H (74-106) mg/dL POC Glucose (70-105) mg/dL Calcium 8.8 (8.5-10.1) mg/dL Magnesium 1.4 L (1.8-2.4) mg/dl Blood Type Gel Antibody Screen Crossmatch Med Orders - Current: Current Medications Acetaminophen (Tylenol) 650 mg PO Q4H PRN PRN Reason: Pain (Mild 1-3)/fever Albuterol/Ipratropium (Duoneb 3.0-0.5 Mg/3 Ml) 3 ml NEB Q4H PRN PRN Reason: Shortness Of Breath/wheezing Last Admin: 07/30/17 23:59 Dose: 3 ml Allopurinol (Zyloprim) 150 mg PO MoWeFr@0900 [facility] Last Admin: 08/01/17 10:07 Dose: 150 mg Amlodipine Besylate (Norvasc) 5 mg PO DAILY [facility] Last Admin: 08/02/17 09:15 Dose: 5 mg Ascorbic Acid (Vitamin C) 500 mg PO BID [facility] Last Admin: 08/02/17 09:12 Dose: 500 mg Benzocaine (Hurricaine 20% [place]) 15 ml MUCMEM Q4HR PRN PRN Reason: Sore Throat Last Admin: 07/31/17 08:19 Dose: 1 dose Benzocaine/Menthol (Cepacol Sore Throat) 1 lozenge MUCMEM Q4HR PRN PRN Reason: Sore Throat Last Admin: 08/02/17 00:01 Dose: 1 lozenge Benzonatate (Tessalon Perles) 200 mg PO TID PRN PRN Reason: Cough Last Admin: 08/02/17 00:50 Dose: 200 mg Bisacodyl (Dulcolax) 5 mg PO DAILY PRN PRN Reason: Constipation Calcium Carbonate (Calcium Carbonate/Vitamin D 1500 Mg-200 Unit) 1 tab PO BID [facility] Last Admin: 08/02/17 09:10 Dose: 1 tab Cephalexin (Keflex) 500 mg PO Q12H [facility] Last Admin: 08/02/17 09:10 Dose: 500 mg Clonidine HCl (Catapres) 0.1 mg PO Q12HR MEL Last Admin: 08/02/17 09:16 Dose: 0.1 mg Cyclobenzaprine HCl (Flexeril) 5 mg PO TID [facility] Last Admin: 08/02/17 09:12 Dose: 5 mg Dextrose/Water (Dextrose 50% In Water) 50 ml IVPUSH ASDIRECTED PRN PRN Reason: Hypoglycemia Docusate Sodium (Colace) 100 mg PO BID PRN PRN Reason: Constipation Last Admin: 08/01/17 06:23 Dose: 100 mg Famotidine (Pepcid) 20 mg PO BID [facility] Last Admin: 08/02/17 09:15 Dose: 20 mg Ferrous Sulfate (Ferrous Sulfate) 325 mg PO DAILY [facility] Last Admin: 08/02/17 09:16 Dose: 325 mg Guaifenesin/Phenylephrine HCl (Robitussin Dm) 10 ml PO Q4H PRN PRN Reason: Cough Last Admin: 08/01/17 23:42 Dose: 10 ml Hydralazine HCl (Apresoline) 20 mg IVPUSH Q4H PRN PRN Reason: Hypertension Last Admin: 07/31/17 05:58 Dose: 20 mg Hydrochlorothiazide (Hydrochlorothiazide) 12.5 mg PO BIDDIURETIC [facility] Last Admin: 08/02/17 06:37 Dose: 12.5 mg Hydromorphone HCl (Dilaudid) 0.5 mg IVPUSH Q2H PRN PRN Reason: Pain Last Admin: 07/29/17 03:06 Dose: 0.5 mg Promethazine HCl 12.5 mg/ (Sodium Chloride) 50.5 mls @ 100 mls/hr IV Q6H PRN PRN Reason: Nausea/Vomiting Sodium Chloride (Normal Saline) 1,000 mls @ 166.667 mls/hr IRR Q6H PRN PRN Reason: FOR CONTINUOUS BLADDER IRRIGAT Magnesium Sulfate 2 gm/ Premix 50 mls @ 25 mls/hr IV Q2H [facility] Stop: 08/02/17 14:59 Last Admin: 08/02/17 09:25 Dose: 25 mls/hr Indomethacin (Indocin) 25 mg PO DAILY PRN PRN Reason: Pain (moderate 4-6) Last Admin: 07/31/17 15:47 Dose: 25 mg Insulin Aspart (Novolog) 0 unit SUBCUT [facility] PRN Reason: Protocol Last Admin: 08/02/17 07:49 Dose: Not Given Lorazepam (Ativan) 0.5 mg IVPUSH Q4H PRN PRN Reason: Anxiety Last Admin: 08/02/17 01:37 Dose: 0.5 mg Losartan Potassium (Cozaar) 50 mg PO DAILY [facility] Last Admin: 08/02/17 09:18 Dose: 50 mg Magnesium Sulfate (Pharmacy To Dose - Magnesium Replacement) 0 dose .XX ASDIRECTED PRN PRN Reason: RX TO WATCH MAG LEVELS Metformin HCl (Glucophage) 1,000 mg PO BIDMEALS [facility] Last Admin: 08/02/17 06:37 Dose: 1,000 mg Metoprolol Succinate (Toprol Xl) 100 mg PO DAILY [facility] Last Admin: 08/02/17 09:16 Dose: 100 mg Metoprolol Tartrate (Lopressor) 5 mg IVPUSH Q4H PRN PRN Reason: Tachycardia Mirtazapine (Remeron) 15 mg PO BEDTIME [facility] Last Admin: 08/01/17 21:04 Dose: 15 mg Ondansetron HCl (Zofran) 4 mg IV Q6H PRN PRN Reason: Nausea/Vomiting Oxybutynin Chloride (Oxybutynin) 5 mg PO BID PRN PRN Reason: Other Last Admin: 07/29/17 11:34 Dose: 5 mg Oxycodone HCl (Oxycodone) 5 mg PO Q4H PRN PRN Reason: Pain (moderate 4-6) Last Admin: 07/31/17 06:54 Dose: 5 mg Polyethylene Glycol (Miralax) 17 gm PO DAILY [facility] Last Admin: 08/02/17 11:02 Dose: Not Given Potassium Chloride (Pharmacy To Dose - Potassium Replacement) 0 dose .XX ASDIRECTED PRN PRN Reason: RX TO WATCH K LEVELS Senna/Docusate Sodium (Senna Plus) 1 tab PO BID [facility] Last Admin: 08/02/17 09:18 Dose: 1 tab Tamsulosin HCl (Flomax) 0.4 mg PO DAILY [facility] Last Admin: 08/02/17 09:18 Dose: 0.4 mg Temazepam (Restoril) 30 mg PO BEDTIME PRN PRN Reason: Insomnia Last Admin: 07/30/17 21:34 Dose: 30 mg Discontinued Medications Benzonatate (Tessalon Perles) 100 mg PO TID PRN PRN Reason: Cough Last Admin: 07/29/17 11:33 Dose: 100 mg Clonidine HCl (Catapres) 0.1 mg PO DAILY [facility] Last Admin: 07/31/17 08:15 Dose: 0.1 mg Ferrous Sulfate (Ferrous Sulfate) 325 mg PO BID [facility] Last Admin: 07/30/17 09:04 Dose: 325 mg Sodium Chloride (Normal Saline) 1,000 mls @ 125 mls/hr IV ASDIRECTED [facility] Last Admin: 08/02/17 00:29 Dose: 125 mls/hr Ceftriaxone Sodium 2 gm/ (Sodium Chloride) 100 mls @ 200 mls/hr IV ONETIME ONE Stop: 07/29/17 12:36 Last Admin: 07/29/17 12:47 Dose: 200 mls/hr Ceftriaxone Sodium 1 gm/ (Sodium Chloride) 100 mls @ 200 mls/hr IV Q24H [facility] Last Admin: 07/31/17 08:19 Dose: 200 mls/hr Magnesium Sulfate 2 gm/ Premix 50 mls @ 25 mls/hr IV Q2H [facility] Stop: 07/30/17 15:29 Last Admin: 07/30/17 14:49 Dose: 25 mls/hr Magnesium Sulfate 2 gm/ Premix 50 mls @ 25 mls/hr IV Q2H [facility] Stop: 07/31/17 12:59 Last Admin: 07/31/17 13:24 Dose: 25 mls/hr Magnesium Sulfate 2 gm/ Premix 50 mls @ 25 mls/hr IV Q2H [facility] Stop: 08/01/17 14:14 Last Admin: 08/01/17 16:16 Dose: 50 mls/hr Insulin Aspart (Novolog) 0 unit SUBCUT ASDIRECTED [facility] PRN Reason: Protocol Non-Formulary Medication (Phenazopyridine Hcl) 200 mg PO Q8H [facility] Potassium Chloride (Klor-Con M20) 20 meq PO Q3H [facility] Stop: 07/29/17 11:01 Last Admin: 07/29/17 10:57 Dose: 20 meq Potassium Chloride (Klor-Con M20) 40 meq PO ONETIME ONE Stop: 07/31/17 09:01 Last Admin: 07/31/17 10:00 Dose: 40 meq Potassium Chloride (Klor-Con M20) 40 meq PO Q4H [facility] Stop: 08/01/17 12:01 Last Admin: 08/01/17 14:15 Dose: 40 meq Potassium Chloride (Klor-Con M20) 40 meq PO Q4H [facility] Stop: 08/01/17 14:16 Last Admin: 08/01/17 17:45 Dose: Not Given - Exam General: Reports: Alert, Oriented, Cooperative, No Acute Distress HEENT: Reports: Pupils Equal, Pupils Reactive, EOMI, Mucous Membr. Moist/[place] Neck: Reports: Supple, Trachea Midline, No JVD Lungs: Reports: Clear to Auscultation, Normal Respiratory Effort Cardiovascular: Reports: Regular Rate, Regular Rhythm GI/Abdominal Exam: Normal Bowel Sounds, Soft, Non-Tender, No Organomegaly, No Distention, No Abnormal Bruit, No Mass (Male) Exam: Deferred Rectal (Males) Exam: Deferred Back Exam: Reports: Normal Inspection, Decreased Range of Motion Extremities: Normal Inspection, Normal Range of Motion, Non-Tender, No Pedal Edema, Normal Capillary Refill Skin: Reports: Warm, Dry, Intact Neurological: Reports: No New Focal Deficit Psy/Mental Status: Reports: Alert, Normal Affect, Normal Mood *Q Meaningful Use (DIS) - VTE *Q VTE Criteria *Q: - Stroke *Q Stroke Criteria *Q: - AMI *Q AMI Criteria *Q:
[2017-08-02 13:09] VITALS: BP 120/72
== END 2017-08-02 14:45 | disposition home or self-care (01) | DRG 690 ==
LOC: JD.ED 21:33 → UNDOADMIN 07-29 01:07 → JD.MS 07-29 01:07 → UNDODISIN 08-02 14:45
PROVIDERS: ADMIT Internal Medicine; ATTEND Internal Medicine
DX: R31.0 Gross hematuria (principal); N30.01 Acute cystitis with hematuria; Z85.46 Personal history of malignant neoplasm of prostate; D50.0 Iron deficiency anemia secondary to blood loss (chronic); E87.6 Hypokalemia; E83.42 Hypomagnesemia; R33.9 Retention of urine, unspecified; J02.9 Acute pharyngitis, unspecified; I10 Essential (primary) hypertension; E11.9 Type 2 diabetes mellitus without complications; K21.9 Gastro-esophageal reflux disease without esophagitis; G89.29 Other chronic pain; M54.9 Dorsalgia, unspecified; M10.9 Gout, unspecified; F17.200 Nicotine dependence, unspecified, uncomplicated; H54.7 Unspecified visual loss; Z79.84 Long term (current) use of oral hypoglycemic drugs; Z79.82 Long term (current) use of aspirin; Z79.899 Other long term (current) drug therapy
CPT/HCPCS: 36415; 36430; 51700; 51798; 80048; 80053; 82962; 83735; 84153; 85014; 85018; 85025; 85027; 86850; 86900; 86901; 86922; 87081; 87430; 87641; 87804; 97110-GP; 97116-GP; 97163-GP; 97165-GO; 99285; 99285-25; A9270-GY; J0360; J0696; J1170; J1815-GY; J2060; J3475; J7030; J7040; P9016

== ENCOUNTER 2017-08-07 02:20 | Emergency (ER) | payer MEDICARE, OTHER, MEDICAID ==
[2017-08-07] MEDS ORDERED: Sodium Chloride 0.9% 10 ML Syringe FLUSH PRN (02:32)
[2017-08-07] MEDS ORDERED: Sodium Chloride 0.9% 1,000 ML IV ONE (02:32)
--- NOTE | 2017-08-07 02:49 | EDM.PDOC ---
<Allen Mosqueda - Last Filed: 08/07/17 19:17> ED HPI GENERAL MEDICAL PROBLEM - General Chief Complaint: Genitourinary Problem Stated Complaint: [facility] Time Seen by Provider: 08/07/17 02:22 - Related Data Allergies Allergy/AdvReac Type Severity Reaction Status Date / Time No Known Allergies Allergy Verified 07/29/17 00:51 Home Meds: Home Meds Allopurinol [Zyloprim] 150 mg PO MOWEFR 08/17/15 [History] Oxybutynin 5 mg PO BID PRN MDD overactive bladder 08/17/15 [History] metFORMIN [Glucophage] 1,000 mg PO BID 08/17/15 [History] Ascorbate Calcium [Vitamin C] 500 mg PO BID 01/04/17 [History] Calcium Carbonate/Vitamin D3 [Calcium 500-Vit D3 200 Caplet] 1 tab PO BID [History] Polyethylene Glycol 3350 [MiraLAX] 17 gm PO DAILY 01/04/17 [History] Sennosides/Docusate Sodium [Senna-Docusate Sodium] 1 tab PO BID 01/04/17 [ History] amLODIPine [Norvasc] 5 mg PO DAILY 01/04/17 [History] Phenazopyridine HCl [Pyridium] 200 mg PO Q8H #6 tablet 07/18/17 [Rx] Benzonatate 200 mg PO TID PRN 07/28/17 [History] Cyclobenzaprine [Flexeril] 5 mg PO TID 07/28/17 [History] Losartan [Cozaar] 50 mg PO DAILY 07/28/17 [History] Metoprolol Succinate [Toprol XL] 100 mg PO DAILY 07/28/17 [History] Mirtazapine 15 mg PO BEDTIME 07/28/17 [History] Tamsulosin [Flomax] 0.4 mg PO DAILY 07/28/17 [History] Ferrous Sulfate 325 mg PO DAILY 07/29/17 [History] Indomethacin [Indocin] 25 mg PO DAILY PRN 07/29/17 [History] Nicotine [Nicoderm CQ] 1 TRDERM DAILY 07/29/17 [History] Non-Formulary Medication [NF Drug] 07/29/17 [History] Triamcinolone Acetonide [Kenalog-40] 40 mg INJECT ONETIME 07/29/17 [History] Aspirin [Adult Low Dose Aspirin EC] 81 mg PO DAILY #30 08/02/17 [Rx] Benzocaine/Cetylpyrd/Menthol [Cepacol Sore Throat] 1 lozenge MUCMEM Q4HR PRN # 15 mishel 08/02/17 [Rx] Magnesium Oxide [Magnesium] 400 mg PO BID #60 tablet 08/02/17 [Rx] cloNIDine HCl [Catapres] 0.1 mg PO BID 08/02/17 [History] oxyCODONE 10 mg PO Q6H PRN #10 tablet 08/02/17 [Rx] Course - Vital Signs Last Recorded V/S: Last Vital Signs Temp 36.8 C 08/07/17 04:05 Pulse 92 08/07/17 08:09 Resp 18 08/07/17 08:09 BP 123/64 08/07/17 04:05 Pulse Ox 95 08/07/17 08:09 - Orders/Labs/Meds Orders: Active Orders 24 hr Category Date Time Status Sierra Catheter Insertion [Insert Urinary Catheter] [OM. Care 08/07/17 03:00 Ordered PC] Q24H Peripheral IV Care [RC] . DIRECTED Care 08/07/17 02:32 Active Urinary Catheter Assessment [RC] ASDIRECTED Care 08/07/17 02:57 Active Consult to [facility] [CONS] Routine Cons 08/07/17 06:49 Active CULTURE URINE [RM] Stat Lab 08/07/17 02:53 Results Peripheral IV Insertion Adult [OM.PC] Routine Oth 08/07/17 02:32 Ordered Labs: Laboratory Tests 08/07/17 08/07/17 08/07/17 Range/Units 02:40 02:40 02:40 WBC 11.64 H (4.23-9.07) K/mm3 RBC 2.94 L (4.63-6.08) M/mm3 Hgb 8.9 L (13.7-17.5) gm/L Hct 27.3 L (40.1-51.0) % MCV 92.9 H (79.0-92.2) fl MCH 30.3 (25.7-32.2) pg MCHC 32.6 (32.2-35.5) g/dl RDW Std Deviation 44.5 H (35.1-43.9) fL Plt Count 511 H (163-337) K/mm3 MPV 9.1 L (9.4-12.3) fl Neut % (Auto) 81.2 H (34.0-67.9) % Lymph % (Auto) 7.3 L (21.8-53.1) % Berg[place] % (Auto) 7.3 (5.3-12.2) % Eos % (Auto) 2.7 (0.8-7.0) Baso % (Auto) 0.6 (0.1-1.2) % Neut # (Auto) 9.45 H (1.78-5.38) K/mm3 Lymph # (Auto) 0.85 L (1.32-3.57) K/mm3 [place] # (Auto) 0.85 H (0.30-0.82) K/mm3 Eos # (Auto) 0.32 (0.04-0.54) K/mm3 Baso # (Auto) 0.07 (0.01-0.08) K/mm3 Manual Slide Review Abnormal smear PT 11.4 (8.0-13.0) SECONDS INR 1.04 Sodium 136 (136-145) mEq/L Potassium 3.5 (3.5-5.1) mEq/L Chloride 98 (98-107) mEq/L Carbon Dioxide 25 (21-32) mEq/L Anion Gap 16.5 H (5-15) BUN 11 (7-18) mg/dL Creatinine 1.1 (0.7-1.3) mg/dL Est Cr Clr Drug Dosing 85.35 mL/min Estimated GFR (MDRD) > 60 (>60) mL/min BUN/Creatinine Ratio 10.0 L (14-18) Glucose 251 H (74-106) mg/dL Calcium 9.1 (8.5-10.1) mg/dL Total Bilirubin 0.3 (0.2-1.0) mg/dL AST 20 (15-37) U/L ALT 20 (16-63) U/L Alkaline Phosphatase 213 H (46-116) U/L Total Protein 7.0 (6.4-8.2) g/dl Albumin 2.6 L (3.4-5.0) g/dl Globulin 4.4 gm/dL Albumin/Globulin Ratio 0.6 L (1-2) Urine Color (Yellow) Urine Appearance (Clear) Urine pH (5.0-8.0) Ur Specific Stem (1.005-1.030) Urine Protein (Negative) Urine Glucose (UA) (Negative) Urine Ketones (Negative) Urine Occult Blood (Negative) Urine Nitrite (Negative) Urine Bilirubin (Negative) Urine Urobilinogen (0.2-1.0) Ur Leukocyte Esterase (Negative) Urine RBC (0-5) /hpf Urine WBC (0-5) /hpf Ur Epithelial Cells (0-5) /hpf Urine Bacteria (FEW) /hpf Urine Mucus (FEW) /hpf Blood Type Gel Antibody Screen 08/07/17 08/07/17 08/07/17 Range/Units 02:40 02:53 07:22 WBC (4.23-9.07) K/mm3 RBC (4.63-6.08) M/mm3 Hgb 8.6 L (13.7-17.5) gm/L Hct 27.0 L (40.1-51.0) % MCV (79.0-92.2) fl MCH (25.7-32.2) pg MCHC (32.2-35.5) g/dl RDW Std Deviation (35.1-43.9) fL Plt Count (163-337) K/mm3 MPV (9.4-12.3) fl Neut % (Auto) (34.0-67.9) % Lymph % (Auto) (21.8-53.1) % [place] % (Auto) (5.3-12.2) % Eos % (Auto) (0.8-7.0) Baso % (Auto) (0.1-1.2) % Neut # (Auto) (1.78-5.38) K/mm3 Lymph # (Auto) (1.32-3.57) K/mm3 [place] # (Auto) (0.30-0.82) K/mm3 Eos # (Auto) (0.04-0.54) K/mm3 Baso # (Auto) (0.01-0.08) K/mm3 Manual Slide Review PT (8.0-13.0) SECONDS INR Sodium (136-145) mEq/L Potassium (3.5-5.1) mEq/L Chloride (98-107) mEq/L Carbon Dioxide (21-32) mEq/L Anion Gap (5-15) BUN (7-18) mg/dL Creatinine (0.7-1.3) mg/dL Est Cr Clr Drug Dosing mL/min Estimated GFR (MDRD) (>60) mL/min BUN/Creatinine Ratio (14-18) Glucose (74-106) mg/dL Calcium (8.5-10.1) mg/dL Total Bilirubin (0.2-1.0) mg/dL AST (15-37) U/L ALT (16-63) U/L Alkaline Phosphatase (46-116) U/L Total Protein (6.4-8.2) g/dl Albumin (3.4-5.0) g/dl Globulin gm/dL Albumin/Globulin Ratio (1-2) Urine Color Red H (Yellow) Urine Appearance Cloudy H (Clear) Urine pH 7.5 (5.0-8.0) Ur Specific Stem 1.025 (1.005-1.030) Urine Protein 3+ H (Negative) Urine Glucose (UA) Trace H (Negative) Urine Ketones Negative (Negative) Urine Occult Blood 3+ H (Negative) Urine Nitrite Negative (Negative) Urine Bilirubin Negative (Negative) Urine Urobilinogen 0.2 (0.2-1.0) Ur Leukocyte Esterase 1+ H (Negative) Urine RBC Too numerous to cnt H (0-5) /hpf Urine WBC 0-5 (0-5) /hpf Ur Epithelial Cells Not seen (0-5) /hpf Urine Bacteria Few (FEW) /hpf Urine Mucus Not seen (FEW) /hpf Blood Type A POSITIVE Gel Antibody Screen Negative 08/07/17 Range/Units 18:54 WBC (4.23-9.07) K/mm3 RBC (4.63-6.08) M/mm3 Hgb 9.0 L (13.7-17.5) gm/L Hct 27.9 L (40.1-51.0) % MCV (79.0-92.2) fl MCH (25.7-32.2) pg MCHC (32.2-35.5) g/dl RDW Std Deviation (35.1-43.9) fL Plt Count (163-337) K/mm3 MPV (9.4-12.3) fl Neut % (Auto) (34.0-67.9) % Lymph % (Auto) (21.8-53.1) % Berg[place] % (Auto) (5.3-12.2) % Eos % (Auto) (0.8-7.0) Baso % (Auto) (0.1-1.2) % Neut # (Auto) (1.78-5.38) K/mm3 Lymph # (Auto) (1.32-3.57) K/mm3 Berg[place] # (Auto) (0.30-0.82) K/mm3 Eos # (Auto) (0.04-0.54) K/mm3 Baso # (Auto) (0.01-0.08) K/mm3 Manual Slide Review PT (8.0-13.0) SECONDS INR Sodium (136-145) mEq/L Potassium (3.5-5.1) mEq/L Chloride (98-107) mEq/L Carbon Dioxide (21-32) mEq/L Anion Gap (5-15) BUN (7-18) mg/dL Creatinine (0.7-1.3) mg/dL Est Cr Clr Drug Dosing mL/min Estimated GFR (MDRD) (>60) mL/min BUN/Creatinine Ratio (14-18) Glucose (74-106) mg/dL Calcium (8.5-10.1) mg/dL Total Bilirubin (0.2-1.0) mg/dL AST (15-37) U/L ALT (16-63) U/L Alkaline Phosphatase (46-116) U/L Total Protein (6.4-8.2) g/dl Albumin (3.4-5.0) g/dl Globulin gm/dL Albumin/Globulin Ratio (1-2) Urine Color (Yellow) Urine Appearance (Clear) Urine pH (5.0-8.0) Ur Specific Stem (1.005-1.030) Urine Protein (Negative) Urine Glucose (UA) (Negative) Urine Ketones (Negative) Urine Occult Blood (Negative) Urine Nitrite (Negative) Urine Bilirubin (Negative) Urine Urobilinogen (0.2-1.0) Ur Leukocyte Esterase (Negative) Urine RBC (0-5) /hpf Urine WBC (0-5) /hpf Ur Epithelial Cells (0-5) /hpf Urine Bacteria (FEW) /hpf Urine Mucus (FEW) /hpf Blood Type Gel Antibody Screen Meds: Medications Discontinued Medications Generic Name Dose Route Start Last Admin Trade Name Freq PRN Reason Stop Dose Admin Belladonna Alkaloids/Opium 1 supp 08/07/17 16:59 08/07/17 17:08 B & O Supprettes No. 15a RECTAL 08/07/17 17:00 1 supp ONETIME ONE Administration Benzonatate 200 mg 08/07/17 03:39 08/07/17 03:44 Tessalon Perles PO 08/07/17 03:40 200 mg ONETIME ONE Administration Sodium Chloride 1,000 mls @ 1,000 mls/hr 08/07/17 02:32 08/07/17 02:44 Normal Saline IV 08/07/17 03:31 1,000 mls/hr ONETIME ONE Administration Sodium Chloride 10 ml 08/07/17 02:32 08/07/17 02:44 Saline Flush FLUSH 10 ml ASDIRECTED PRN Administration Keep Vein Open - Re-Assessments/Exams Free Text/Narrative Re-Assessment/Exam: 08/07/17 07:35 Assumed care at change of shift patient's repeat H&H is back at 8.6 and 27% respectively. Awaiting social work evaluation. Patient denies any significant discomfort. He has a catheter in place this is draining fairly well still a little bloody no clots. 08/07/17 12:15 We are attempting to find swing bed placement for him at this point and waiting for this to come together 08/07/17 16:30 We have failed several snf placements. Home health can see him twice a week. I discussed situation with [facility] who had him admitted first time this month they sent him to [facility] in [place]. They think he might have a new metastatic lesion but they have nothing to offer they've recommended he go to [facility] I am uncertain what is happened with that the patient does not have good social structure and does not have the ability to get to male I initiated contact with [facility] to see about possibly transferring him there this evening and we are working on that at this point. 08/07/17 19:18 Case was reviewed with Dr. Varghese urologist at [facility] who would really like for us to try and arrange transfer to a facility that has urology that is closer to us. He thinks the patient would benefit from suprapubic catheter placement cystoscopy and clot evacuation. I discussed this with Dr. Pedroza urologist on-call at [facility] in [place] who doesn't feel he could evaluate the patient and treat him if it's really been said by [facility] that the patient needs to go to male. I did discuss this with [facility] in [place] Dr. Crisostomo informed the on-call coordinator the patient needs to go to male I was not able to speak with the physician. At this time and attempting to get a hold of Dr. Varghese again to discuss transfer. Follow-up H&H shows a stable anemia at 9.0 and 27.9% respectively Departure - Departure Disposition: DC/Tfer to [facility] Clinical Impression: Hematuria syndrome, Hemorrhagic cystitis, Anemia due to chronic blood loss, Urinary retention, Gross hematuria - Discharge Information Instructions: Hematuria, Adult Referrals: PCP,None [Primary Care Provider] - Forms: ED Department Discharge - My Orders Last 24 Hours: My Active Orders 08/07/17 02:32 Peripheral IV Care [RC] . DIRECTED Peripheral IV Insertion Adult [OM.PC] Routine 08/07/17 02:53 CULTURE URINE [RM] Stat 08/07/17 02:57 Urinary Catheter Assessment [RC] ASDIRECTED 08/07/17 03:00 Sierra Catheter Insertion [Insert Urinary Catheter] [OM.PC] Q24H 08/07/17 06:49 Consult to [facility] [CONS] Routine - Assessment/Plan Last 24 Hours: My Active Orders 08/07/17 02:32 Peripheral IV Care [RC] . DIRECTED Peripheral IV Insertion Adult [OM.PC] Routine 08/07/17 02:53 CULTURE URINE [RM] Stat 08/07/17 02:57 Urinary Catheter Assessment [RC] ASDIRECTED 08/07/17 03:00 Sierra Catheter Insertion [Insert Urinary Catheter] [OM.PC] Q24H 08/07/17 06:49 Consult to [facility] [CONS] Routine <Renan Bryson - Last Filed: 08/07/17 22:35> ED HPI GENERAL MEDICAL PROBLEM - General Source of Information: Reports: Patient, EMS History Limitations: Reports: No Limitations - History of Present Illness INITIAL COMMENTS - FREE TEXT/NARRATIVE: 62 y/o M with hx prostate CA s/p prostatectomy and chemo/radiation complicated by 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 He was admitted here from 07/29- and had bladder irrigation and was discharged. He followed up with urologist in [place] and states he was told there was nothing they could do for him and that he was referred to consult at [facility]. He states he felt too poorly yesterday to go to his PCP f/u appointment. Feels generally weak and dizzy. Has some nausea. No fever. No abdominal pain. States the blood in the urine returned and he's been passing clots. Doesn't feel like he's been completely emptying his bladder. He lives alone, called EMS who brought him here. Groin Pain Score (Numeric/FACES): 8 Past Medical History HEENT History: Reports: Impaired Vision Other HEENT History: states he does not wear glasses though Cardiovascular History: Reports: Hypertension Gastrointestinal History: Reports: GERD Genitourinary History: Reports: Other (See Below) Other Genitourinary History: prostate cancer Musculoskeletal History: Reports: Back Pain, Chronic, Fracture, Gout Neurological History: Reports: Brain Injury Psychiatric History: Reports: None Endocrine/Metabolic History: Reports: Diabetes, Type II Hematologic History: Reports: None Immunologic History: Reports: None Oncologic (Cancer) History: Reports: Prostate Other Oncologic History: received radiation Dermatologic History: Reports: None - Infectious Disease History Infectious Disease History: Reports: None - Past Surgical History Respiratory Surgical History: Reports: None GI Surgical History: Reports: Colonoscopy Male Surgical History: Reports: TURP-Transurethral Resection of Prostate Neurological Surgical History: Reports: Lumbar Spine Musculoskeletal Surgical History: Reports: Knee Replacement, ORIF, Other (See Below) Social & Family History - Family History Family Medical History: Unobtainable - Tobacco Use Smoking Status *Q: Never Smoker Years of Tobacco use: 45 Packs/Tins Daily: 0.2 Used Tobacco, but Quit: No Second Hand Smoke Exposure: No - Caffeine Use Caffeine Use: Reports: None Other Caffeine Use: tea 3-4 cups a day 2 cans soda a day - Alcohol Use Days Per Week of Alcohol Use: 4 Number of Drinks Per Day: 3 Total Drinks Per Week: 12 - Recreational Drug Use Recreational Drug Use: No - Living Situation & Occupation Living situation: Reports: , Alone Occupation: Unemployed ED ROS GENERAL - Review of Systems Review Of Systems: See Below Constitutional: Reports: Malaise, Weakness, Fatigue. Denies: Fever HEENT: Reports: No Symptoms Respiratory: Reports: Cough. Denies: Shortness of Breath Cardiovascular: Denies: Chest Pain Endocrine: Reports: Fatigue GI/Abdominal: Denies: Abdominal Pain, Vomiting : Reports: Dysuria, Hematuria Musculoskeletal: Reports: No Symptoms Skin: Reports: Pallor Neurological: Reports: Dizziness Psychiatric: Reports: No Symptoms Hematologic/Lymphatic: Reports: No Symptoms Immunologic: Reports: No Symptoms ED EXAM, RENAL/ - Physical Exam Exam: See Below Exam Limited By: No Limitations General Appearance: Alert, WD/WN, No Apparent Distress, Other (pale ) Eye Exam: Bilateral Eye: Normal Inspection Ears: Normal External Exam Nose: Normal Inspection Throat/Mouth: Normal Inspection, Normal Voice, No Airway Compromise Head: Atraumatic, Normocephalic Neck: Normal Inspection Respiratory/Chest: No Respiratory Distress, Lungs Clear, Normal Breath Sounds Cardiovascular: Normal Peripheral Pulses, Regular Rate, Rhythm GI/Abdominal: Soft, Non-Tender, No Distention. No: Rebound Back Exam: Normal Inspection. No: CVA Tenderness (L), CVA Tenderness (R) Extremities: Normal Inspection Neurological: Alert, Oriented, Normal Cognition, No Motor/Sensory Deficits Psychiatric: Normal Affect, Normal Mood Skin Exam: Warm, Dry, No Rash, Pallor Course - Orders/Labs/Meds Labs: Laboratory Tests 08/07/17 08/07/17 08/07/17 Range/Units 02:40 02:40 02:40 WBC 11.64 H (4.23-9.07) K/mm3 RBC 2.94 L (4.63-6.08) M/mm3 Hgb 8.9 L (13.7-17.5) gm/L Hct 27.3 L (40.1-51.0) % MCV 92.9 H (79.0-92.2) fl MCH 30.3 (25.7-32.2) pg MCHC 32.6 (32.2-35.5) g/dl RDW Std Deviation 44.5 H (35.1-43.9) fL Plt Count 511 H (163-337) K/mm3 MPV 9.1 L (9.4-12.3) fl Neut % (Auto) 81.2 H (34.0-67.9) % Lymph % (Auto) 7.3 L (21.8-53.1) % Bergen % (Auto) 7.3 (5.3-12.2) % Eos % (Auto) 2.7 (0.8-7.0) Baso % (Auto) 0.6 (0.1-1.2) % Neut # (Auto) 9.45 H (1.78-5.38) K/mm3 Lymph # (Auto) 0.85 L (1.32-3.57) K/mm3 Bergen # (Auto) 0.85 H (0.30-0.82) K/mm3 Eos # (Auto) 0.32 (0.04-0.54) K/mm3 Baso # (Auto) 0.07 (0.01-0.08) K/mm3 Manual Slide Review Abnormal smear PT 11.4 (8.0-13.0) SECONDS INR 1.04 Sodium 136 (136-145) mEq/L Potassium 3.5 (3.5-5.1) mEq/L Chloride 98 (98-107) mEq/L Carbon Dioxide 25 (21-32) mEq/L Anion Gap 16.5 H (5-15) BUN 11 (7-18) mg/dL Creatinine 1.1 (0.7-1.3) mg/dL Est Cr Clr Drug Dosing 85.35 mL/min Estimated GFR (MDRD) > 60 (>60) mL/min BUN/Creatinine Ratio 10.0 L (14-18) Glucose 251 H (74-106) mg/dL Calcium 9.1 (8.5-10.1) mg/dL Total Bilirubin 0.3 (0.2-1.0) mg/dL AST 20 (15-37) U/L ALT 20 (16-63) U/L Alkaline Phosphatase 213 H (46-116) U/L Total Protein 7.0 (6.4-8.2) g/dl Albumin 2.6 L (3.4-5.0) g/dl Globulin 4.4 gm/dL Albumin/Globulin Ratio 0.6 L (1-2) Urine Color (Yellow) Urine Appearance (Clear) Urine pH (5.0-8.0) Ur Specific Stem (1.005-1.030) Urine Protein (Negative) Urine Glucose (UA) (Negative) Urine Ketones (Negative) Urine Occult Blood (Negative) Urine Nitrite (Negative) Urine Bilirubin (Negative) Urine Urobilinogen (0.2-1.0) Ur Leukocyte Esterase (Negative) Urine RBC (0-5) /hpf Urine WBC (0-5) /hpf Ur Epithelial Cells (0-5) /hpf Urine Bacteria (FEW) /hpf Urine Mucus (FEW) /hpf Blood Type Gel Antibody Screen 08/07/17 08/07/17 08/07/17 Range/Units 02:40 02:53 07:22 WBC (4.23-9.07) K/mm3 RBC (4.63-6.08) M/mm3 Hgb 8.6 L (13.7-17.5) gm/L Hct 27.0 L (40.1-51.0) % MCV (79.0-92.2) fl MCH (25.7-32.2) pg MCHC (32.2-35.5) g/dl RDW Std Deviation (35.1-43.9) fL Plt Count (163-337) K/mm3 MPV (9.4-12.3) fl Neut % (Auto) (34.0-67.9) % Lymph % (Auto) (21.8-53.1) % Bergen % (Auto) (5.3-12.2) % Eos % (Auto) (0.8-7.0) Baso % (Auto) (0.1-1.2) % Neut # (Auto) (1.78-5.38) K/mm3 Lymph # (Auto) (1.32-3.57) K/mm3 Bergen # (Auto) (0.30-0.82) K/mm3 Eos # (Auto) (0.04-0.54) K/mm3 Baso # (Auto) (0.01-0.08) K/mm3 Manual Slide Review PT (8.0-13.0) SECONDS INR Sodium (136-145) mEq/L Potassium (3.5-5.1) mEq/L Chloride (98-107) mEq/L Carbon Dioxide (21-32) mEq/L Anion Gap (5-15) BUN (7-18) mg/dL Creatinine (0.7-1.3) mg/dL Est Cr Clr Drug Dosing mL/min Estimated GFR (MDRD) (>60) mL/min BUN/Creatinine Ratio (14-18) Glucose (74-106) mg/dL Calcium (8.5-10.1) mg/dL Total Bilirubin (0.2-1.0) mg/dL AST (15-37) U/L ALT (16-63) U/L Alkaline Phosphatase (46-116) U/L Total Protein (6.4-8.2) g/dl Albumin (3.4-5.0) g/dl Globulin gm/dL Albumin/Globulin Ratio (1-2) Urine Color Red H (Yellow) Urine Appearance Cloudy H (Clear) Urine pH 7.5 (5.0-8.0) Ur Specific Stem 1.025 (1.005-1.030) Urine Protein 3+ H (Negative) Urine Glucose (UA) Trace H (Negative) Urine Ketones Negative (Negative) Urine Occult Blood 3+ H (Negative) Urine Nitrite Negative (Negative) Urine Bilirubin Negative (Negative) Urine Urobilinogen 0.2 (0.2-1.0) Ur Leukocyte Esterase 1+ H (Negative) Urine RBC Too numerous to cnt H (0-5) /hpf Urine WBC 0-5 (0-5) /hpf Ur Epithelial Cells Not seen (0-5) /hpf Urine Bacteria Few (FEW) /hpf Urine Mucus Not seen (FEW) /hpf Blood Type A POSITIVE Gel Antibody Screen Negative 08/07/17 Range/Units 18:54 WBC (4.23-9.07) K/mm3 RBC (4.63-6.08) M/mm3 Hgb 9.0 L (13.7-17.5) gm/L Hct 27.9 L (40.1-51.0) % MCV (79.0-92.2) fl MCH (25.7-32.2) pg MCHC (32.2-35.5) g/dl RDW Std Deviation (35.1-43.9) fL Plt Count (163-337) K/mm3 MPV (9.4-12.3) fl Neut % (Auto) (34.0-67.9) % Lymph % (Auto) (21.8-53.1) % Bergen % (Auto) (5.3-12.2) % Eos % (Auto) (0.8-7.0) Baso % (Auto) (0.1-1.2) % Neut # (Auto) (1.78-5.38) K/mm3 Lymph # (Auto) (1.32-3.57) K/mm3 [place] # (Auto) (0.30-0.82) K/mm3 Eos # (Auto) (0.04-0.54) K/mm3 Baso # (Auto) (0.01-0.08) K/mm3 Manual Slide Review PT (8.0-13.0) SECONDS INR Sodium (136-145) mEq/L Potassium (3.5-5.1) mEq/L Chloride (98-107) mEq/L Carbon Dioxide (21-32) mEq/L Anion Gap (5-15) BUN (7-18) mg/dL Creatinine (0.7-1.3) mg/dL Est Cr Clr Drug Dosing mL/min Estimated GFR (MDRD) (>60) mL/min BUN/Creatinine Ratio (14-18) Glucose (74-106) mg/dL Calcium (8.5-10.1) mg/dL Total Bilirubin (0.2-1.0) mg/dL AST (15-37) U/L ALT (16-63) U/L Alkaline Phosphatase (46-116) U/L Total Protein (6.4-8.2) g/dl Albumin (3.4-5.0) g/dl Globulin gm/dL Albumin/Globulin Ratio (1-2) Urine Color (Yellow) Urine Appearance (Clear) Urine pH (5.0-8.0) Ur Specific Stem (1.005-1.030) Urine Protein (Negative) Urine Glucose (UA) (Negative) Urine Ketones (Negative) Urine Occult Blood (Negative) Urine Nitrite (Negative) Urine Bilirubin (Negative) Urine Urobilinogen (0.2-1.0) Ur Leukocyte Esterase (Negative) Urine RBC (0-5) /hpf Urine WBC (0-5) /hpf Ur Epithelial Cells (0-5) /hpf Urine Bacteria (FEW) /hpf Urine Mucus (FEW) /hpf Blood Type Gel Antibody Screen - Re-Assessments/Exams Free Text/Narrative Re-Assessment/Exam: 08/07/17 06:50 Patient was seen by urology in [facility] a few days ago who, per the patient, basically said there was nothing that they could do for him and that he should be referred to [facility]. Sierra placed here, bladder irrigated, output is now still blood-tinged but clearing. Today, the patient looks well, has normal vital signs at this time, has a mildly low hematocrit at but is not at a level that needs transfusion. His other labs are unremarkable. We will repeat a CBC now to ensure that he didn't have a significant hematocrit drop. Discussed with Dr. Hernandez. We agree that as long as he hasn't had a significant drop in his hematocrit this is a problem for which home care would be appropriate. However, the patient seems to be having a hard time functioning at home. He's had frequent emergency department visits and admissions. He has a history of a prior brain injury and seems to have very poor insight into his health and extremely limited ability to care for himself. We will ask social work to see him this morning to see if they can arrange further services for him. Will sign out to Dr. Mosqueda - plan to f/u hematocrit and arrange final disposition. 08/07/17 22:34 Free Text/Narrative Re-Assessment/Exam: 08/07/17 20:15 I reassumed care for the patient at 19:00 on 08/07. At this point, he has been in the ED for 16 hours. He has had multiple H/H's which are stable. Per Dr. Mosqueda, there has been trouble with the 3 way irrigation catheter clotting off multiple times. However, irrigation is currently in progress and it appears hematuria has nearly cleared at this moment. Dr. Mosqueda has had numerous conversations with urologists in [place] - see his documentation - and has not yet found an accepting MD who is willing to take this patient for transfer. Per Dr. Varghese at [facility], next steps in management may include surgical evacuation of clot and placement of a suprapubic catheter as well as penile catheter to allow for CBI through larger bore catheters. I attempted to re-contact Dr. Crisostomo, financial institution branch manager urologist for [facility] where patient has been cared for previously, but was told that Dr. Crisostomo is unwilling to speak with me. Rationale per stock transfer clerk is that he has nothing to offer the patient. I stated that I was just hoping to converse re: [place] recommendations and was still not permitted to speak with him. Per stock transfer clerk, he is also not willing to have a direct conversation with [place] urologist. I next spoke with Dr. Varghese at [facility] who is willing to accept this patient for transfer. Transportation arrangements are in progress. Meanwhile, we are feeding patient as he has been NPO all day in anticipation of a transfer with possible surgical procedure. He states he feels OK. Vital signs continue to be stable. Departure - Departure Time of Disposition: 20:20
[2017-08-07] MEDS ORDERED: Benzonatate 100 MG Cap PO ONE (03:39)
[2017-08-07 04:10] VITALS: BP 123/64
[2017-08-07] MEDS ORDERED: Belladonna Alkaloids/Opium 16.2-30 MG Supp RECTAL ONE (16:59)
== END 2017-08-07 21:10 | disposition critical access hospital (66) ==
LOC: JD.ED 02:20
DX: N30.91 Cystitis, unspecified with hematuria (principal); R33.9 Retention of urine, unspecified; D50.0 Iron deficiency anemia secondary to blood loss (chronic); I10 Essential (primary) hypertension; E11.9 Type 2 diabetes mellitus without complications; Z79.84 Long term (current) use of oral hypoglycemic drugs; Z79.82 Long term (current) use of aspirin; Z79.899 Other long term (current) drug therapy
CPT/HCPCS: 36415; 51700; 51702; 80053; 81001; 85014; 85018; 85025; 85610; 86850; 86900; 86901; 87086; 96360; 99284; A9270; J7040; J7050; 87088; 87186